=== PATIENT | male | born 1955 | race African-American/Black ===

== ENCOUNTER 2018-09-19 09:10 | Inpatient (IN) | payer BC ==
[2018-09-19] MEDS ORDERED: NORMAL SALINE 1000 ML 1,000 ML IV ONE ×2 (09:43→13:18)
--- NOTE | 2018-09-19 09:46 | ER Document Report ---
ED Medical Screen (RME) - General Chief Complaint: Fever Stated Complaint: FLU SYMPTOMS Time Seen by Provider: 09/19/18 09:40 Notes: 63 years old male with a history of diabetes hypertension hyperlipidemia, brought in today with nearly 2-3 weeks history of general body aches and pain malaise nausea vomiting as well as coughing but largely dry cough. Today her heart rate is 137 with BP around 104 oh systole. Examination he appears to be weak but no other definite positive finding at this point. - Related Data Allergies/Adverse Reactions: No Known Allergies Allergy (Unverified 09/19/18 09:13) Physical Exam - Vital signs Vitals: Temp Pulse Resp BP Pulse Ox 98.0 F 134 H 24 H 104/58 L 97 09/19/18 09:32 09/19/18 09:32 09/19/18 09:32 09/19/18 09:32 09/19/18 09:32 Course - Vital Signs Vital signs: Temp Pulse Resp BP Pulse Ox 98.0 F 134 H 24 H 104/58 L 97 09/19/18 09:32 09/19/18 09:32 09/19/18 09:32 09/19/18 09:32 09/19/18 09:32
--- NOTE | 2018-09-19 10:38 | RADIOLOGY REPORT (SQ) ---
EXAM DESCRIPTION: KUB/ABDOMEN (SINGLE VIEW) COMPLETED DATE/TIME: 09/19/2018 10:25 am REASON FOR STUDY: Nausea vomiting COMPARISON: None. NUMBER OF VIEWS: One view. TECHNIQUE: Supine radiographic image of the abdomen acquired. LIMITATIONS: None. FINDINGS: BOWEL GAS PATTERN: Normal bowel gas pattern. No dilated loops. CALCIFICATIONS: No suspicious calcifications. SOFT TISSUES: No gross mass or suggestion of organomegaly. HARDWARE: None. BONES: No bone lesions or fracture. OTHER: No other significant finding. IMPRESSION: NO RADIOGRAPHIC EVIDENCE FOR ACUTE ABDOMINAL DISEASE. Reading location - IP/workstation name: [email or web address]
--- NOTE | 2018-09-19 10:38 | RADIOLOGY REPORT (SQ) ---
EXAM DESCRIPTION: CHEST SINGLE VIEW COMPLETED DATE/TIME: 09/19/2018 10:25 am REASON FOR STUDY: Cough COMPARISON: None. EXAM PARAMETERS: NUMBER OF VIEWS: One view. TECHNIQUE: Single frontal radiographic view of the chest acquired. RADIATION DOSE: NA LIMITATIONS: None. FINDINGS: LUNGS AND PLEURA: No opacities, masses or pneumothorax. No pleural effusion. MEDIASTINUM AND HILAR STRUCTURES: No masses. Contour normal. HEART AND VASCULAR STRUCTURES: Heart normal in size. Normal vasculature. BONES: No acute findings. HARDWARE: None in the chest. OTHER: No other significant finding. IMPRESSION: NO ACUTE RADIOGRAPHIC FINDING IN THE CHEST. TECHNICAL DOCUMENTATION: JOB ID: [id number] [employer]- All Rights Reserved Reading location - IP/workstation name: [email or web address]
[2018-09-19 11:01] LABS: ABSOLUTE BASOPHILS # (AUTO) 0.1 10^3/uL (0.0-0.2); ABSOLUTE LYMPHOCYTES (AUTO) 1.7 10^3/uL (0.5-4.7); ABSOLUTE MONOCYTES (AUTO) 1.1 10^3/uL (0.1-1.4); ABSOLUTE NEUT (AUTO) 9.9 10^3/uL (1.7-8.2); BASOPHILS % (AUTO) 0.5 % (0-2); HEMATOCRIT 30.1 % (37.9-51.0); HEMOGLOBIN 9.5 g/dL (13.5-17.0); LYMPHOCYTES % (AUTO) 13.1 % (13-45); MEAN CORPUSCULAR HEMOGLOBIN 24.1 pg (27.0-33.4); MEAN CORPUSCULAR HGB CONC 31.5 g/dL (32.0-36.0); MEAN CORPUSCULAR VOLUME 76 fl (80-97); MONOCYTES % (AUTO) 8.4 % (3-13); PLATELET COUNT 178 10^3/uL (150-450); RED BLOOD COUNT 3.95 10^6/uL (4.35-5.55); RED CELL DISTRIBUTION WIDTH 16.4 % (11.5-14.0); TOTAL CELLS COUNTED % (AUTO) 100 %; WHITE BLOOD COUNT 12.6 10^3/uL (4.0-10.5)
[2018-09-19 11:04] LABS: VENOUS BLOOD BASE EXCESS 0.3 mmol/L; VENOUS BLOOD HCO3 23.9 mmol/L (20-32); VENOUS BLOOD PCO2 34.5 mmHg (35-63); VENOUS BLOOD PH 7.46 (7.30-7.42)
--- NOTE | 2018-09-19 11:07 | ER Document Report ---
ED General - General Chief Complaint: Fever Stated Complaint: FLU SYMPTOMS Time Seen by Provider: 09/19/18 09:40 Mode of Arrival: Ambulatory Information source: Patient, Relative - Notes: Patient presents emergency department with complaints of fever aches and pains not able to eat for the past 3 days. reports patient really has not felt well for the past 6 weeks. reports that he had a bloody stool. He was supposed to follow-up with GI for colonoscopy but has not had a chance to do this yet. She reports that he was seen at [facility] yesterday and had blood work done but also negative flu and negative strep test completed. Patient reports for the past 3 days he has had decreased appetite decreased p.o. fluids. He is a diabetic taking metformin. Reports fasting blood sugar was 219. Denies chest pain - HPI Onset: Other Onset/Duration: Persistent Quality of pain: Achy Severity: Severe Pain Level: 5 Associated symptoms: Diarrhea, Earache, Headache, Nausea Exacerbated by: Denies Relieved by: Denies Similar symptoms previously: Yes Recently seen / treated by doctor: Yes - Related Data Allergies/Adverse Reactions: No Known Allergies Allergy (Unverified 09/19/18 09:13) Past Medical History - General Information source: Patient - Social History Smoking Status: Current Every Day Smoker Cigarette use (# per day): Yes Chew tobacco use (# tins/day): No Frequency of alcohol use: None Drug Abuse: None Occupation: Retired Lives with: Family Family History: None Patient has suicidal ideation: No Patient has homicidal ideation: No - Past Medical History Cardiac Medical History: Reports: Hx Hypercholesterolemia, Hx Hypertension Endocrine Medical History: Reports: Hx Diabetes Mellitus Type 2 Renal/ Medical History: Denies: Hx Peritoneal Dialysis GI Medical History: Reports: Hx Gastroesophageal Reflux Disease Surgical Hx: Negative Review of Systems - Review of Systems Notes: Review HPI for review of systems., All other systems negative Physical Exam - Vital signs Vitals: Temp Pulse Resp BP Pulse Ox 98.0 F 134 H 24 H 104/58 L 97 09/19/18 09:32 09/19/18 09:32 09/19/18 09:32 09/19/18 09:32 09/19/18 09:32 - Notes Notes: PHYSICAL EXAMINATION: GENERAL: Looks like he does not feel well in no acute distress HEAD: Atraumatic, normocephalic. EYES: Pupils equal round and reactive to light, extraocular movements intact, sclera anicteric, conjunctiva are normal. ENT: nares patent, oropharynx clear without exudates. Moist mucous membranes. NECK: Normal range of motion, supple without lymphadenopathy LUNGS: CTAB and equal. No wheezes rales or rhonchi. HEART: Regular rate and rhythm without murmurs ABDOMEN: Soft, no tenderness. No guarding, no rebound EXTREMITIES: Normal range of motion, no pitting edema. No cyanosis. NEUROLOGICAL: Cranial nerves grossly intact. Normal sensory/motor exams. PSYCH: Normal mood, normal affect. SKIN: Warm, Dry, normal turgor, no rashes or lesions noted Course - Re-evaluation Re-evalutation: 09/19/18 11:44 +hemacult 09/19/18 11:54 Have requested labs from [facility] to evaluate renal function and H&H 09/19/18 13:22 waiting for labs from [facility]. Labs compared hemoglobin hematocrit was 9.8 and 32.5 yesterday very low drop today to 9.5 and 30., WBC slightly elevated chest x-ray negative. Urine shows leukocytes 09/19/18 15:[address] Medina with all labs. He is advised treat for the UTI. Broad- spectrum Rocephin ordered, patient hydrated with 2 L of fluids. Patient heart rate still tachy 110s. Blood pressure low. Patient still not eating or drinking after fluid and crackers offered. Pt weak, cannot even push himself up in bed. Contacted Dr. aldridge for admission. Patient to be admitted to IMCU. Family and patient informed of admission. Patient seems irritated. - Vital Signs Vital signs: Temp Pulse Resp BP Pulse Ox 98.4 F 134 H 14 100/65 97 09/19/18 14:37 09/19/18 09:32 09/19/18 15:30 09/19/18 15:30 09/19/18 15:30 - Laboratory Result Diagrams: 09/19/18 10:30 09/19/18 10:30 Laboratory results interpreted by me: 09/19/18 09/19/18 09/19/18 09:45 10:30 10:30 WBC 12.6 H RBC 3.95 L Hgb 9.5 L Hct 30.1 L MCV 76 L MCH 24.1 L MCHC 31.5 L RDW 16.4 H Absolute Neutrophils 9.9 H PT 15.5 H VBG pH VBG pCO2 BUN Creatinine Est GFR ( Amer) Est GFR (Non-Af Amer) Glucose POC Glucose 219 H Urine Protein Urine Blood Urine Urobilinogen Ur Leukocyte Esterase 09/19/18 09/19/18 09/19/18 10:30 10:30 12:00 WBC RBC Hgb Hct MCV MCH MCHC RDW Absolute Neutrophils PT VBG pH 7.46 H VBG pCO2 34.5 L BUN 22 H Creatinine 1.50 H Est GFR ( Amer) 57 L Est GFR (Non-Af Amer) 47 L Glucose 197 H POC Glucose Urine Protein 30 H Urine Blood SMALL H Urine Urobilinogen 4.0 H Ur Leukocyte Esterase LARGE H 09/19/18 14:22 WBC RBC Hgb Hct MCV MCH MCHC RDW Absolute Neutrophils PT VBG pH VBG pCO2 BUN Creatinine Est GFR ( Amer) Est GFR (Non-Af Amer) Glucose POC Glucose 160 H Urine Protein Urine Blood Urine Urobilinogen Ur Leukocyte Esterase - Diagnostic Test Radiology reviewed: Image reviewed, Reports reviewed - EKG Interpretation by Mi EKG shows normal: Sinus rhythm Rate: Tachycardia - Consults dr aldridge Consulted provider: will come to ER, will see as inpatient Discharge - Discharge Clinical Impression: Tachycardia Fever Qualifiers: Fever type: unspecified Qualified Code(s): R50.9 - Fever, unspecified UTI (urinary tract infection) Qualifiers: Urinary tract infection type: site unspecified Hematuria presence: with hematuria Qualified Code(s): N39.0 - Urinary tract infection, site not specified Condition: Stable Disposition: ADMITTED INPATIENT Admitting Provider: Hospitalist - Dr. aldridge Unit Admitted: [facility]
[2018-09-19 11:12] LABS: INTERNATIONAL RATION (INR) 1.17; PROTHROMBIN TIME 15.5 SEC (11.4-15.4)
[2018-09-19 11:24] LABS: ALANINE AMINOTRANSFERASE 28 U/L (21-72); ALBUMIN 3.6 g/dL (3.5-5.0); ALKALINE PHOSPHATASE 78 U/L (38-126); ANION GAP 11 (5-19); ASPARTATE AMINO TRANSFERASE 25 U/L (17-59); BILIRUBIN,DIRECT 0.4 mg/dL (0.0-0.4); BILIRUBIN,TOTAL 0.9 mg/dL (0.2-1.3); BLOOD UREA NITROGEN 22 mg/dL (7-20); CALCIUM 8.5 mg/dL (8.4-10.2); CARBON DIOXIDE 24 mmol/L (22-30); CHLORIDE 105 mmol/L (98-107); GLUCOSE 197 mg/dL (75-110); POTASSIUM 3.8 mmol/L (3.6-5.0); SODIUM 139.6 mmol/L (137-145); TOTAL PROTEIN 6.8 g/dL (6.3-8.2)
[2018-09-19] MEDS ORDERED: ACETAMINOPHEN 325 MG TABLET PO ONE (11:50)
--- NOTE | 2018-09-19 12:46 | EKG REPORT ---
SEVERITY:- ABNORMAL ECG - SINUS TACHYCARDIA CONSIDER POSTERIOR INFARCT BORDERLINE T ABNORMALITIES, INFERIOR LEADS : Confirmed by: Issa Levin MD 19-Sep-2018 12:45:51
[2018-09-19 13:01] LABS: A TYPE INFLUENZA AG NEGATIVE (NEGATIVE); B INFLUENZA AG NEGATIVE (NEGATIVE)
[2018-09-19 13:07] LABS: APPEARANCE,URINE SLIGHTLY-CLOUDY; BILIRUBIN,URINE NEGATIVE (NEGATIVE); COLOR,URINE AMBER; GLUCOSE, URINE NEGATIVE (NEGATIVE); KETONES,URINE NEGATIVE (NEGATIVE); LEUKOCYTE ESTERASE,URINE LARGE (NEGATIVE); NITRITE,URINE NEGATIVE (NEGATIVE); PROTEIN,URINE 30 mg/dL (NEGATIVE); URINE SPECIFIC GRAVITY 1.018
[2018-09-19] MEDS ORDERED: CEFTRIAXONE 1 GM/D5W RTU 1 GM/50 ML RTUPB IV ONE (14:26)
[2018-09-19] MEDS ORDERED: ONDANSETRON HCL INJ/PF 4 MG/2 ML SDV ONE (16:51)
[2018-09-19] MEDS ORDERED: RINGERS SOLUTION,LACTATED 1,000 ML IV ONE (17:06)
[2018-09-19] MEDS ORDERED: IPRATROPIUM/ALBUTEROL 0.5-2.5 MG/3 ML AMPUL NEB ONE ×2 (17:11→17:15)
[2018-09-19] MEDS ORDERED: PROMETHAZINE HCL 25 MG TABLET PO PRN (17:12)
[2018-09-19] MEDS ORDERED: PROMETHAZINE HCL INJ 25 MG/1 ML VIAL IV PRN (17:12)
[2018-09-19] MEDS ORDERED: GUAIFENESIN/D-METHORPHAN (200-20 MG) SYRUP 10 ML PO PRN (17:12)
[2018-09-19] MEDS ORDERED: DEXTROSE 40% GEL 15 GM TUBE PO PRN ×2 (17:15)
[2018-09-19] MEDS ORDERED: GLUCAGON,HUMAN RECOMB 1 MG INJ IM PRN (17:15)
[2018-09-19] MEDS ORDERED: DEXTROSE 50%-WATER 25 GM/50 ML DISP.SYRIN IV PRN ×2 (17:15)
[2018-09-19] MEDS ORDERED: METHYLPREDNISOLONE INJ 125 MG/2 ML SDV IV ONE (17:21)
[2018-09-19] MEDS ORDERED: METOPROLOL TARTRATE PF/INJ 5 MG/5 ML SDV IV PRN (17:23)
[2018-09-19] MEDS ORDERED: METOPROLOL TARTRATE PF/INJ 5 MG/5 ML SDV IV ONE ×2 (17:26→18:00)
[2018-09-19] MEDS ORDERED: DOCUSATE SODIUM 100 MG CAPSULE PO PRN (17:29)
[2018-09-19] MEDS ORDERED: METHYLPREDNISOLONE INJ 125 MG/2 ML SDV ONE (17:35)
[2018-09-19] MEDS ORDERED: ONDANSETRON HCL INJ/PF 4 MG/2 ML SDV IV ONE (17:55)
--- NOTE | 2018-09-19 17:58 | PDOC H&P ---
History of Present Illness Admission Date/PCP: 09/19/18 16:03 KATERINE NIEVES PA-C Patient complains of: Increased shortness of breath, cough and profound weakness History of Present Illness: MINERVA MANUEL is a 63 year old male who has been feeling progressively worse over the last 3-4 days. He has been feeling poorly on day and off over the last several weeks. Who developed what he felt might of been a viral respiratory infection. He would take some cold medicine. It would improve. Over the last 2-3 days he has noticed a fever, shaking chills, markedly decreased appetite and decreased energy levels. He typically does not complain and does not like to go to the doctor's office. In addition, he is due for a colonoscopy. He has been noticing blood in his stool. He was Hemoccult positive in the emergency department. Despite 2 L of fluid and a dose of Rocephin, the patient is not feeling any better. He remains tachycardic. His blood pressure was low and he did not take his medications today. His lactic acid was normal. He was referred for ad mission as he did not improve enough with the above interventions to return home. Past Medical History Cardiac Medical History: Reports: Hyperlipidema, Hypertension Pulmonary Medical History: Reports: None EENT Medical History: Reports: None Neurological Medical History: Reports: None Endocrine Medical History: Reports: Diabetes Mellitus Type 2 Renal/ Medical History: Reports: None Malignancy Medical History: Reports: None GI Medical History: Reports: Gastroesophageal Reflux Disease Musculoskeltal Medical History: Reports: None Skin Medical History: Reports: None Psychiatric Medical History: Reports: Tobacco Dependency Traumatic Medical History: Reports: None Hematology: Reports: Anemia Infectious Medical History: Reports: None Past Surgical History Past Surgical History: Reports: None Social History Information Source: Patient, Relative - Lives with: Family Smoking Status: Current Every Day Smoker Cigarettes Packs Per Day: 1 Frequency of Alcohol Use: Occasional Hx Recreational Drug Use: No Drugs: None Hx Prescription Drug Abuse: No Past Social History Note: The patient is . He has 1 daughter. - Advance Directive Resuscitation Status: Full Code Surrogate healthcare decision maker:: Although the patient does not have a formal healthcare proxy declaration, his Mya is the designated decision maker. Family History Family History: Malignancy Parental Family History Reviewed: Yes Children Family History Reviewed: Yes Sibling(s) Family History Reviewed.: Yes Medication/Allergy Allergies/Adverse Reactions: No Known Allergies Allergy (Unverified 09/19/18 09:13) Review of Systems Constitutional: PRESENT: chills, fatigue, fever(s), weakness Eyes: ABSENT: visual disturbances Ears: ABSENT: hearing changes Nose, Mouth, and Throat: ABSENT: mouth pain, sore throat Cardiovascular: PRESENT: dyspnea on exertion, other - Tachycardia. ABSENT: chest pain Respiratory: PRESENT: cough, dyspnea, sputum Gastrointestinal: PRESENT: heartburn, hematochezia Genitourinary: ABSENT: dysuria, hematuria Musculoskeletal: ABSENT: back pain, deformity, joint swelling Integumentary: ABSENT: erythema, lesions, rash Neurological: ABSENT: confusion, memory loss, syncope, vertigo Psychiatric: ABSENT: anxiety, depression Endocrine: ABSENT: cold intolerance, heat intolerance Hematologic/Lymphatic: ABSENT: easy bruising, lymphadenopathy Allergic/Immunologic: ABSENT: seasonal rhinorrhea Physical Exam Vital Signs: Temp Pulse Resp BP Pulse Ox 98.4 F 134 H 14 100/65 97 09/19/18 14:37 09/19/18 09:32 09/19/18 15:30 09/19/18 15:30 09/19/18 15:30 Intake & Output 09/18/18 09/19/18 09/20/18 06:59 06:59 06:59 Intake Total 2049 Balance 2049 Weight 94.4 kg General appearance: PRESENT: cooperative - The patient did exhibit somewhat limited interaction. His did answer a lot of questions., mild distress, well-developed Head exam: PRESENT: normocephalic Eye exam: PRESENT: conjunctiva pale Ear exam: PRESENT: normal external ear exam Mouth exam: PRESENT: dry mucosa, tongue midline Neck exam: ABSENT: carotid bruit, JVD, lymphadenopathy Respiratory exam: PRESENT: tachypnea, other - Congested cough with congested breath sounds. ABSENT: chest wall tenderness, rales, stridor, wheezes Cardiovascular exam: PRESENT: +S1, +S2, tachycardia GI/Abdominal exam: PRESENT: normal bowel sounds, soft. ABSENT: tenderness Rectal exam: PRESENT: deferred, other - Performed by the emergency department physician. Hemoccult positive. Extremities exam: ABSENT: calf tenderness, pedal edema Musculoskeletal exam: PRESENT: normal inspection Neurological exam: PRESENT: awake, oriented to person, oriented to place, oriented to situation. ABSENT: alert - Somewhat somnolent as noted above. Psychiatric exam: PRESENT: flat affect. ABSENT: agitated Focused psych exam: ABSENT: restlessness Results Laboratory Results: 09/19/18 10:30 09/19/18 10:30 09/19/18 09/19/18 09/19/18 10:30 10:30 10:30 WBC 12.6 H RBC 3.95 L Hgb 9.5 L Hct 30.1 L MCV 76 L MCH 24.1 L MCHC 31.5 L RDW 16.4 H Plt Count 178 Seg Neutrophils % 78.0 Lymphocytes % 13.1 Monocytes % 8.4 Eosinophils % 0.0 Basophils % 0.5 Absolute Neutrophils 9.9 H Absolute Lymphocytes 1.7 Absolute Monocytes 1.1 Absolute Eosinophils 0.0 Absolute Basophils 0.1 VBG pH VBG pCO2 VBG HCO3 VBG Base Excess Sodium 139.6 Potassium 3.8 Chloride 105 Carbon Dioxide 24 Anion Gap 11 BUN 22 H Creatinine 1.50 H Est GFR ( Amer) 57 L Est GFR (Non-Af Amer) 47 L Glucose 197 H Lactic Acid 1.5 Calcium 8.5 Total Bilirubin 0.9 AST 25 ALT 28 Alkaline Phosphatase 78 Total Protein 6.8 Albumin 3.6 Urine Color Urine Appearance Urine pH Ur Specific Rowe Urine Protein Urine Glucose (UA) Urine Ketones Urine Blood Urine Nitrite Ur Leukocyte Esterase Urine WBC (Auto) Urine RBC (Auto) 09/19/18 09/19/18 10:30 12:00 WBC RBC Hgb Hct MCV MCH MCHC RDW Plt Count Seg Neutrophils % Lymphocytes % Monocytes % Eosinophils % Basophils % Absolute Neutrophils Absolute Lymphocytes Absolute Monocytes Absolute Eosinophils Absolute Basophils VBG pH 7.46 H VBG pCO2 34.5 L VBG HCO3 23.9 VBG Base Excess 0.3 Sodium Potassium Chloride Carbon Dioxide Anion Gap BUN Creatinine Est GFR ( Amer) Est GFR (Non-Af Amer) Glucose Lactic Acid Calcium Total Bilirubin AST ALT Alkaline Phosphatase Total Protein Albumin Urine Color LUPE Urine Appearance SLIGHTLY-CLOUDY Urine pH 5.0 Ur Specific Rowe 1.018 Urine Protein 30 H Urine Glucose (UA) NEGATIVE Urine Ketones NEGATIVE Urine Blood SMALL H Urine Nitrite NEGATIVE Ur Leukocyte Esterase LARGE H Urine WBC (Auto) 48 Urine RBC (Auto) 2 Impressions: Chest X-Ray 09/19/18 09:44 IMPRESSION: NO ACUTE RADIOGRAPHIC FINDING IN THE CHEST. KUB X-Ray 09/19/18 09:45 IMPRESSION: NO RADIOGRAPHIC EVIDENCE FOR ACUTE ABDOMINAL DISEASE. Assessment & Plan - Diagnosis (1) Cystitis Is this a current diagnosis for this admission?: Yes Plan: The patient did have a positive urinalysis. Urine culture is pending. This is currently the only obvious focus of infection. I have placed the patient on ceftriaxone and levofloxacin as per the discussion below (2) Respiratory failure with hypoxia Qualifiers: Chronicity: acute Qualified Code(s): J96.01 - Acute respiratory failure with hypoxia Is this a current diagnosis for this admission?: Yes Plan: The patient is requiring oxygen supplementation. He is still quite tachypneic and exhibits tachycardia despite several liters of fluid. His cough is beginning to produce sputum. We will collect a specimen for the lab. He is a smoker but does not have a history of chronic obstructive pulmonary disease. I will start DuoNeb scheduled therapy with Xopenex nebulizers as needed. He will also receive intravenous steroids and the antibiotics as noted above for high likelihood of pneumonia. (3) Tachycardia Is this a current diagnosis for this admission?: Yes Plan: The patient has remained tachycardic despite several liters of fluid. Normally he is not on any negative chronotropic medications. He does take losartan 50 mg daily for his blood pressure. His blood pressure currently is on the low side and so we are holding his losartan. (4) Diabetes mellitus, type 2 Qualifiers: Diabetes mellitus vermin exterminator insulin use: without halfway use Diabetes m ellitus complication status: without complication Qualified Code(s): E11.9 - Type 2 diabetes mellitus without complications Is this a current diagnosis for this admission?: Yes Plan: The patient was on metformin 1 g twice daily. We are checking a hemoglobin A1c. It is unknown if his diabetes is controlled or not. I am holding his metformin as his appetite is been very poor. We will use a sliding scale of regular insulin until the patient improves enough that he is on her consistent diet and then we will resume his metformin. (5) Blood in stool Is this a current diagnosis for this admission?: Yes Plan: The patient is in the process of being worked up for the blood in his stool. He is still Hemoccult positive. He was supposed to be scheduled for a colonoscopy but he has not scheduled the procedure yet. He is anemic. With the aggressive fluid resuscitation he will likely experience hemodilution and his hemoglobin will decrease. If his hemoglobin drops below 8 we will transfuse packed red blood cells. If there is a clinical indication we may obtain a colonoscopy during his hospitalization. (6) Anemia due to chronic blood loss Is this a current diagnosis for this admission?: Yes Plan: The initial episode of blood in the stool occurred more than a month ago. January colonoscopy was requested. The patient has not yet scheduled the examination. He is currently on folic acid but he is not on iron or vitamin B supplements. (7) Hypertension Qualifiers: Hypertension type: essential hypertension Qualified Code(s): I10 - Essential (primary) hypertension Is this a current diagnosis for this admission?: Yes Plan: The patient is typically on losartan 50 mg daily. This is on hold due to his marginal blood pressures. We will resume when clinically indicated. (8) Hyperlipidemia Qualifiers: Hyperlipidemia type: unspecified Qualified Code(s): E78.5 - Hyperlipidemia, unspecified Is this a current diagnosis for this admission?: Yes Plan: The patient is on simvastatin 40 mg daily. We will continue his current dose during this hospitalization. (9) Gastroesophageal reflux disease Qualifiers: Esophagitis presence: esophagitis presence not specified Qualified Code(s): K21.9 - Gastro-esophageal reflux disease without esophagitis Is this a current diagnosis for this admission?: Yes Plan: The patient is on omeprazole 20 mg daily at home. We will substitute la nsoprazole during his hospitalization. - Time Time Spent: Greater than 70 Minutes Smoking Cessation Education: 3 to 10 minutes Medications reviewed and adjusted accordingly: Yes Anticipated discharge: Home - Inpatient Certification Based on my medical assessment, after consideration of the patient's comorbidities, presenting symptoms, or acuity I expect that the services needed warrant INPATIENT care.: Yes I certify that my determination is in accordance with my understanding of Medicare's requirements for reasonable and necessary INPATIENT services [42 CFR 412.3e].: Yes Medical Necessity: Need For IV Fluids, Need for Nebulizer Therapy and Monitoring of Response, Need for IV Antibiotics, Risk of Complication if Not Cared For in Hospital Post Hospital Care: D/C Swine Nutritionist Documentation
[2018-09-19] MEDS ORDERED: LEVOFLOXACIN 750 MG/D5W RTU 750 MG/150 ML RTUPB IV SCH (18:00)
[2018-09-19 18:19] LABS: ARTERIAL BLOOD BASE EXCESS -1.4 mmol/L; ARTERIAL BLOOD FIO2 2LNC; ARTERIAL BLOOD H2CO3 0.98 mmol/L (1.05-1.35); ARTERIAL BLOOD O2 SATURATION 94.6 % (94-98); ARTERIAL BLOOD PCO2 32.6 mmHg (35-45); ARTERIAL BLOOD PH 7.45 (7.35-7.45); ARTERIAL BLOOD PO2 68.6 mmHg (80-100)
[2018-09-19] MEDS: ACETAMINOPHEN 325 MG TABLET PO PRN (18:39)
[2018-09-19 20:19] LABS: ABSOLUTE LYMPHOCYTES (AUTO) 0.7 10^3/uL (0.5-4.7); ABSOLUTE MONOCYTES (AUTO) 0.7 10^3/uL (0.1-1.4); ABSOLUTE NEUT (AUTO) 9.5 10^3/uL (1.7-8.2); BASOPHILS % (AUTO) 0.3 % (0-2); HEMOGLOBIN 8.7 g/dL (13.5-17.0); LYMPHOCYTES % (AUTO) 6.3 % (13-45); MEAN CORPUSCULAR HEMOGLOBIN 24.4 pg (27.0-33.4); MEAN CORPUSCULAR HGB CONC 32.2 g/dL (32.0-36.0); MEAN CORPUSCULAR VOLUME 76 fl (80-97); MONOCYTES % (AUTO) 6.6 % (3-13); PLATELET COUNT 142 10^3/uL (150-450); RED BLOOD COUNT 3.56 10^6/uL (4.35-5.55); RED CELL DISTRIBUTION WIDTH 16.2 % (11.5-14.0); SEGMENTED NEUTROPHILS % (AUTO) 86.8 % (42-78); TOTAL CELLS COUNTED % (AUTO) 100 %; WHITE BLOOD COUNT 10.9 10^3/uL (4.0-10.5)
[2018-09-19] MEDS: IPRATROPIUM/ALBUTEROL 0.5-2.5 MG/3 ML AMPUL NEB SCH (20:25)
[2018-09-19] MEDS: BUDESONIDE NEB 0.5 MG/2 ML AMPUL NEB SCH (20:25)
[2018-09-19 20:36] LABS: ANION GAP 7 (5-19); BLOOD UREA NITROGEN 22 mg/dL (7-20); CALCIUM 7.8 mg/dL (8.4-10.2); CARBON DIOXIDE 23 mmol/L (22-30); CHLORIDE 109 mmol/L (98-107); GLUCOSE 184 mg/dL (75-110); POTASSIUM 4.1 mmol/L (3.6-5.0); SODIUM 139.1 mmol/L (137-145)
[2018-09-19] MEDS: GUAIFENESIN 600 MG TABLET.SA PO SCH (21:25)
[2018-09-19] MEDS: ENOXAPARIN SODIUM INJ 40 MG/0.4 ML DISP.SYRIN SUBCUT SCH (21:25)
[2018-09-19] MEDS: SIMVASTATIN 40 MG TABLET PO SCH (21:25)
[2018-09-20] MEDS ORDERED: NORMAL SALINE 1000 ML 1,000 ML IV PRN (00:58)
[2018-09-20] MEDS ORDERED: NORMAL SALINE 500 ML IV ONE (01:20)
[2018-09-20] MEDS: IPRATROPIUM/ALBUTEROL 0.5-2.5 MG/3 ML AMPUL NEB SCH ×4 (02:50→19:13)
[2018-09-20] MEDS ORDERED: ERTAPENEM SODIUM INJ 1 GM VIAL IV PRN (04:07)
[2018-09-20] MEDS ORDERED: ERTAPENEM SODIUM INJ 1 GM VIAL ONE (04:10)
[2018-09-20] MEDS ORDERED: ERTAPENEM SODIUM 1 GM in NORMAL SALINE 50 ML IV ONE (05:00)
[2018-09-20] MEDS: METHYLPREDNISOLONE INJ 40 MG/1 ML SDV IV SCH ×3 (05:09→22:53)
[2018-09-20] MEDS: LANSOPRAZOLE 30 MG TAB.RAP.DR PO SCH (05:09)
[2018-09-20 06:42] LABS: ABSOLUTE LYMPHOCYTES (AUTO) 1.2 10^3/uL (0.5-4.7); ABSOLUTE MONOCYTES (AUTO) 0.3 10^3/uL (0.1-1.4); ABSOLUTE NEUT (AUTO) 7.3 10^3/uL (1.7-8.2); BASOPHILS % (AUTO) 0.2 % (0-2); HEMATOCRIT 26.9 % (37.9-51.0); HEMOGLOBIN 8.6 g/dL (13.5-17.0); LYMPHOCYTES % (AUTO) 13.6 % (13-45); MEAN CORPUSCULAR HEMOGLOBIN 24.5 pg (27.0-33.4); MEAN CORPUSCULAR VOLUME 77 fl (80-97); MONOCYTES % (AUTO) 3.3 % (3-13); PLATELET COUNT 137 10^3/uL (150-450); RED CELL DISTRIBUTION WIDTH 16.4 % (11.5-14.0); SEGMENTED NEUTROPHILS % (AUTO) 82.9 % (42-78); TOTAL CELLS COUNTED % (AUTO) 100 %; WHITE BLOOD COUNT 8.8 10^3/uL (4.0-10.5)
[2018-09-20 07:02] LABS: ANION GAP 9 (5-19); BLOOD UREA NITROGEN 30 mg/dL (7-20); CALCIUM 7.6 mg/dL (8.4-10.2); CARBON DIOXIDE 21 mmol/L (22-30); CHLORIDE 111 mmol/L (98-107); GLUCOSE 208 mg/dL (75-110); POTASSIUM 4.4 mmol/L (3.6-5.0); SODIUM 141.3 mmol/L (137-145)
[2018-09-20] MEDS: INSULIN REG, HUMAN 100 UNIT/ML 3 ML VIAL (PYX) SUBCUT PRN (08:49)
[2018-09-20] MEDS: BUDESONIDE NEB 0.5 MG/2 ML AMPUL NEB SCH ×2 (08:51→19:13)
--- NOTE | 2018-09-20 09:33 | RADIOLOGY REPORT (SQ) ---
EXAM DESCRIPTION: CHEST SINGLE VIEW COMPLETED DATE/TIME: 09/20/2018 9:03 am REASON FOR STUDY: Pneumonia COMPARISON: 09/19/2018. EXAM PARAMETERS: NUMBER OF VIEWS: One view. TECHNIQUE: Single frontal radiographic view of the chest acquired. RADIATION DOSE: NA LIMITATIONS: None. FINDINGS: LUNGS AND PLEURA: Mild interstitial prominence. No focal infiltrates, masses or pneumotho rax. No pleural effusion. MEDIASTINUM AND HILAR STRUCTURES: No masses. Contour normal. HEART AND VASCULAR STRUCTURES: Mild cardiomegaly. Normal vasculature. BONES: No acute findings. Degenerative changes in the spine. HARDWARE: None in the chest. OTHER: No other significant finding. IMPRESSION: MILD CARDIOMEGALY. MILD INTERSTITIAL PROMINENCE, PROBABLY DUE TO SCARRING. NO FOCAL IN FILTRATE. TECHNICAL DOCUMENTATION: JOB ID: [id number] [employer]- All Rights Reserved Reading location - IP/workstation name: [email or web address]
[2018-09-20] MEDS ORDERED: CEFTRIAXONE 1 GM/D5W RTU 1 GM/50 ML RTUPB IV SCH (10:00)
[2018-09-20] MEDS: ENOXAPARIN SODIUM INJ 40 MG/0.4 ML DISP.SYRIN SUBCUT SCH (10:27)
[2018-09-20] MEDS: GUAIFENESIN 600 MG TABLET.SA PO SCH ×2 (10:31→22:54)
[2018-09-20] MEDS: POLYETHYLENE GLYCOL 3350 POWDER 17 GM/1 PACKET PO SCH (10:33)
[2018-09-20] MEDS ORDERED: DEXTROSE 5%-WATER 250 ML with NOREPINEPHRINE BITARTRATE 4 MG IV PRN ×2 (11:57)
[2018-09-20] MEDS ORDERED: VANCOMYCIN HCL 0 MG in DEXTROSE 5%-WATER 250 ML IV NR (12:00)
[2018-09-20] MEDS ORDERED: LIDOCAINE 1% INJ-PF (10 MG/ML) 30 ML SDV ONE (13:09)
--- NOTE | 2018-09-20 13:49 | PDOC PROGRESS REPORT ---
Subjective Progress Note for:: 09/20/18 Subjective:: The patient's blood pressure was low through the night. He received multiple boluses of IV fluid. His blood pressure did not improve significantly. For that reason we have transferred him to the ICU to institute vasopressor therapy. In addition both of his blood cultures are growing gram-positive cocci and so vancomycin was added to his regimen. Reason For Visit: PNEUMONIA Physical Exam Vital Signs: Temp Pulse Resp BP Pulse Ox 97.4 F 92 18 83/54 L 97 09/20/18 07:42 09/20/18 08:51 09/20/18 08:51 09/20/18 07:42 09/20/18 08:51 Pulse Oximeter Continuous Start: 09/19/18 17:08 Freq: RTQ4 Status: Active Protocol: Document 09/20/18 08:51 HCR (Rec: 09/20/18 10:41 HCR [email or web address]) Pulse Oximetry Assessment Oxygen Saturation (92-100) 97 Oxygen Flow Rate (L/min) 3 Oxygen Delivery Method Nasal Cannula Equipment Usage Equipment in Use Continuous SpO2 Machine # 13 Intake & Output 09/19/18 09/20/18 09/21/18 06:59 06:59 06:59 Intake Total 2200 Balance 2200 Weight 95.5 kg General appearance: PRESENT: cooperative, mild distress Head exam: PRESENT: normocephalic Eye exam: PRESENT: conjunctiva pale Neck exam: ABSENT: carotid bruit, lymphadenopathy Respiratory exam: PRESENT: clear to auscultation cleve, symmetrical, unlabored. ABSENT: accessory muscle use, rales, rhonchi, wheezes Cardiovascular exam: PRESENT: +S1, +S2, tachycardia GI/Abdominal exam: PRESENT: normal bowel sounds, soft. ABSENT: distended, tenderness Extremities exam: ABSENT: pedal edema Neurological exam: PRESENT: awake, oriented to person, oriented to place, oriented to time, oriented to situation Psychiatric exam: PRESENT: flat affect. ABSENT: agitated, anxious Focused psych exam: ABSENT: restlessness Results Laboratory Results: 09/20/18 05:40 09/20/18 05:40 09/19/18 09/19/18 09/19/18 17:30 19:47 19:47 WBC 10.9 H RBC 3.56 L Hgb 8.7 L Hct 27.0 L MCV 76 L MCH 24.4 L MCHC 32.2 RDW 16.2 H Plt Count 142 L Seg Neutrophils % 86.8 H Lymphocytes % 6.3 L Monocytes % 6.6 Eosinophils % 0.0 Basophils % 0.3 Absolute Neutrophils 9.5 H Absolute Lymphocytes 0.7 Absolute Monocytes 0.7 Absolute Eosinophils 0.0 Absolute Basophils 0.0 Carbonic Acid 0.98 L HCO3/H2CO3 Ratio 22:1 ABG pH 7.45 ABG pCO2 32.6 L ABG pO2 68.6 L ABG HCO3 22.0 ABG O2 Saturation 94.6 ABG Base Excess -1.4 FiO2 2LNC Sodium 139.1 Potassium 4.1 Chloride 109 H Carbon Dioxide 23 Anion Gap 7 BUN 22 H Creatinine 1.32 H Est GFR ( Amer) > 60 Est GFR (Non-Af Amer) 55 L Glucose 184 H Calcium 7.8 L Magnesium 2.0 09/20/18 09/20/18 05:40 05:40 WBC 8.8 RBC 3.50 L Hgb 8.6 L Hct 26.9 L MCV 77 L MCH 24.5 L MCHC 32.0 RDW 16.4 H Plt Count 137 L Seg Neutrophils % 82.9 H Lymphocytes % 13.6 Monocytes % 3.3 Eosinophils % 0.0 Basophils % 0.2 Absolute Neutrophils 7.3 Absolute Lymphocytes 1.2 Absolute Monocytes 0.3 Absolute Eosinophils 0.0 Absolute Basophils 0.0 Carbonic Acid HCO3/H2CO3 Ratio ABG pH ABG pCO2 ABG pO2 ABG HCO3 ABG O2 Saturation ABG Base Excess FiO2 Sodium 141.3 Potassium 4.4 Chloride 111 H Carbon Dioxide 21 L Anion Gap 9 BUN 30 H Creatinine 1.30 H Est GFR ( Amer) > 60 Est GFR (Non-Af Amer) 56 L Glucose 208 H Calcium 7.6 L Magnesium 09/19/18 18:10 Sputum Gram Stain - Final 09/19/18 18:10 Sputum Sputum Culture - Final Impressions: KUB X-Ray 09/19/18 09:45 IMPRESSION: NO RADIOGRAPHIC EVIDENCE FOR ACUTE ABDOMINAL DISEASE. Chest X-Ray 09/20/18 06:00 IMPRESSION: MILD CARDIOMEGALY. MILD INTERSTITIAL PROMINENCE, PROBABLY DUE TO SCARRING. NO FOCAL INFILTRATE. Assessment & Plan - Diagnosis (1) Cystitis Is this a current diagnosis for this admission?: Yes Plan: A urine was submitted. Urinalysis revealed positive leukocyte esterase and white blood cells. It is no growth so far. (2) Respiratory failure with hypoxia Qualifiers: Chronicity: acute Qualified Code(s): J96.01 - Acute respiratory failure with hypoxia Is this a current diagnosis for this admission?: Yes Plan: Still requiring supplemental oxygen. Oxygen saturations are satisfactory. Lungs are clear. We will continue supplemental oxygen as needed. (3) Tachycardia Is this a current diagnosis for this admission?: Yes Plan: Some improvement with IV fluids. Still with occasional tachycardia. We will continue to monitor. (4) Diabetes mellitus, type 2 Qualifiers: Diabetes mellitus exterminator helper termite insulin use: without [facility] use Diabetes mellitus complication status: without complication Qualified Code(s): E11.9 - Type 2 diabetes mellitus without complications Is this a current diagnosis for this admission?: Yes Plan: Fingerstick glucoses in the high 100s range with occasional readings over 200. I will need to make adjustments in his insulin especially as his diet improves. (5) Blood in stool Is this a current diagnosis for this admission?: Yes Plan: Hemoglobin has decreased a little bit but is likely delusional from the multiple fluid boluses. We will continue to monitor for blood in the stool. (6) Anemia due to chronic blood loss Is this a current diagnosis for this admission?: Yes Plan: Continue to monitor hemoglobin. Transfuse if necessary. (7) Hypertension Qualifiers: Hypertension type: essential hypertension Qualified Code(s): I10 - Essential (primary) hypertension Is this a current diagnosis for this admission?: Yes Plan: Blood pressures have dropped despite fluid boluses. We will start levo fed and try and keep his systolic pressure between 101 110. (8) Hyperlipidemia Qualifiers: Hyperlipidemia type: unspecified Qualified Code(s): E78.5 - Hyperlipidemia, unspecified Is this a current diagnosis for this admission?: Yes Plan: The patient is on simvastatin 40 mg daily. We will continue his current dose during this hospitalization. (9) Gastroesophageal reflux disease Qualifiers: Esophagitis presence: esophagitis presence not specified Qualified Code(s): K21.9 - Gastro-esophageal reflux disease without esophagitis Is this a current diagnosis for this admission?: Yes Plan: The patient is on omeprazole 20 mg daily at home. We will substitute lansoprazole during his hospitalization. (10) Gram-positive cocci bacteremia Is this a current diagnosis for this admission?: Yes Plan: Blood cultures are positive for gram-positive cocci in clusters. Vancomycin was added to the antibiotic regimen. Await for final identification and sensitivities to narrow the spectrum of antibiotics. - Time Time Spent with patient: 35 or more minutes Medications reviewed and adjusted accordingly: Yes
--- NOTE | 2018-09-20 13:56 | RADIOLOGY REPORT (SQ) ---
EXAM DESCRIPTION: CHEST SINGLE VIEW COMPLETED DATE/TIME: 09/20/2018 1:39 pm REASON FOR STUDY: Central Line Placement COMPARISON: 09/20/2018. EXAM PARAMETERS: NUMBER OF VIEWS: One view. TECHNIQUE: Single frontal radiographic view of the chest acquired. RADIATION DOSE: NA LIMITATIONS: None. FINDINGS: LUNGS AND PLEURA: Mild interstitial prominence. No focal infiltrates, masses or pneumotho rax. No pleural effusion. MEDIASTINUM AND HILAR STRUCTURES: No masses. Contour normal. HEART AND VASCULAR STRUCTURES: Mild cardiomegaly. Normal vasculature. BONES: No acute findings. Degenerative changes in the spine. HARDWARE: Central line on the right side. Tip of the catheter extends cephalad into the lower neck. OTHER: No other significant finding. IMPRESSION: CENTRAL LINE DESCRIBED, EXTENDING INTO THE LOWER NECK. NO CHANGE IN APPEARANCE OF TH E CHEST. TECHNICAL DOCUMENTATION: JOB ID: [id number] [employer]- All Rights Reserved Reading location - IP/workstation name: [email or web address]
[2018-09-20] MEDS: VANCOMYCIN HCL 1,250 MG in DEXTROSE 5%-WATER 250 ML IV SCH ×2 (14:02→22:59)
[2018-09-20] MEDS ORDERED: NOREPINEPHRINE BITARTRATE INJ/PF 4 MG/4 ML SDV IV ONE (14:58)
--- NOTE | 2018-09-20 15:45 | Operative Report ---
Bedside Procedure - History of Present Illness Indication for Procedure: pneumonia Surgeon: CARLOS EDUARDO GREENE - Central Line Right Internal jugular Consent obtained: Yes Central line pre-insertion: Sterile PPE donned, Chloraprep applied Central line lumen type: Triple Anesthetic type: 1% Lidocaine mL's of anesthesia: 3 Ultrasound guided: No CM at insertion site: 12 Line secured with sutures: Yes Central line post-insertion: Blood return from lumens, Biopatch applied, Sutured, Sterile dressing applied, Position confirmed w/ CXR Number of attempts: 1 Complications: No
--- NOTE | 2018-09-20 16:29 | RADIOLOGY REPORT (SQ) ---
EXAM DESCRIPTION: CHEST SINGLE VIEW COMPLETED DATE/TIME: 09/20/2018 4:13 pm REASON FOR STUDY: Central Line Placement COMPARISON: 09/20/2018 at 1331 hours. EXAM PARAMETERS: NUMBER OF VIEWS: One view. TECHNIQUE: Single frontal radiographic view of the chest acquired. RADIATION DOSE: NA LIMITATIONS: None. FINDINGS: LUNGS AND PLEURA: Interstitial prominence. No opacities, masses or pneumothorax. No pleur al effusion. MEDIASTINUM AND HILAR STRUCTURES: No masses. Contour normal. HEART AND VASCULAR STRUCTURES: Mild cardiomegaly. BONES: No acute findings. Degenerative changes in the spine. HARDWARE: The previous central line has been replaced. Current central line from a jugular approach on the right side with the tip at the level of the superior vena cava. OTHER: No other significant finding. IMPRESSION: CENTRAL LINE DESCRIBED IN SATISFACTORY POSITION. NO PNEUMOTHORAX. NO CHANGE IN APPE ARANCE OF THE CHEST. TECHNICAL DOCUMENTATION: JOB ID: [id number] [employer]- All Rights Reserved Reading location - IP/workstation name: [email or web address] [place]
--- NOTE | 2018-09-20 21:54 | PDOC PROGRESS REPORT ---
Subjective Progress Note for:: 09/20/18 Subjective:: The patient was having ongoing hypotension despite multiple fluid boluses through the night. For that reason he was transferred to the intensive care unit for vasopressor therapy as well as ongoing antibiotics and close observation. Reason For Visit: PNEUMONIA Physical Exam Vital Signs: Temp Pulse Resp BP Pulse Ox 97.7 F 98 22 H 102/72 96 09/20/18 19:32 09/20/18 19:13 09/20/18 19:13 09/20/18 18:00 09/20/18 19:13 Pulse Oximeter Continuous Start: 09/19/18 17:08 Freq: RTQ4 Status: Complete Protocol: Document 09/20/18 12:00 LDA (Rec: 09/20/18 14:03 LDA [email or web address]) Pulse Oximetry Assessment Equipment Usage Equipment Discontinued Continuous SpO2 Machine # 13 Intake & Output 09/19/18 09/20/18 09/21/18 06:59 06:59 06:59 Intake Total 2200 250 Output Total 350 Balance 2200 -100 Weight 95.5 kg General appearance: PRESENT: no acute distress Respiratory exam: PRESENT: clear to auscultation cleve, symmetrical, unlabored. ABSENT: rales, rhonchi, wheezes Cardiovascular exam: PRESENT: RRR, +S1, +S2 GI/Abdominal exam: PRESENT: normal bowel sounds, soft. ABSENT: distended, guarding, tenderness Extremities exam: ABSENT: pedal edema Neurological exam: PRESENT: alert, awake, oriented to person, oriented to place, oriented to time, oriented to situation Psychiatric exam: PRESENT: flat affect Results Laboratory Results: 09/20/18 05:40 09/20/18 05:40 09/20/18 09/20/18 05:40 05:40 WBC 8.8 RBC 3.50 L Hgb 8.6 L Hct 26.9 L MCV 77 L MCH 24.5 L MCHC 32.0 RDW 16.4 H Plt Count 137 L Seg Neutrophils % 82.9 H Lymphocytes % 13.6 Monocytes % 3.3 Eosinophils % 0.0 Basophils % 0.2 Absolute Neutrophils 7.3 Absolute Lymphocytes 1.2 Absolute Monocytes 0.3 Absolute Eosinophils 0.0 Absolute Basophils 0.0 Sodium 141.3 Potassium 4.4 Chloride 111 H Carbon Dioxide 21 L Anion Gap 9 BUN 30 H Creatinine 1.30 H Est GFR ( Amer) > 60 Est GFR (Non-Af Amer) 56 L Glucose 208 H Calcium 7.6 L 09/19/18 18:10 Sputum Gram Stain - Final 09/19/18 18:10 Sputum Sputum Culture - Final Impressions: KUB X-Ray 09/19/18 09:45 IMPRESSION: NO RADIOGRAPHIC EVIDENCE FOR ACUTE ABDOMINAL DISEASE. Chest X-Ray 09/20/18 15:36 IMPRESSION: CENTRAL LINE DESCRIBED IN SATISFACTORY POSITION. NO PNEUMOTHORAX. NO CHANGE IN APPEARANCE OF THE CHEST. Assessment & Plan - Diagnosis (1) Cystitis Is this a current diagnosis for this admission?: Yes Plan: Blood cultures are no growth so far. (2) Respiratory failure with hypoxia Qualifiers: Chronicity: acute Qualified Code(s): J96.01 - Acute respiratory failure with hypoxia Is this a current diagnosis for this admission?: Yes Plan: Unsure of the exact etiology. Continue oxygen supplementation. On the chest x- ray today there was a suggestion of some vascular congestion. This is likely due to the multiple fluid boluses from last evening. (3) Tachycardia Is this a current diagnosis for this admission?: Yes Plan: Still with intermittent tachycardia. We may need to add low-dose metoprolol. (4) Diabetes mellitus, type 2 Qualifiers: Diabetes mellitus emt intermediate insulin use: without emt intermediate use Diabetes mellitus complication status: without complication Qualified Code(s): E11.9 - Type 2 diabetes mellitus without complications Is this a current diagnosis for this admission?: Yes Plan: Continue sliding scale. Consider resuming metformin. (5) Blood in stool Is this a current diagnosis for this admission?: Yes Plan: No josiah blood noted. Continue to monitor. (6) Anemia due to chronic blood loss Is this a current diagnosis for this admission?: Yes Plan: Hemoglobin is lower today. Some of this is likely delusional. If he continues to decrease we may need to provide transfusion of packed red blood cells. (7) Hypertension Qualifiers: Hypertension type: essential hypertension Qualified Code(s): I10 - Essential (primary) hypertension Is this a current diagnosis for this admission?: Yes Plan: Was on levo fed. It is likely that as his infection is treated his blood pressure will improve. We will wean him off of the vasopressor therapy and likely resume his antihypertensive medications when clinically indicated. (8) Hyperlipidemia Qualifiers: Hyperlipidemia type: unspecified Qualified Code(s): E78.5 - Hyperlipidemia, unspecified Is this a current diagnosis for this admission?: Yes Plan: Continue statin therapy (9) Gastroesophageal reflux disease Qualifiers: Esophagitis presence: esophagitis presence not specified Qualified Code(s): K21.9 - Gastro-esophageal reflux disease without esophagitis Is this a current diagnosis for this admission?: Yes Plan: Continue proton pump inhibitor therapy (10) Gram-positive cocci bacteremia Is this a current diagnosis for this admission?: Yes Plan: 1 bottle from each set of blood cultures has gram-positive cocci in clusters. Vancomycin has been added. Await final identification and sensitivities. Once these are available he is antibiotic therapy can be streamlined. - Time Time Spent with patient: 15-24 minutes Medications reviewed and adjusted accordingly: Yes
--- NOTE | 2018-09-20 21:56 | Operative Report ---
Bedside Procedure - History of Present Illness Indication for Procedure: Vasopressor therapy Date: 09/20/18 Surgeon: SOHA ENCISO - Central Line Right Subclavian Time completed: 12:00 Consent obtained: Yes Central line pre-insertion: Sterile PPE donned, Chloraprep applied, Sterile drapes applied Central line lumen type: Triple Anesthetic type: 1% Lidocaine Ultrasound guided: No Line secured with sutures: Yes Central line post-insertion: Blood return from lumens, Position confirmed w/ CXR - Unfortunately the triple-lumen catheter traveled up the jugular vein. This was confirmed on x-ray. Because of this the catheter was removed. Dr. Gaffney placed a right internal jugular catheter subsequently. Number of attempts: 1
[2018-09-20] MEDS: SIMVASTATIN 40 MG TABLET PO SCH (22:54)
[2018-09-21] MEDS: INSULIN REG, HUMAN 100 UNIT/ML 3 ML VIAL (PYX) SUBCUT PRN ×2 (00:29→21:44)
[2018-09-21] MEDS: IPRATROPIUM/ALBUTEROL 0.5-2.5 MG/3 ML AMPUL NEB SCH ×2 (01:07→08:17)
[2018-09-21] MEDS ORDERED: FUROSEMIDE INJ/PF 20 MG/2 ML SDV ONE (04:28)
[2018-09-21] MEDS ORDERED: FUROSEMIDE INJ/PF 20 MG/2 ML SDV IV ONE (04:40)
[2018-09-21] MEDS: METHYLPREDNISOLONE INJ 40 MG/1 ML SDV IV SCH (05:16)
[2018-09-21] MEDS: LANSOPRAZOLE 30 MG TAB.RAP.DR PO SCH (05:16)
[2018-09-21] MEDS ORDERED: ERTAPENEM SODIUM INJ 1 GM VIAL ONE (05:24)
[2018-09-21] MEDS: ERTAPENEM SODIUM 1 GM in NORMAL SALINE 50 ML IV SCH (05:28)
[2018-09-21 05:39] LABS: ABSOLUTE MONOCYTES (AUTO) 0.7 10^3/uL (0.1-1.4); ABSOLUTE NEUT (AUTO) 11.1 10^3/uL (1.7-8.2); BASOPHILS % (AUTO) 0.1 % (0-2); HEMATOCRIT 29.5 % (37.9-51.0); HEMOGLOBIN 9.2 g/dL (13.5-17.0); MEAN CORPUSCULAR HGB CONC 31.4 g/dL (32.0-36.0); MEAN CORPUSCULAR VOLUME 77 fl (80-97); MONOCYTES % (AUTO) 5.7 % (3-13); PLATELET COUNT 151 10^3/uL (150-450); RED BLOOD COUNT 3.85 10^6/uL (4.35-5.55); RED CELL DISTRIBUTION WIDTH 16.3 % (11.5-14.0); SEGMENTED NEUTROPHILS % (AUTO) 86.2 % (42-78); TOTAL CELLS COUNTED % (AUTO) 100 %; WHITE BLOOD COUNT 12.9 10^3/uL (4.0-10.5)
[2018-09-21 05:50] LABS: ANION GAP 10 (5-19); BLOOD UREA NITROGEN 35 mg/dL (7-20); CALCIUM 8.1 mg/dL (8.4-10.2); CARBON DIOXIDE 22 mmol/L (22-30); CHLORIDE 112 mmol/L (98-107); POTASSIUM 4.2 mmol/L (3.6-5.0); SODIUM 144.1 mmol/L (137-145)
[2018-09-21 05:51] LABS: GLUCOSE 159 mg/dL (75-110)
[2018-09-21] MEDS: BUDESONIDE NEB 0.5 MG/2 ML AMPUL NEB SCH (08:16)
[2018-09-21] MEDS: LEVALBUTEROL HCL NEB 1.25 MG/3 ML AMPUL NEB PRN (08:16)
[2018-09-21] MEDS ORDERED: FUROSEMIDE INJ/PF 40 MG/4 ML SDV IV ONE (08:49)
--- NOTE | 2018-09-21 09:22 | PDOC PROGRESS REPORT ---
Subjective Progress Note for:: 09/21/18 Subjective:: The patient still does not feel any better. He reports a congested cough. He is still short of breath. He desaturates easily. He has been tachycardic but denies chest pain. Stool remains Hemoccult positive. Reason For Visit: PNEUMONIA Physical Exam Vital Signs: Temp Pulse Resp BP Pulse Ox 97.6 F 102 H 35 H 101/80 94 09/21/18 05:31 09/20/18 22:00 09/21/18 06:38 09/21/18 06:38 09/21/18 06:38 Pulse Oximeter Continuous Start: 09/19/18 17:08 Freq: RTQ4 Status: Complete Protocol: Document 09/20/18 12:00 LDA (Rec: 09/20/18 14:03 LDA [email or web address]) Pulse Oximetry Assessment Equipment Usage Equipment Discontinued Continuous SpO2 Machine # 13 Intake & Output 09/20/18 09/21/18 09/22/18 06:59 06:59 06:59 Intake Total 3250 685 Output Total 1070 Balance 3250 -385 Weight 95.5 kg 97.1 kg General appearance: PRESENT: cooperative, mild distress, well-developed Head exam: PRESENT: normocephalic Eye exam: PRESENT: conjunctiva pale Ear exam: PRESENT: normal external ear exam Mouth exam: PRESENT: moist, tongue midline Respiratory exam: PRESENT: rales, symmetrical. ABSENT: rhonchi, wheezes Cardiovascular exam: PRESENT: tachycardia GI/Abdominal exam: PRESENT: normal bowel sounds, soft. ABSENT: distended, tenderness Extremities exam: ABSENT: pedal edema Neurological exam: PRESENT: awake, oriented to person, oriented to place, oriented to time, oriented to situation Psychiatric exam: PRESENT: flat affect. ABSENT: agitated Results Laboratory Results: 09/21/18 05:25 09/21/18 05:25 09/21/18 09/21/18 09/21/18 05:25 05:25 05:25 WBC 12.9 H RBC 3.85 L Hgb 9.2 L Hct 29.5 L MCV 77 L MCH 24.0 L MCHC 31.4 L RDW 16.3 H Plt Count 151 Seg Neutrophils % 86.2 H Lymphocytes % 8.0 L Monocytes % 5.7 Eosinophils % 0.0 Basophils % 0.1 Absolute Neutrophils 11.1 H Absolute Lymphocytes 1.0 Absolute Monocytes 0.7 Absolute Eosinophils 0.0 Absolute Basophils 0.0 Sodium 144.1 Potassium 4.2 Chloride 112 H Carbon Dioxide 22 Anion Gap 10 BUN 35 H Creatinine 1.20 Est GFR ( Amer) > 60 Est GFR (Non-Af Amer) > 60 Glucose 159 H Calcium 8.1 L Albumin 3.0 L 09/19/18 18:10 Sputum Gram Stain - Final 09/19/18 18:10 Sputum Sputum Culture - Final Impressions: KUB X-Ray 09/19/18 09:45 IMPRESSION: NO RADIOGRAPHIC EVIDENCE FOR ACUTE ABDOMINAL DISEASE. Chest X-Ray 09/20/18 15:36 IMPRESSION: CENTRAL LINE DESCRIBED IN SATISFACTORY POSITION. NO PNEUMOTHORAX. NO CHANGE IN APPEARANCE OF THE CHEST. Assessment & Plan - Diagnosis (1) Gram-positive cocci bacteremia Is this a current diagnosis for this admission?: Yes Plan: Preliminary report shows gram-positive cocci in clusters. The patient has been started on vancomycin. His white count initially improved but is elevated again today. Am going to stop his systemic steroids as repeated x-rays show no evidence of pneumonia and he does not have a history of chronic obstructive pulmonary disease. (2) Respiratory failure with hypoxia Qualifiers: Chronicity: acute Qualified Code(s): J96.01 - Acute respiratory failure with hypoxia Is this a current diagnosis for this admission?: Yes Plan: No history of COPD. No history of congestive heart failure however he did receive copious fluids because of hypotension. He still requires supplemental oxygen and desaturates with minimal activity. (3) Tachycardia Is this a current diagnosis for this admission?: Yes Plan: Low-dose metoprolol has been added. We are going to assess his cardiac status as a possible etiology for his current condition. (4) Diabetes mellitus, type 2 Qualifiers: Diabetes mellitus penitentiary insulin use: without penitentiary use Diabetes mellitus complication status: without complication Qualified Code(s): E11.9 - Type 2 diabetes mellitus without complications Is this a current diagnosis for this admission?: Yes Plan: Still with glucose checks greater than 200. I have added 4 units of Lantus daily. Continue sliding scale. Adjust Lantus dose based on sliding scale requirements. (5) Blood in stool Is this a current diagnosis for this admission?: Yes Plan: Still with guaiac positive stool. There was a small greenish colored particulate matter present. We will monitor for the presence of this substance. Consider CT scan of the abdomen if clinically indicated. The patient's hemoglobin is 9.2 today. It was below 9 for 2 days likely due to hemodilution. (6) Anemia due to chronic blood loss Is this a current diagnosis for this admission?: Yes Plan: The patient's hemoglobin did drop but this coincided with aggressive fluid resuscitation. His IV fluids have stopped and his hemoglobin is beginning to drift up. He is above 9.0 today. (7) Hypertension Qualifiers: Hypertension type: essential hypertension Qualified Code(s): I10 - Essential (primary) hypertension Is this a current diagnosis for this admission?: Yes Plan: Remains on levo fed. I did resume low-dose losartan and added metoprolol due to his tachycardia and the possibility of the presence of congestive heart failure. He will be getting an echocardiogram today. (8) Hyperlipidemia Qualifiers: Hyperlipidemia type: unspecified Qualified Code(s): E78.5 - Hyperlipidemia, unspecified Is this a current diagnosis for this admission?: Yes Plan: Continue statin therapy (9) Gastroesophageal reflux disease Qualifiers: Esophagitis presence: esophagitis presence not specified Qualified Code(s): K21.9 - Gastro-esophageal reflux disease without esophagitis Is this a current diagnosis for this admission?: Yes Plan: Continue acid suppression with lansoprazole. (10) Cystitis Is this a current diagnosis for this admission?: Yes Plan: The patient's urine culture is no growth. Despite suggestion of cystitis on the initial urinalysis there is no evidence of cystitis. This is not a current clinical issue. - Time Time Spent with patient: 35 or more minutes Medications reviewed and adjusted accordingly: Yes
--- NOTE | 2018-09-21 09:29 | RADIOLOGY REPORT (SQ) ---
EXAM DESCRIPTION: CHEST SINGLE VIEW COMPLETED DATE/TIME: 09/21/2018 9:18 am REASON FOR STUDY: Worsening respiratory status COMPARISON: None. EXAM PARAMETERS: NUMBER OF VIEWS: One view. TECHNIQUE: Single frontal radiographic view of the chest acquired. RADIATION DOSE: NA LIMITATIONS: None. FINDINGS: LUNGS AND PLEURA: Increasing parenchymal opacities particular in the upper lobes bilateral . No effusions. MEDIASTINUM AND HILAR STRUCTURES: No masses. Contour normal. HEART AND VASCULAR STRUCTURES: Heart normal in size. Normal vasculature. BONES: No acute findings. HARDWARE: Venous access catheter unchanged. OTHER: No other significant finding. IMPRESSION: Worsening parenchymal opacities particular in upper lobes. Differential includes pneumo tiara, noncardiogenic pulmonary edema, allergic reaction TECHNICAL DOCUMENTATION: JOB ID: [id number] [employer]- All Rights Reserved Reading location - IP/workstation name: [email or web address]
[2018-09-21] MEDS: POLYETHYLENE GLYCOL 3350 POWDER 17 GM/1 PACKET PO SCH (09:47)
[2018-09-21 09:53] LABS: VENOUS BLOOD BASE EXCESS -3.7 mmol/L; VENOUS BLOOD HCO3 21.4 mmol/L (20-32); VENOUS BLOOD PCO2 39.1 mmHg (35-63); VENOUS BLOOD PH 7.36 (7.30-7.42)
[2018-09-21 10:24] LABS: TROPONIN I 0.118 ng/mL
[2018-09-21] MEDS: METOPROLOL TARTRATE 25 MG TABLET PO SCH ×2 (10:39→21:30)
[2018-09-21] MEDS: VANCOMYCIN HCL 1,250 MG in DEXTROSE 5%-WATER 250 ML IV SCH ×2 (10:39→21:30)
[2018-09-21] MEDS: GUAIFENESIN 600 MG TABLET.SA PO SCH ×2 (10:39→21:30)
[2018-09-21] MEDS: LOSARTAN POTASSIUM 25 MG TABLET PO SCH ×2 (10:39→21:30)
[2018-09-21] MEDS ORDERED: FUROSEMIDE INJ/PF 40 MG/4 ML SDV ONE (11:12)
--- NOTE | 2018-09-21 12:10 | EKG REPORT ---
SEVERITY:- BORDERLINE ECG - SINUS TACHYCARDIA BORDERLINE PROLONGED QT INTERVAL : Confirmed by: Issa Levin MD 21-Sep-2018 12:10:30
[2018-09-21] MEDS: ACETAMINOPHEN 325 MG TABLET PO PRN (14:29)
--- NOTE | 2018-09-21 20:00 | XCELERA REPORT ---
[address] [address] Transthoracic Echocardiogram Report Name: MINERVA MANUEL Age: 63 yrs Gender: Male : 1955 Patient Status: Inpatient Patient Location: ICU^603^A Study Date: 09/21/2018 10:46 AM Height: 68 in Weight: 214 lb BSA: 2.1 m2 Procedure: A two-dimensional transthoracic echocardiogram with color flow and Doppler was performed. The study was technically difficult with many images being suboptimal in quality. Reason For Study: Congestive heart failure. Assess left ventricular History: CHF. Ordering Physician: SOHA ENCISO Performed By: Mickey Meyer Interpretation Summary CHF The left ventricle is normal in size. There is normal left ventricular wall thickness. Left ventricular systolic function is normal. LV EF is > than 65% Doppler measurements suggest normal left ventricular diastolic function The left ventricular wall motion is normal. There is no thrombus. The right ventricle is not well visualized secondary to technical limitations Suspect mildly enlarged RV size. Right atrium not well visualized secondary to technical limitations Suspect mildly enlarged RA size. The left atrial size is normal. There is no evidence of mitral valve prolapse. There is no vegetation seen on the mitral valve. There is no mitral valve stenosis. There is a trace to mild amount of mitral regurgitation There is no aortic valve stenosis There is no LVOT obstruction. No aortic regurgitation is present. There is no tricuspid stenosis. There is a trace to mild amount of tricuspid regurgitation There is mild pulmonary hypertension by echo RVSP s 41 to 46 mm of Hg , with RA mean of 10. to 15. The pulmonic valve is not well visualized. There is no pulmonic valvular stenosis. There is no pulmonic valvular regurgitation. The inferior vena cava appeared normal and decreased < 50% with respiration (RAP 10-15 mmHg) The aortic root is normal size. There is no pericardial effusion. MMode/2D Measurements & Calculations RVDd: 2.7 cm LVIDd: 5.7 cm FS: 18.0 % Ao root diam: 3.2 cm IVSd: 0.68 cm LVIDs: 4.6 cm EDV(Teich): Ao root area: LVPWd: 0.94 cm 156.8 ml 7.8 cm2 ESV(Teich): 99.1 mlLA dimension: 3.4 cm EF(Teich): 36.8 % LVOT diam: 1.8 cm LVLd ap4: 8.2 cm SV(MOD-sp4): LVOT area: EDV(MOD-sp4): 36.0 ml 63.0 ml 2.5 cm2 LVLs ap4: 7.2 cm ESV(MOD-sp4): 27.0 ml EF(MOD-sp4): 57.1 % Doppler Measurements & Calculations MV E max caterina: MV P1/2t max caterina: Ao V2 max: LV V1 max P.5 cm/sec 167.5 cm/sec 107.6 cm/sec 4.1 mmHg MV A max caterina: MV P1/2t: 49.4 msec Ao max PG: LV V1 mean P.7 cm/sec MVA(P1/2t): 4.4 cm2 4.6 mmHg 2.3 mmHg MV E/A: 2.3 MV dec slope: Ao V2 mean: LV V1 max: 992.0 cm/sec2 61.4 cm/sec 101.8 cm/sec MV dec time: 0.17 sec Ao mean PG: LV V1 mean: 1.9 mmHg 69.7 cm/sec Ao V2 VTI: LV V1 VTI: 15.5 cm 14.5 cm CARI(I,D): 2.7 cm2 CARI(V,D): 2.4 cm2 MR max caterina: SV(LVOT): 39.2 ml PA V2 max: TR max caterina: 552.1 cm/sec 82.7 cm/sec 279.6 cm/sec MR max PG: PA max PG: TR max P.9 mmHg 2.7 mmHg 31.3 mmHg MV P1/2t-pr_phl: 49.4 msec Left Ventricle The left ventricle is normal in size. There is normal left ventricular wall thickness. Left ventricular systolic function is normal. LV EF is > than 65%. Doppler measurements suggest normal left ventricular diastolic function. The left ventricular wall motion is normal. There is no thrombus. Right Ventricle The right ventricle is not well visualized secondary to technical limitations. Suspect mildly enlarged RV size. Atria Right atrium not well visualized secondary to technical limitations. Suspect mildly enlarged RA size. The left atrial size is normal. Mitral Valve There is no evidence of mitral valve prolapse. There is no vegetation seen on the mitral valve. There is no mitral valve stenosis. There is a trace to mild amount of mitral regurgitation. Aortic Valve There is no aortic valve stenosis. There is no LVOT obstruction. No aortic regurgitation is present. Tricuspid Valve There is no tricuspid stenosis. There is a trace to mild amount of tricuspid regurgitation. There is mild pulmonary hypertension by echo. RVSP s 41 to 46 mm of Hg , with RA mean of 10. to 15. Pulmonic Valve The pulmonic valve is not well visualized. There is no pulmonic valvular stenosis. There is no pulmonic valvular regurgitation. Great Vessels The aortic root is normal size. The inferior vena cava appeared normal and decreased < 50% with respiration (RAP 10-15 mmHg). Effusions There is no pericardial effusion. : SOHA ENCISO > Callie Navas
[2018-09-21] MEDS: SIMVASTATIN 40 MG TABLET PO SCH (21:29)
[2018-09-21] MEDS ORDERED: INSULIN GLARGINE,HUM.REC.ANLOG 300 UNIT/3 ML INSULN.PEN SUBCUT SCH (22:00)
[2018-09-22] MEDS: LANSOPRAZOLE 30 MG TAB.RAP.DR PO SCH (05:43)
[2018-09-22] MEDS: ERTAPENEM SODIUM 1 GM in NORMAL SALINE 50 ML IV SCH (05:43)
[2018-09-22 05:55] LABS: ABSOLUTE BASOPHILS # (AUTO) 0.1 10^3/uL (0.0-0.2); ABSOLUTE LYMPHOCYTES (AUTO) 1.8 10^3/uL (0.5-4.7); ABSOLUTE MONOCYTES (AUTO) 0.8 10^3/uL (0.1-1.4); ABSOLUTE NEUT (AUTO) 10.8 10^3/uL (1.7-8.2); BASOPHILS % (AUTO) 0.4 % (0-2); EOSINOPHILS % (AUTO) 0.1 % (0-6); HEMATOCRIT 26.1 % (37.9-51.0); HEMOGLOBIN 8.4 g/dL (13.5-17.0); LYMPHOCYTES % (AUTO) 13.2 % (13-45); MEAN CORPUSCULAR HEMOGLOBIN 24.4 pg (27.0-33.4); MEAN CORPUSCULAR HGB CONC 32.3 g/dL (32.0-36.0); MEAN CORPUSCULAR VOLUME 76 fl (80-97); MONOCYTES % (AUTO) 6.1 % (3-13); PLATELET COUNT 175 10^3/uL (150-450); RED BLOOD COUNT 3.45 10^6/uL (4.35-5.55); RED CELL DISTRIBUTION WIDTH 16.3 % (11.5-14.0); SEGMENTED NEUTROPHILS % (AUTO) 80.2 % (42-78); TOTAL CELLS COUNTED % (AUTO) 100 %; WHITE BLOOD COUNT 13.5 10^3/uL (4.0-10.5)
[2018-09-22 06:10] LABS: ANION GAP 5 (5-19); BLOOD UREA NITROGEN 47 mg/dL (7-20); CARBON DIOXIDE 27 mmol/L (22-30); CHLORIDE 112 mmol/L (98-107); GLUCOSE 128 mg/dL (75-110); POTASSIUM 4.3 mmol/L (3.6-5.0)
[2018-09-22] MEDS ORDERED: METHYLPREDNISOLONE INJ 125 MG/2 ML SDV IV ONE (08:40)
--- NOTE | 2018-09-22 08:47 | PDOC PROGRESS REPORT ---
Subjective Progress Note for:: 09/22/18 Subjective:: Patient had a good day yesterday. Possibly last night. reports patient may be having hallucinations. Possibly sleep deprivation. Still with congested cough and he reports not feeling much better. Significant dyspnea with minimal exertion. Reason For Visit: PNEUMONIA Physical Exam Vital Signs: Temp Pulse Resp BP Pulse Ox 97.5 F 106 H 24 H 100/77 100 09/22/18 08:31 09/21/18 22:00 09/22/18 05:37 09/22/18 05:37 09/22/18 05:37 Pulse Oximeter Continuous Start: 09/19/18 17:08 Freq: RTQ4 Status: Complete Protocol: Document 09/20/18 12:00 LDA (Rec: 09/20/18 14:03 LDA [email or web address]) Pulse Oximetry Assessment Equipment Usage Equipment Discontinued Continuous SpO2 Machine # 13 Intake & Output 09/21/18 09/22/18 09/23/18 06:59 06:59 06:59 Intake Total 685 1555 50 Output Total 1070 1605 Balance -385 -50 50 Weight 97.1 kg 98.8 kg General appearance: PRESENT: cooperative, mild distress, well-developed, other - Ill appearing 63-year-old male Head exam: PRESENT: normocephalic Eye exam: PRESENT: conjunctiva pale Ear exam: PRESENT: normal external ear exam Mouth exam: PRESENT: moist, tongue midline Respiratory exam: PRESENT: symmetrical, tachypnea, wheezes - Expiratory wheezes bilaterally, other - Congested cough. ABSENT: accessory muscle use, rales, stridor Cardiovascular exam: PRESENT: RRR, +S1, +S2, tachycardia - Borderline GI/Abdominal exam: PRESENT: distended - Slightly, normal bowel sounds, soft. ABSENT: guarding, tenderness Rectal exam: PRESENT: deferred Extremities exam: ABSENT: pedal edema Musculoskeletal exam: PRESENT: normal inspection Neurological exam: PRESENT: awake, oriented to person, oriented to place, oriented to situation, CN II-XII grossly intact. ABSENT: alert - Still somewhat somnolent Psychiatric exam: PRESENT: flat affect. ABSENT: agitated, anxious Focused psych exam: ABSENT: restlessness Skin exam: PRESENT: dry, normal color, warm Results Laboratory Results: 09/22/18 05:48 09/22/18 05:48 0109/21/18 09/22/18 09:15 09:15 05:48 WBC RBC Hgb Hct MCV MCH MCHC RDW Plt Count Seg Neutrophils % Lymphocytes % Monocytes % Eosinophils % Basophils % Absolute Neutrophils Absolute Lymphocytes Absolute Monocytes Absolute Eosinophils Absolute Basophils VBG pH 7.36 VBG pCO2 39.1 VBG HCO3 21.4 VBG Base Excess -3.7 Sodium 144.0 Potassium 4.3 Chloride 112 H Carbon Dioxide 27 Anion Gap 5 BUN 47 H Creatinine 1.27 H Est GFR ( Amer) > 60 Est GFR (Non-Af Amer) 57 L Glucose 128 H Calcium 8.0 L Magnesium 2.6 H 3.1 H 09/22/18 05:48 WBC 13.5 H RBC 3.45 L Hgb 8.4 L Hct 26.1 L MCV 76 L MCH 24.4 L MCHC 32.3 RDW 16.3 H Plt Count 175 Seg Neutrophils % 80.2 H Lymphocytes % 13.2 Monocytes % 6.1 Eosinophils % 0.1 Basophils % 0.4 Absolute Neutrophils 10.8 H Absolute Lymphocytes 1.8 Absolute Monocytes 0.8 Absolute Eosinophils 0.0 Absolute Basophils 0.1 VBG pH VBG pCO2 VBG HCO3 VBG Base Excess Sodium Potassium Chloride Carbon Dioxide Anion Gap BUN Creatinine Est GFR ( Amer) Est GFR (Non-Af Amer) Glucose Calcium Magnesium 09/21/18 09/21/18 09/22/18 09:15 18:49 00:12 Troponin I 0.118 0.095 0.078 NT-Pro-B Natriuret Pep 5710 H Impressions: KUB X-Ray 09/19/18 09:45 IMPRESSION: NO RADIOGRAPHIC EVIDENCE FOR ACUTE ABDOMINAL DISEASE. Chest X-Ray 09/21/18 09:00 IMPRESSION: Worsening parenchymal opacities particular in upper lobes. Differential includes pneumonia, noncardiogenic pulmonary edema, allergic reaction Assessment & Plan - Diagnosis (1) Gram-positive cocci bacteremia Is this a current diagnosis for this admission?: Yes Plan: Awaiting final sensitivity results with identification from microbiology. Most likely staph aureus. Already on vancomycin. Etiology of infection (present on admission) still not known (2) Respiratory failure with hypoxia Qualifiers: Chronicity: acute Qualified Code(s): J96.01 - Acute respiratory failure with hypoxia Is this a current diagnosis for this admission?: Yes Plan: Still requiring oxygen supplementation. Will institute scheduled nebulizer treatments instead of as needed. He carries no diagnosis of COPD but has a 40+ year smoking history. Desaturation with minimal exertion. Pulmonary consult ordered. (3) Tachycardia Is this a current diagnosis for this admission?: Yes Plan: Improved with low-dose metoprolol. Consider using carvedilol to try and minimize the possible adverse respiratory effects. (4) Diabetes mellitus, type 2 Qualifiers: Diabetes mellitus termite inspector insulin use: without fci use Diabetes mellitus complication status: without complication Qualified Code(s): E11.9 - Type 2 diabetes mellitus without complications Is this a current diagnosis for this admission?: Yes Plan: Glucose readings still occasionally above 200. With the addition of steroids will increase the Lantus to 8 units. Adjust Lantus based on sliding scale requirements. (5) Blood in stool Is this a current diagnosis for this admission?: Yes Plan: Still Hemoccult positive. Hemoglobin is decreased again. Anemia studies ord ered. May benefit from transfusion. (6) Anemia due to chronic blood loss Is this a current diagnosis for this admission?: Yes Plan: As above. Monitor hemoglobin. (7) Hypertension Qualifiers: Hypertension type: essential hypertension Qualified Code(s): I10 - Essential (primary) hypertension Is this a current diagnosis for this admission?: Yes Plan: Improved on losartan and metoprolol. Adjust medications if clinically indicated. (8) Hyperlipidemia Qualifiers: Hyperlipidemia type: unspecified Qualified Code(s): E78.5 - Hyperlipidemia, unspecified Is this a current diagnosis for this admission?: Yes Plan: Continue statin therapy (9) Gastroesophageal reflux disease Qualifiers: Esophagitis presence: esophagitis presence not specified Qualified Code(s): K21.9 - Gastro-esophageal reflux disease without esophagitis Is this a current diagnosis for this admission?: Yes Plan: Continue acid suppression with lansoprazole. (10) Cystitis Is this a current diagnosis for this admission?: Yes - Time Time Spent with patient: 35 or more minutes Smoking Cessation Education: 3 to 10 minutes Medications reviewed and adjusted accordingly: Yes Anticipated discharge: Home
[2018-09-22] MEDS: POLYETHYLENE GLYCOL 3350 POWDER 17 GM/1 PACKET PO SCH (09:28)
[2018-09-22 09:31] LABS: ABSOLUTE RETICS # 0.034 10^6/uL (0.028-0.122); RETICULOCYTE COUNT (AUTO) 0.97 % (0.66-2.85)
[2018-09-22 09:44] LABS: IRON(TIBC) 73.3 ug/dL (49-181)
[2018-09-22] MEDS ORDERED: FUROSEMIDE INJ/PF 40 MG/4 ML SDV IV SCH ×2 (10:00)
--- NOTE | 2018-09-22 10:22 | RADIOLOGY REPORT (SQ) ---
EXAM DESCRIPTION: CHEST SINGLE VIEW COMPLETED DATE/TIME: 09/22/2018 9:58 am REASON FOR STUDY: Pneumonia/failure COMPARISON: 09/21/2018 EXAM PARAMETERS: NUMBER OF VIEWS: One view. TECHNIQUE: Single frontal radiographic view of the chest acquired. RADIATION DOSE: NA LIMITATIONS: None. FINDINGS: LUNGS AND PLEURA: Marked improvement in the parenchymal opacities in the lungs. Mild resi dual in the right upper lobe. MEDIASTINUM AND HILAR STRUCTURES: No masses. Contour normal. HEART AND VASCULAR STRUCTURES: Heart normal in size. Normal vasculature. BONES: No acute findings. HARDWARE: Venous access catheter unchanged. OTHER: No other significant finding. IMPRESSION: Significant improved aeration of the lungs. TECHNICAL DOCUMENTATION: JOB ID: [id number] [employer]- All Rights Reserved Reading location - IP/workstation name: [email or web address]
[2018-09-22] MEDS ORDERED: METHYLPREDNISOLONE INJ 125 MG/2 ML SDV ONE (10:45)
[2018-09-22] MEDS: METOPROLOL TARTRATE 25 MG TABLET PO SCH ×2 (10:51→21:35)
[2018-09-22] MEDS: LOSARTAN POTASSIUM 25 MG TABLET PO SCH ×2 (10:51→21:35)
[2018-09-22] MEDS: GUAIFENESIN 600 MG TABLET.SA PO SCH ×2 (10:51→21:35)
[2018-09-22] MEDS: VANCOMYCIN HCL 1,250 MG in DEXTROSE 5%-WATER 250 ML IV SCH ×2 (10:52→21:34)
[2018-09-22] MEDS: FUROSEMIDE INJ/PF 40 MG/4 ML SDV IV SCH ×2 (10:52→18:00)
[2018-09-22] MEDS ORDERED: ALTEPLASE INJ 2 MG VIAL (CATH CLEARANCE) IV ONE (12:24)
[2018-09-22] MEDS: IPRATROPIUM BROMIDE 0.02% NEB 0.5 MG/2.5 ML AMPUL NEB SCH ×2 (13:36→20:57)
[2018-09-22] MEDS: LEVALBUTEROL HCL NEB 1.25 MG/3 ML AMPUL NEB SCH ×2 (13:37→20:58)
[2018-09-22] MEDS: METHYLPREDNISOLONE INJ 40 MG/1 ML SDV IV SCH ×2 (14:32→21:35)
[2018-09-22 17:29] LABS: ANION GAP 6 (5-19); BLOOD UREA NITROGEN 43 mg/dL (7-20); CARBON DIOXIDE 25 mmol/L (22-30); CHLORIDE 108 mmol/L (98-107); GLUCOSE 266 mg/dL (75-110); POTASSIUM 4.4 mmol/L (3.6-5.0); SODIUM 139.2 mmol/L (137-145)
[2018-09-22] MEDS: INSULIN REG, HUMAN 100 UNIT/ML 3 ML VIAL (PYX) SUBCUT PRN ×2 (18:31→21:54)
[2018-09-22] MEDS: BUDESONIDE NEB 0.5 MG/2 ML AMPUL NEB SCH (20:58)
[2018-09-22] MEDS: SIMVASTATIN 40 MG TABLET PO SCH (21:35)
[2018-09-22 21:53] LABS: VANCOMYCIN,TROUGH 18.3 ug/mL (5.0-20.0)
[2018-09-22] MEDS: ACETAMINOPHEN 325 MG TABLET PO PRN (21:53)
[2018-09-22] MEDS ORDERED: INSULIN GLARGINE,HUM.REC.ANLOG 300 UNIT/3 ML INSULN.PEN SUBCUT SCH (22:00)
[2018-09-22 23:07] LABS: ABSOLUTE LYMPHOCYTES (AUTO) 1.1 10^3/uL (0.5-4.7); ABSOLUTE MONOCYTES (AUTO) 0.7 10^3/uL (0.1-1.4); ABSOLUTE NEUT (AUTO) 10.8 10^3/uL (1.7-8.2); BASOPHILS % (AUTO) 0.3 % (0-2); HEMATOCRIT 32.1 % (37.9-51.0); LYMPHOCYTES % (AUTO) 8.9 % (13-45); MEAN CORPUSCULAR HEMOGLOBIN 25.7 pg (27.0-33.4); MEAN CORPUSCULAR HGB CONC 32.7 g/dL (32.0-36.0); MEAN CORPUSCULAR VOLUME 79 fl (80-97); MONOCYTES % (AUTO) 5.5 % (3-13); PLATELET COUNT 169 10^3/uL (150-450); RED BLOOD COUNT 4.08 10^6/uL (4.35-5.55); RED CELL DISTRIBUTION WIDTH 17.7 % (11.5-14.0); SEGMENTED NEUTROPHILS % (AUTO) 85.3 % (42-78); TOTAL CELLS COUNTED % (AUTO) 100 %; WHITE BLOOD COUNT 12.7 10^3/uL (4.0-10.5)
[2018-09-22 23:13] LABS: HEMOGLOBIN 10.5 g/dL (13.5-17.0)
[2018-09-23] MEDS: LEVALBUTEROL HCL NEB 1.25 MG/3 ML AMPUL NEB SCH ×2 (01:44→07:56)
[2018-09-23] MEDS: IPRATROPIUM BROMIDE 0.02% NEB 0.5 MG/2.5 ML AMPUL NEB SCH ×4 (01:46→20:13)
[2018-09-23] MEDS ORDERED: ACETYLCYSTEINE 20% SOLN 6000 MG/30 ML VIAL PO ONE (06:36)
[2018-09-23] MEDS: ERTAPENEM SODIUM 1 GM in NORMAL SALINE 50 ML IV SCH (06:43)
[2018-09-23] MEDS: LANSOPRAZOLE 30 MG TAB.RAP.DR PO SCH (06:43)
[2018-09-23] MEDS: METHYLPREDNISOLONE INJ 40 MG/1 ML SDV IV SCH (06:43)
[2018-09-23 07:23] LABS: ALBUMIN 2.8 g/dL (3.5-5.0); PHOSPHORUS 4.1 mg/dL (2.5-4.5)
[2018-09-23] MEDS: BUDESONIDE NEB 0.5 MG/2 ML AMPUL NEB SCH ×2 (07:55→20:13)
--- NOTE | 2018-09-23 08:24 | RADIOLOGY REPORT (SQ) ---
EXAM DESCRIPTION: CHEST SINGLE VIEW COMPLETED DATE/TIME: 09/23/2018 6:46 am REASON FOR STUDY: Pneumonia/failure COMPARISON: 09/22/2018 EXAM PARAMETERS: NUMBER OF VIEWS: One view. TECHNIQUE: Single frontal radiographic view of the chest acquired. RADIATION DOSE: NA LIMITATIONS: None. FINDINGS: LUNGS AND PLEURA: Almost complete interval resolution of the mild residual opacity in the right upper lobe. Minimal residual remains. The left lung is stable in appearance. No pneumothora x or pleural effusion. MEDIASTINUM AND HILAR STRUCTURES: No masses. Contour normal. HEART AND VASCULAR STRUCTURES: Heart normal in size. Normal vasculature. BONES: No acute findings. HARDWARE: Right venous access catheter, ucnhanged finding. OTHER: No other significant finding. IMPRESSION: 1. Almost complete interval resolution of the right upper lobe opacity. Minimal residu al remains. TECHNICAL DOCUMENTATION: JOB ID: [id number] [employer]- All Rights Reserved Reading location - IP/workstation name: [email or web address]
[2018-09-23] MEDS ORDERED: ACETYLCYSTEINE 20% SOLN 800 MG/4 ML VIAL.NEB PO ONE (08:30)
--- NOTE | 2018-09-23 09:31 | PDOC PROGRESS REPORT ---
Subjective Progress Note for:: 09/23/18 Subjective:: The patient is resting in bed currently receiving nebulizer therapy. He appears comfortable. He is breathing seems to be easier. Reason For Visit: PNEUMONIA Physical Exam Vital Signs: Temp Pulse Resp BP Pulse Ox 98.8 F 108 H 20 81/71 L 99 09/23/18 08:00 09/23/18 08:00 09/23/18 08:00 09/23/18 08:00 09/23/18 08:00 Pulse Oximeter Continuous Start: 09/19/18 17:08 Freq: RTQ4 Status: Complete Protocol: Document 09/20/18 12:00 LDA (Rec: 09/20/18 14:03 LDA [email or web address]) Pulse Oximetry Assessment Equipment Usage Equipment Discontinued Continuous SpO2 Machine # 13 Intake & Output 09/22/18 09/23/18 09/24/18 06:59 06:59 06:59 Intake Total 1555 2290 Output Total 1605 3260 Balance -50 -970 Weight 98.8 kg 96.8 kg General appearance: PRESENT: no acute distress, cooperative, well-developed Head exam: PRESENT: normocephalic Mouth exam: PRESENT: other - Did not assess. On nebulizer treatment. Neck exam: PRESENT: other - Central line right internal jugular vein Respiratory exam: PRESENT: clear to auscultation cleve, symmetrical, unlabored. ABSENT: accessory muscle use, chest wall tenderness, prolonged expiratory phas, rales, rhonchi, wheezes Cardiovascular exam: PRESENT: RRR, +S1, +S2, tachycardia - Borderline GI/Abdominal exam: PRESENT: soft. ABSENT: distended, guarding, tenderness Rectal exam: PRESENT: deferred Extremities exam: ABSENT: pedal edema Neurological exam: PRESENT: alert, awake, oriented to person, oriented to place, oriented to time, oriented to situation, CN II-XII grossly intact Psychiatric exam: PRESENT: flat affect. ABSENT: agitated, anxious Focused psych exam: ABSENT: restlessness Results Laboratory Results: 09/22/18 22:42 09/22/18 14:53 09/22/18 09/22/18 09/22/18 05:48 05:48 12:53 WBC RBC Hgb Hct MCV MCH MCHC RDW Plt Count Seg Neutrophils % Lymphocytes % Monocytes % Eosinophils % Basophils % Absolute Neutrophils Absolute Lymphocytes Absolute Monocytes Absolute Eosinophils Absolute Basophils Retic Count (auto) 0.97 Absolute Retic 0.034 Sodium Potassium Chloride Carbon Dioxide Anion Gap BUN Creatinine Est GFR ( Amer) Est GFR (Non-Af Amer) Glucose Calcium Phosphorus Iron 73.3 TIBC 305 % Saturation 24 Ferritin 230.00 Albumin Vitamin B12 443.0 Folate 11.90 Blood Type O POSITIVE Antibody Screen NEGATIVE 09/22/18 09/22/18 09/23/18 14:53 22:42 06:45 WBC 12.7 H RBC 4.08 L Hgb 10.5 L D Hct 32.1 L MCV 79 L MCH 25.7 L MCHC 32.7 RDW 17.7 H Plt Count 169 Seg Neutrophils % 85.3 H Lymphocytes % 8.9 L Monocytes % 5.5 Eosinophils % 0.0 Basophils % 0.3 Absolute Neutrophils 10.8 H Absolute Lymphocytes 1.1 Absolute Monocytes 0.7 Absolute Eosinophils 0.0 Absolute Basophils 0.0 Retic Count (auto) Absolute Retic Sodium 139.2 Potassium 4.4 Chloride 108 H Carbon Dioxide 25 Anion Gap 6 BUN 43 H Creatinine 1.18 Est GFR ( Amer) > 60 Est GFR (Non-Af Amer) > 60 Glucose 266 H Calcium 8.0 L Phosphorus 4.1 Iron TIBC % Saturation Ferritin Albumin 2.8 L Vitamin B12 Folate Blood Type Antibody Screen 09/19/18 12:15 Blood Blood Culture - Final Aerococcus Urinae 09/19/18 10:30 Blood Blood Culture - Final Aerococcus Urinae 09/19/18 12:00 Clean Catch Midstream Urine Culture - Final Aerococcus Urinae 09/21/18 09/21/18 09/22/18 09:15 18:49 00:12 Troponin I 0.118 0.095 0.078 NT-Pro-B Natriuret Pep 5710 H 09/22/18 05:48 Troponin I NT-Pro-B Natriuret Pep 7100 H Impressions: KUB X-Ray 09/19/18 09:45 IMPRESSION: NO RADIOGRAPHIC EVIDENCE FOR ACUTE ABDOMINAL DISEASE. Chest X-Ray 09/23/18 08:15 IMPRESSION: 1. Almost complete interval resolution of the right upper lobe opacity. Minimal residual remains. Assessment & Plan - Diagnosis (1) Gram-positive cocci bacteremia Is this a current diagnosis for this admission?: Yes Plan: Urine and blood cultures are now consistent and positive for Aerococcus species. I was unable to find any significant literature but I did see several documented cases. 1 or 2 cases of endocarditis were noted. Other possible complications would be discitis and prostatitis. Sensitivities were not performed. I will continue vancomycin at this time. I did place an infectious disease consult and expect to discuss with Dr. Brasher when she has a chance to review the case. I will hold off on changing antibiotic therapy until then. (2) Respiratory failure with hypoxia Qualifiers: Chronicity: acute Qualified Code(s): J96.01 - Acute respiratory failure with hypoxia Is this a current diagnosis for this admission?: Yes Plan: Still requiring supplemental oxygen. Currently receiving nebulizer therapy for the possibility of COPD. (3) Tachycardia Is this a current diagnosis for this admission?: Yes Plan: Tachycardia is now intermittent. Continue metoprolol. The patient was receiving nebulizer therapy and we were discussing his case and the need for more testing. This certainly could have instigated tachycardia. (4) Diabetes mellitus, type 2 Qualifiers: Diabetes mellitus extermination inspector insulin use: without nursing home use Diabetes mellitus complication status: without complication Qualified Code(s): E11.9 - Type 2 diabetes mellitus without complications Is this a current diagnosis for this admission?: Yes Plan: Serum glucose is still mostly over 200. I will increase the Lantus. I have changed to Humalog sliding scale. This changes most likely due to steroid therapy. We will continue to monitor. Adjust insulin based on sliding scale requirements. (5) Blood in stool Is this a current diagnosis for this admission?: Yes Plan: Still Hemoccult positive. Patient did receive 2 units of packed red blood cells. Hemoglobin is now greater than 10. We will continue to monitor. Based on CT angiogram results will determine if patient needs a colonoscopy urgently to assess and address the source of blood if anticoagulation is required. (6) Anemia due to chronic blood loss Is this a current diagnosis for this admission?: Yes Plan: Hemoglobin is now greater than 2:10 units of packed red blood cells. Continue t o monitor. (7) Hypertension Qualifiers: Hypertension type: essential hypertension Qualified Code(s): I10 - Essential (primary) hypertension Is this a current diagnosis for this admission?: Yes Plan: The patient is currently off of levo fed. We will decrease the losartan and put parameters on his medications. We will try and avoid resuming Levophed if possible. (8) Hyperlipidemia Qualifiers: Hyperlipidemia type: unspecified Qualified Code(s): E78.5 - Hyperlipidemia, unspecified Is this a current diagnosis for this admission?: Yes Plan: Continue simvastatin therapy (9) Gastroesophageal reflux disease Qualifiers: Esophagitis presence: esophagitis presence not specified Qualified Code(s): K21.9 - Gastro-esophageal reflux disease without esophagitis Is this a current diagnosis for this admission?: Yes Plan: Continue lansoprazole (10) Cystitis Is this a current diagnosis for this admission?: Yes Plan: Enterococcus identified as noted above. 2 sets of blood cultures positive as well. Infectious diseases consulted. - Time Time Spent with patient: 35 or more minutes Medications reviewed and adjusted accordingly: Yes Anticipated discharge: Home
--- NOTE | 2018-09-23 09:36 | RADIOLOGY REPORT (SQ) ---
EXAM DESCRIPTION: CTA CHEST COMPLETED DATE/TIME: 09/23/2018 8:50 am REASON FOR STUDY: Rule out PE, Elevated D-dimer shortness of breath, chest pain COMPARISON: Chest films 07/20/2019 through 07/24/2019 TECHNIQUE: CT scan of the chest performed using helical scanning technique with dynamic intravenous contrast injection. Images reviewed with lung, soft tissue and bone windows. Reconstructed coronal and sagittal MPR images reviewed. Additional 3 dimensional post-processing performed to develop Maximal Intensity Projection images (RI P). All images stored on PACS. All CT scanners at this facility use dose modulation, iterative reconstruction, and/or weight based d osing when appropriate to reduce radiation dose to as low as reasonably achievable (ALARA). [facility]: Dose Right [facility]: CareDose [facility]: Dose Right [facility]: Teradose 4D [facility]: M-KOPA CONTRAST TYPE AND DOSE: contrast/concentration: Isovue 350.00 mg/ml; Total Contrast Delivered: 77.0 ml; Total Saline Delivered: 91.0 ml Contrast bolus optimized for the pulmonary arteries. Not diagnostic for the aorta. RENAL FUNCTION: Creatinine 1.2 RADIATION DOSE: CT Rad equipment meets quality standard of care and radiation dose reduction techniq ues were employed. CTDIvol: 9.4 - 15.2 mGy. DLP: 600 mGy-cm. . LIMITATIONS: None. FINDINGS: LUNGS AND PLEURA: There is mild persistent alveolar and interstitial edema on today's stud y, less prominent than on plain films from 09/20/2018. Trace pleural fluid persists. No pneumothorax. AORTA AND GREAT VESSELS: No aneurysm. Contrast bolus not optimized for the aorta. HEART: No pericardial effusion. No significant coronary artery calcifications. PULMONARY ARTERIES: No emboli visualized in the main pulmonary arteries or the segmental branches. HILAR AND MEDIASTINAL STRUCTURES: No identified masses or abnormal nodes. HARDWARE: Right jugular central line tip superior vena cava UPPER ABDOMEN: No significant findings. Limited exam. THYROID AND OTHER SOFT TISSUES: No masses. No adenopathy. BONES: No acute or significant finding. 3D MIPS: Confirm above findings. OTHER: No other significant finding. IMPRESSION: Mild persistent alveolar and interstitial pulmonary edema with trace pleural fluid. No CT angio evidence of acute pulmonary emboli. COMMENT: Quality ID # [id number]: Final reports with documentation of one or more dose reduction techniques (e.g., Automated exposure control, adjustment of the mA and/or kV according to patient size, use of iterative reconstruction technique) TECHNICAL DOCUMENTATION: JOB ID: [id number] [employer]- All Rights Reserved Reading location - IP/workstation name: [email or web address]
[2018-09-23] MEDS: POLYETHYLENE GLYCOL 3350 POWDER 17 GM/1 PACKET PO SCH (09:40)
[2018-09-23] MEDS: VANCOMYCIN HCL 1,250 MG in DEXTROSE 5%-WATER 250 ML IV SCH ×2 (09:47→22:16)
[2018-09-23] MEDS: GUAIFENESIN 600 MG TABLET.SA PO SCH ×2 (09:48→22:05)
[2018-09-23] MEDS: FUROSEMIDE INJ/PF 40 MG/4 ML SDV IV SCH ×2 (09:48→18:40)
[2018-09-23] MEDS: INSULIN LISPRO 100 UNIT/ML 3 ML VIAL SUBCUT PRN ×3 (10:17→22:06)
[2018-09-23] MEDS: METOPROLOL TARTRATE 25 MG TABLET PO SCH ×2 (10:17→22:05)
[2018-09-23 12:57] LABS: ABSOLUTE LYMPHOCYTES (AUTO) 1.4 10^3/uL (0.5-4.7); ABSOLUTE MONOCYTES (AUTO) 0.6 10^3/uL (0.1-1.4); ABSOLUTE NEUT (AUTO) 11.3 10^3/uL (1.7-8.2); BASOPHILS % (AUTO) 0.3 % (0-2); HEMATOCRIT 31.2 % (37.9-51.0); HEMOGLOBIN 10.2 g/dL (13.5-17.0); LYMPHOCYTES % (AUTO) 10.7 % (13-45); MEAN CORPUSCULAR HEMOGLOBIN 25.4 pg (27.0-33.4); MEAN CORPUSCULAR HGB CONC 32.5 g/dL (32.0-36.0); MEAN CORPUSCULAR VOLUME 78 fl (80-97); MONOCYTES % (AUTO) 4.6 % (3-13); PLATELET COUNT 174 10^3/uL (150-450); RED CELL DISTRIBUTION WIDTH 16.9 % (11.5-14.0); SEGMENTED NEUTROPHILS % (AUTO) 84.4 % (42-78); TOTAL CELLS COUNTED % (AUTO) 100 %; WHITE BLOOD COUNT 13.4 10^3/uL (4.0-10.5)
[2018-09-23 13:10] LABS: ANION GAP 7 (5-19); BLOOD UREA NITROGEN 40 mg/dL (7-20); CARBON DIOXIDE 26 mmol/L (22-30); CHLORIDE 107 mmol/L (98-107); GLUCOSE 253 mg/dL (75-110); POTASSIUM 4.2 mmol/L (3.6-5.0); SODIUM 140.1 mmol/L (137-145)
[2018-09-23] MEDS: LEVALBUTEROL HCL NEB 1.25 MG/3 ML AMPUL NEB PRN (14:04)
[2018-09-23] MEDS: ACETYLCYSTEINE 20% SOLN 6000 MG/30 ML VIAL PO SCH (20:00)
[2018-09-23] MEDS ORDERED: INSULIN GLARGINE,HUM.REC.ANLOG 300 UNIT/3 ML INSULN.PEN SUBCUT SCH (22:00)
[2018-09-23] MEDS: SIMVASTATIN 40 MG TABLET PO SCH (22:03)
[2018-09-23] MEDS: LOSARTAN POTASSIUM 25 MG TABLET PO SCH (22:04)
[2018-09-23] MEDS: INSULIN GLARGINE,HUM.REC.ANLOG 300 UNIT/3 ML INSULN.PEN SUBCUT SCH (22:06)
[2018-09-24] MEDS: LEVALBUTEROL HCL NEB 1.25 MG/3 ML AMPUL NEB PRN ×3 (02:49→19:24)
[2018-09-24] MEDS: IPRATROPIUM BROMIDE 0.02% NEB 0.5 MG/2.5 ML AMPUL NEB SCH ×4 (02:49→19:24)
[2018-09-24] MEDS: ERTAPENEM SODIUM 1 GM in NORMAL SALINE 50 ML IV SCH (06:21)
[2018-09-24] MEDS: LANSOPRAZOLE 30 MG TAB.RAP.DR PO SCH (06:27)
--- NOTE | 2018-09-24 06:45 | RADIOLOGY REPORT (SQ) ---
EXAM DESCRIPTION: XR CHEST 1 VIEW COMPLETED DATE/TME: 09/24/2018 06:00 CLINICAL HISTORY: 63 years Male, pna/chf COMPARISON: One day prior. NUMBER OF VIEWS/TECHNIQUE: 1/AP FINDINGS: Pulmonary vascular congestion.Adequate appearing right jugular central line. Normal cardiac silhouette size. No pneumothorax. Stable bony thorax. IMPRESSION: No significant change.
[2018-09-24 07:30] LABS: ARTERIAL BLOOD BASE EXCESS 3.5 mmol/L; ARTERIAL BLOOD H2CO3 1.18 mmol/L (1.05-1.35); ARTERIAL BLOOD HCO3 27.4 mmol/L (20-24); ARTERIAL BLOOD O2 SATURATION 93.7 % (94-98); ARTERIAL BLOOD PCO2 39.3 mmHg (35-45); ARTERIAL BLOOD PH 7.46 (7.35-7.45); ARTERIAL BLOOD PO2 64.6 mmHg (80-100); ARTERIAL BLOOD TOTAL CO2 28.7 mmol/L (23-27)
[2018-09-24 07:40] LABS: ARTERIAL BLOOD FIO2 2L
[2018-09-24 07:50] LABS: ANION GAP 6 (5-19); BLOOD UREA NITROGEN 30 mg/dL (7-20); CALCIUM 8.1 mg/dL (8.4-10.2); CARBON DIOXIDE 30 mmol/L (22-30); CHLORIDE 106 mmol/L (98-107); GLUCOSE 120 mg/dL (75-110); POTASSIUM 3.8 mmol/L (3.6-5.0)
[2018-09-24] MEDS: BUDESONIDE NEB 0.5 MG/2 ML AMPUL NEB SCH ×2 (08:09→19:24)
--- NOTE | 2018-09-24 08:42 | RADIOLOGY REPORT (SQ) ---
EXAM DESCRIPTION: U/S RETROPERITON LTD COMPLETED DATE/TIME: 09/24/2018 6:47 am REASON FOR STUDY: Assess for abscess obstruction COMPARISON: None. TECHNIQUE: Dynamic and static grayscale images acquired of the kidneys and bladder and recorded on P ACS. Additional selected color Doppler and spectral images recorded. LIMITATIONS: None. FINDINGS: RIGHT KIDNEY: The right kidney demonstrates normal echogenicity measuring 10.2 cm in maribell th x 5.2 cm in AP diameterx 5.2 cm in transverse diameter. No hydronephrosis. Doppler flow noted. LEFT KIDNEY: The left kidney demonstrates normal echogenicity measuring 12.1 cm in length x 6 cm in AP diameter x 4.6 cm in transverse diameter. No hydronephrosis. Normal Doppler flow. Changes of a dromedary hump of the left kidney noted. BLADDER: The urinary bladder is decompressed. The urinary bladder demonstrates a thickened wall whic h could be due to incomplete distension. Left ureteral jet visualized. IMPRESSION: Normal bilateral renal ultrasound. TECHNICAL DOCUMENTATION: JOB ID: [id number] 2010 [employer]- All Rights Reserved Reading location - IP/workstation name: [email or web address]
[2018-09-24] MEDS: ACETYLCYSTEINE 20% SOLN 6000 MG/30 ML VIAL PO SCH ×2 (10:45→14:33)
[2018-09-24] MEDS: METOPROLOL TARTRATE 25 MG TABLET PO SCH ×2 (10:57→22:37)
[2018-09-24] MEDS: FUROSEMIDE INJ/PF 40 MG/4 ML SDV IV SCH ×2 (10:57→18:27)
[2018-09-24] MEDS: POLYETHYLENE GLYCOL 3350 POWDER 17 GM/1 PACKET PO SCH (10:57)
[2018-09-24] MEDS: GUAIFENESIN 600 MG TABLET.SA PO SCH ×2 (10:57→22:38)
[2018-09-24] MEDS: VANCOMYCIN HCL 1,250 MG in DEXTROSE 5%-WATER 250 ML IV SCH (10:58)
--- NOTE | 2018-09-24 13:55 | Progress Note ---
Provider Note Provider Note: ID Consult Note Asked to review patient's chart by Dr Schulte and discussed case briefly with him on 09/23/18. Pt not seen or examined. Reviewed VS, imaging reports, labs, provider reports. Mr. Varghese is a 63 year old man with PMH including DM, HTN, and HLD who presented to the ED on 09/19/18 with increased SOB, cough and profound weakness. He reported feeling poorly over the past several weeks, progressively worsening, with intermittent symptoms resembling a URI (generalized body aches, malaise and largely dry cough); over the past 2-3 days he developed fever, shaking chills, anorexia, and fatigue. No urinary symptoms reported. He had tachypnea, tachycardia, fever up to 103 F initially, with hypotension refractory to IVF and required vasopressor support briefly. Congested breath sounds noted on exam initially but otherwise exam was unremarkable. Initial labs included leukocytosis WBC 12.6, microcytic anemia, elevated creatinine 1.5 and NT-Pro-BNP 5700. U/A had large amount of leukocyte esterase, 48 wbc/hpf, and UCx grew 40k- 50k cfu Aerococcus urinae. Blood cultures 2 hours apart at different sites both grew Aerococcus urinae from all bottles. Imaging included: CXR read as showing no acute radiographic finding in the chest. TTE on 09/21 did not reveal a vegetation on MV or AoV, no AR, and only mild MR, but the study was technically difficult with many images suboptimal in quality. Chest CTA on 09/23 showed mild persistent alveolar and interstitial edema but no PE. Most recently, pt had some some mild leukocytosis, but he has been afebrile. Cr has improved to 1.2. Renal US did not show evidence of obstruction. For diuresis, he has been getting furosemide. Impression/Recommendations This is an unusual case of sepsis due to true Aerococcus urinae bacteremia, possibly secondary to a complicated urinary tract infection ( prostatitis? obstruction?), but endocarditis should be ruled out. Aerococcus species are frequent blood culture contaminants (e.g. growth from a single blood culture bottle drawn emergently or otherwise under suboptimal conditions). However, in this patient's case, there is a sustained high grade bacteremia with this organism. This is a true or real invasive infection. - Recommend discontinuing IV vancomycin and IV ertapenem. - Most isolates reported in the literature are highly sensitive to penicillin, and IV penicillin would be a safer choice than IV vancomycin while concurrently diuresing pt. Recommend starting 18 million units of IV penicillin G as a continuous infusion over 24h (or given in divided doses every 4-6h). Contact Pharmacy regarding the continuous infusion order. - Aerococcus species are typically fairly low virulence organisms, and - if this is all due to a urinary source - some complicating factor may be contributing to the severity of the patient's presentation. If not already done, recommend performing a prostate exam to evaluate whether pt has a tender boggy prostate suggesting prostatitis - Recommend repeat blood cultures to demonstrate that this has the bacteremia has cleared - Recommend pursuing MARCELLE. Infective endocarditis is a consideration. Pt's reported subacute duration of nonspecific symptoms in the preceding >2-3 weeks, and up to 1/3rd of cases of IE accompanying bacteremia reported in case series in the literature with this organism, although the quality of this literature is limited. TTE was suboptimal. Armin Brasher MD [facility] pager [phone]
--- NOTE | 2018-09-24 14:47 | PDOC CONSULTATION ---
Consultation Consult Date: 09/22/18 Attending physician:: SOHA ENCISO Consult reason:: dyspnea History of Present Illness Admission Date/PCP: 09/19/18 16:03 KATERINE NIEVES PA-C History of Present Illness: MINERVA MANUEL is a 63 year old male; admitted to the hospital after 2-3 weeks of waxing and waning symptoms of cough arthralgias fevers and chills cough was initially productive of yellow phlegm he states now he is coughing up clear white phlegm he denies any hemoptysis his PPD was negative the dates unknown no history of chronic lung disease as a child or adolescent. Admits to exposure to large amounts of passive smoke as a child as well as an adult. 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 He has 1 dog lives outside travel he denies angina-like chest pain sleeps on 2 pillows no PND rare nocturnal cough no edema he admits to snoring restless sleep nocturia 2-3 times per night unrestful sleep and excessive daytime somnolence. Past Medical History Cardiac Medical History: Reports: Hyperlipidema, Hypertension Pulmonary Medical History: Reports: None EENT Medical History: Reports: None Neurological Medical History: Reports: None Endocrine Medical History: Reports: Diabetes Mellitus Type 2 Renal/ Medical History: Reports: None Malignancy Medical History: Reports: None GI Medical History: Reports: Gastroesophageal Reflux Disease Musculoskeltal Medical History: Reports: None Skin Medical History: Reports: None Psychiatric Medical History: Reports: Tobacco Dependency Traumatic Medical History: Reports: None Hematology: Reports: Anemia Infectious Medical History: Reports: None Past Surgical History Past Surgical History: Reports: None Social History Information Source: [facility] Records 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 Lives with: Family Smoking Status: Current Every Day Smoker Cigarettes Packs Per Day: 1 Number of Years Smokin Passive smoke exposure as: Both Frequency of Alcohol Use: Occasional Hx Recreational Drug Use: No Drugs: None Hx Prescription Drug Abuse: No Do you have pets?: Yes Have you had any respiratory illnesses as a child?: No Have you been exposed to any sick contacts recently?: No Have you had any recent respiratory illnesses?: Yes Have you travelled outside of [place] in the past 12 months?: No - Advance Directive Resuscitation Status: Full Code Family History Family History: CAD, Hypertension, Malignancy Parental Family History Reviewed: Yes Children Family History Reviewed: Yes Sibling(s) Family History Reviewed.: Yes Medication/Allergy Home Medications: Cetirizine HCl [Zyrtec 10 mg Tablet] 10 mg PO DAILY 09/19/18 Folic Acid [Folvite 1 mg Tablet] 1 mg PO DAILY 09/19/18 Losartan Potassium [Cozaar 50 mg Tablet] 50 mg PO DAILY 09/19/18 Metformin HCl [Glucophage 500 mg Tablet] 1,000 mg PO BIDBS 09/19/18 Omeprazole 20 mg PO DAILY 09/19/18 Simvastatin [Zocor 40 mg Tablet] 40 mg PO QHS 09/19/18 Allergies/Adverse Reactions: No Known Allergies Allergy (Unverified 09/19/18 09:13) Review of Systems Constitutional: PRESENT: anorexia, chills, fatigue, fever(s). ABSENT: headache(s), night sweats, weight gain, weight loss Eyes: ABSENT: visual disturbances Ears: ABSENT: hearing changes Nose, Mouth, and Throat: ABSENT: mouth pain Cardiovascular: PRESENT: dyspnea on exertion, palpitations. ABSENT: orthropnea Respiratory: PRESENT: cough, dyspnea, sputum - [address]. ABSENT: hemoptysis Gastrointestinal: ABSENT: abdominal pain, bloating, coffee ground emesis, hematemesis, hematochezia, melena Genitourinary: PRESENT: nocturia. ABSENT: dysuria, hematuria Neurological: ABSENT: abnormal gait, abnormal movements, abnormal speech, confusion, focal weakness, frequent falls, lack of coordination, memory loss, numbness Psychiatric: ABSENT: hallucinations, homidical ideation, suicidal ideation - 69285 Hematologic/Lymphatic: ABSENT: easy bruising Allergic/Immunologic: ABSENT: seasonal rhinorrhea - 79510 Physical Exam Vital Signs: Temp Pulse Resp BP Pulse Ox 97.9 F 106 H 24 H 100/77 100 09/22/18 10:00 09/21/18 22:00 09/22/18 05:37 09/22/18 05:37 09/22/18 05:37 Pulse Oximeter Continuous Start: 09/19/18 17 :08 Freq: RTQ4 Status: Complete Protocol: Document 09/20/18 12:00 LDA (Rec: 09/20/18 14:03 [facility] [id number]) Pulse Oximetry Assessment Equipment Usage Equipment Discontinued Continuous SpO2 Machine # 13 Intake & Output 09/21/18 09/22/18 09/23/18 06:59 06:59 06:59 Intake Total 685 1555 50 Output Total 1070 1605 200 Balance -385 -50 -150 Weight 97.1 kg 98.8 kg General appearance: PRESENT: no acute distress, cooperative, disheveled, obese Head exam: PRESENT: atraumatic, normocephalic Eye exam: PRESENT: conjunctiva pale, EOMI. ABSENT: nystagmus, scleral icterus Mouth exam: PRESENT: dry mucosa, neck supple, tongue midline Teeth exam: PRESENT: poor dentation - 65161 Neck exam: ABSENT: carotid bruit, JVD, lymphadenopathy, thyromegaly, tracheal deviation, tracheostomy Respiratory exam: PRESENT: decreased breath sounds, prolonged expiratory phas, rales, rhonchi, unlabored. ABSENT: retraction, stridor, tachypnea Cardiovascular exam: PRESENT: RRR, +S1, +S2 Pulses: PRESENT: normal radial pulses GI/Abdominal exam: PRESENT: soft. ABSENT: tenderness - 13544 Extremities exam: PRESENT: full ROM. ABSENT: calf tenderness, clubbing, joint swelling, pedal edema Musculoskeletal exam: ABSENT: deformity, dislocation Neurological exam: PRESENT: alert, awake Psychiatric exam: PRESENT: appropriate affect Skin exam: PRESENT: dry, warm Results Laboratory Results: 09/22/18 05:48 09/22/18 05:48 09/22/18 09/22/18 09/22/18 05:48 05:48 05:48 WBC 13.5 H RBC 3.45 L Hgb 8.4 L Hct 26.1 L MCV 76 L MCH 24.4 L MCHC 32.3 RDW 16.3 H Plt Count 175 Seg Neutrophils % 80.2 H Lymphocytes % 13.2 Monocytes % 6.1 Eosinophils % 0.1 Basophils % 0.4 Absolute Neutrophils 10.8 H Absolute Lymphocytes 1.8 Absolute Monocytes 0.8 Absolute Eosinophils 0.0 Absolute Basophils 0.1 Retic Count (auto) 0.97 Absolute Retic 0.034 Sodium 144.0 Potassium 4.3 Chloride 112 H Carbon Dioxide 27 Anion Gap 5 BUN 47 H Creatinine 1.27 H Est GFR ( Amer) > 60 Est GFR (Non-Af Amer) 57 L Glucose 128 H Calcium 8.0 L Magnesium 3.1 H Iron TIBC % Saturation Ferritin Vitamin B12 Folate 09/22/18 05:48 WBC RBC Hgb Hct MCV MCH MCHC RDW Plt Count Seg Neutrophils % Lymphocytes % Monocytes % Eosinophils % Basophils % Absolute Neutrophils Absolute Lymphocytes Absolute Monocytes Absolute Eosinophils Absolute Basophils Retic Count (auto) Absolute Retic Sodium Potassium Chloride Carbon Dioxide Anion Gap BUN Creatinine Est GFR ( Amer) Est GFR (Non-Af Amer) Glucose Calcium Magnesium Iron 73.3 TIBC 305 % Saturation 24 Ferritin 230.00 Vitamin B12 443.0 Folate 11.90 09/19/18 12:00 Clean Catch Midstream Urine Culture - Final Aerococcus Urinae 09/21/18 09/21/18 09/22/18 09:15 18:49 00:12 Troponin I 0.118 0.095 0.078 NT-Pro-B Natriuret Pep 5710 H 09/22/18 05:48 Troponin I NT-Pro-B Natriuret Pep 7100 H Impressions: KUB X-Ray 09/19/18 09:45 IMPRESSION: NO RADIOGRAPHIC EVIDENCE FOR ACUTE ABDOMINAL DISEASE. Chest X-Ray 09/22/18 08:15 IMPRESSION: Significant improved aeration of the lungs. Assessment & Plan - Diagnosis (1) Anemia due to chronic blood loss Is this a current diagnosis for this admission?: Yes Plan: Reticulocyte count absent suspect serum iron would be low (2) Diabetes mellitus, type 2 Qualifiers: Diabetes mellitus supervisor intermediates insulin use: without correction use Diabetes mellitus complication status: without complication Qualified Code(s): E11.9 - Type 2 diabetes mellitus without complications Is this a current diagnosis for this admission?: Yes Plan: Sliding scale insulin (3) Gram-positive cocci bacteremia Is this a current diagnosis for this admission?: Yes Plan: 09/19/18 12:15 Blood Culture - Final Blood Aerococcus Urinae 09/19/18 12:00 Urine Culture - Final Clean Catch Midstream Aerococcus Urinae 09/19/18 10:30 Blood Culture - Final Blood Aerococcus Urinae (4) Hypertension Qualifiers: Hypertension type: essential hypertension Qualified Code(s): I10 - Essential (primary) hypertension Is this a current diagnosis for this admission?: Yes Plan: Stable at this time (5) Respiratory failure with hypoxia Qualifiers: Chronicity: acute Qualified Code(s): J96.01 - Acute respiratory failure with hypoxia Is this a current diagnosis for this admission?: Yes Plan: Responding well to supplemental oxygen - Time Total Critical Time (Minutes): 55
[2018-09-24] MEDS ORDERED: PHARMACY COMMUNICATION ORDER MC NR (16:45)
--- NOTE | 2018-09-24 16:52 | PDOC PROGRESS REPORT ---
Subjective Progress Note for:: 09/24/18 Subjective:: Patient is being treated for respiratory failure and was moved to the intensive care unit due to his symptoms. It appears that he was septic. Blood cultures yielded gram-positive cocci, Aerococcus specie as well as urine culture. Patient had infectious disease consultation by Dr. Woods who reviewed his records. She suggested treating with penicillin G preferably continuous. Workup to identify the source of the infection including possible MARCELLE is also strongly suggested by Dr. Brasher. Patient has been hemodynamically stable. He required no pressors while in the intensive care unit. He also required no invasive or noninvasive respiratory assistance although he did require oxygen. It is felt at this time that he can be transferred to the medical floor we will continue with his management he did receive 2 units of packed red blood cells due to anemia and azotemia is resolving with his BUN down from a high of 47-30 today and his hemoglobin stable at 1 Reason For Visit: PNEUMONIA Physical Exam Vital Signs: Temp Pulse Resp BP Pulse Ox 98.6 F 100 22 H 101/74 93 09/24/18 16:00 09/24/18 16:00 09/24/18 16:00 09/24/18 16:00 09/24/18 16:00 Pulse Oximeter Continuous Start: 09/19/18 17:08 Freq: RTQ4 Status: Complete Protocol: Document 09/20/18 12:00 XAVI (Rec: 09/20/18 14:03 [facility] [id number]) Pulse Oximetry Assessment Equipment Usage Equipment Discontinued Continuous SpO2 Machine # 13 Intake & Output 09/23/18 09/24/18 09/25/18 06:59 06:59 06:59 Intake Total 2290 1550 50 Output Total 3260 3005 1710 Balance -970 -1455 -1660 Weight 96.8 kg 97.1 kg General appearance: PRESENT: no acute distress, well-developed, well-nourished Head exam: PRESENT: atraumatic, normocephalic Eye exam: PRESENT: conjunctiva pink, EOMI, PERRLA. ABSENT: scleral icterus Ear exam: PRESENT: normal external ear exam Mouth exam: PRESENT: moist, tongue midline Neck exam: ABSENT: carotid bruit, JVD, lymphadenopathy, thyromegaly Respiratory exam: PRESENT: clear to auscultation cleve. ABSENT: rales, rhonchi, wheezes Cardiovascular exam: PRESENT: RRR. ABSENT: diastolic murmur, rubs, systolic murmur Pulses: PRESENT: normal dorsalis pedis pul Vascular exam: PRESENT: normal capillary refill GI/Abdominal exam: PRESENT: normal bowel sounds, soft. ABSENT: distended, guarding, mass, organolmegaly, rebound, tenderness Rectal exam: PRESENT: deferred Extremities exam: PRESENT: full ROM. ABSENT: calf tenderness, clubbing, pedal edema Neurological exam: PRESENT: alert, awake, oriented to person, oriented to place, oriented to time, oriented to situation, CN II-XII grossly intact. ABSENT: motor sensory deficit Psychiatric exam: PRESENT: appropriate affect, normal mood. ABSENT: homicidal ideation, suicidal ideation Skin exam: PRESENT: dry, intact, warm. ABSENT: cyanosis, rash Results Laboratory Results: 09/23/18 06:45 09/24/18 07:00 09/24/18 09/24/18 07:00 07:00 Carbonic Acid 1.18 HCO3/H2CO3 Ratio 23:1 ABG pH 7.46 H ABG pCO2 39.3 ABG pO2 64.6 L ABG HCO3 27.4 H ABG O2 Saturation 93.7 L ABG Base Excess 3.5 FiO2 2L Sodium 142.0 Potassium 3.8 Chloride 106 Carbon Dioxide 30 Anion Gap 6 BUN 30 H Creatinine 1.19 Est GFR ( Amer) > 60 Est GFR (Non-Af Amer) > 60 Glucose 120 H Calcium 8.1 L Magnesium 2.6 H Prostate Specific Ag 5.280 H 09/21/18 09/21/18 09/22/18 09:15 18:49 00:12 Troponin I 0.118 0.095 0.078 NT-Pro-B Natriuret Pep 5710 H 09/22/18 05:48 Troponin I NT-Pro-B Natriuret Pep 7100 H Impressions: KUB X-Ray 09/19/18 09:45 IMPRESSION: NO RADIOGRAPHIC EVIDENCE FOR ACUTE ABDOMINAL DISEASE. Chest/Abdomen CTA 09/23/18 00:00 IMPRESSION: Mild persistent alveolar and interstitial pulmonary edema with trace pleural fluid. No CT angio evidence of acute pulmonary emboli. Renal Ultrasound 09/24/18 00:00 IMPRESSION: Normal bilateral renal ultrasound. Chest X-Ray 09/24/18 06:00 IMPRESSION: No significant change. Assessment & Plan - Time Time Spent with patient: 25-34 minutes Medications reviewed and adjusted accordingly: Yes Anticipated discharge: Home Within: within 72 hours - Inpatient Certification Based on my medical assessment, after consideration of the patient's comorbidities, presenting symptoms, or acuity I expect that the services needed warrant INPATIENT care.: Yes Medical Necessity: Need for IV Antibiotics, Risk of Complication if Not Cared For in Hospital - Plan Summary Plan Summary: 0. Aerococcus Bacteremia-start penicillin G as suggested by infectious disease. Once patient stable he likely will need a MARCELLE and this will have to be arranged outside hospital. Other source of infection including the urinary tract will also need to be pursued. Repeat blood cultures will also need to be done. The positive blood culture was from September 19 and will go ahead and order repeat blood cultures for tomorrow. Acute respiratory failure with hypoxia we will continue to wean off oxygen as t olerated 3. Type 2 diabetes mellitus this is likely worsened his blood sugar with the stress and acute infection. We will continue to adjust as needed 4. Hematochezia currently no need for further transfusion but will continue to monitor H&H 5. Anemia due to chronic blood loss 6. Hypertension patient has been off Levophed. We will continue to monitor 7. Dyslipidemia currently on simvastatin 8. Cystitis with urine culture yielding Aerococcus
[2018-09-24] MEDS: PENICILLIN G POTASSIUM 5,000,000 UNIT in DEXTROSE 5%-WATER 100 ML IV SCH (20:00)
[2018-09-24] MEDS: LOSARTAN POTASSIUM 25 MG TABLET PO SCH (22:37)
[2018-09-24] MEDS: SIMVASTATIN 40 MG TABLET PO SCH (22:43)
[2018-09-24] MEDS: INSULIN GLARGINE,HUM.REC.ANLOG 300 UNIT/3 ML INSULN.PEN SUBCUT SCH (22:46)
[2018-09-25] MEDS: PENICILLIN G POTASSIUM 5,000,000 UNIT in DEXTROSE 5%-WATER 100 ML IV SCH ×4 (01:00→17:19)
[2018-09-25] MEDS: IPRATROPIUM BROMIDE 0.02% NEB 0.5 MG/2.5 ML AMPUL NEB SCH ×4 (02:37→20:32)
[2018-09-25] MEDS: ACETYLCYSTEINE 20% SOLN 6000 MG/30 ML VIAL PO SCH (02:58)
[2018-09-25 06:17] LABS: ABSOLUTE BASOPHILS # (AUTO) 0.1 10^3/uL (0.0-0.2); ABSOLUTE EOSINOPHILS # (AUTO) 0.1 10^3/uL (0.0-0.6); ABSOLUTE LYMPHOCYTES (AUTO) 2.6 10^3/uL (0.5-4.7); ABSOLUTE MONOCYTES (AUTO) 0.5 10^3/uL (0.1-1.4); ABSOLUTE NEUT (AUTO) 10.5 10^3/uL (1.7-8.2); BASOPHILS % (AUTO) 0.4 % (0-2); EOSINOPHILS % (AUTO) 0.5 % (0-6); HEMATOCRIT 32.7 % (37.9-51.0); HEMOGLOBIN 10.7 g/dL (13.5-17.0); MEAN CORPUSCULAR HEMOGLOBIN 25.8 pg (27.0-33.4); MEAN CORPUSCULAR HGB CONC 32.7 g/dL (32.0-36.0); MEAN CORPUSCULAR VOLUME 79 fl (80-97); PLATELET COUNT 178 10^3/uL (150-450); RED BLOOD COUNT 4.15 10^6/uL (4.35-5.55); RED CELL DISTRIBUTION WIDTH 17.1 % (11.5-14.0); SEGMENTED NEUTROPHILS % (AUTO) 76.1 % (42-78); TOTAL CELLS COUNTED % (AUTO) 100 %; WHITE BLOOD COUNT 13.7 10^3/uL (4.0-10.5)
[2018-09-25 06:37] LABS: BLOOD UREA NITROGEN 29 mg/dL (7-20); CALCIUM 8.2 mg/dL (8.4-10.2); CHLORIDE 103 mmol/L (98-107); GLUCOSE 114 mg/dL (75-110); POTASSIUM 3.9 mmol/L (3.6-5.0); SODIUM 141.7 mmol/L (137-145)
[2018-09-25 06:43] LABS: CARBON DIOXIDE 36 mmol/L (22-30)
[2018-09-25 06:44] LABS: ANION GAP 3 (5-19)
[2018-09-25] MEDS: BUDESONIDE NEB 0.5 MG/2 ML AMPUL NEB SCH ×2 (08:36→20:32)
[2018-09-25] MEDS: LEVALBUTEROL HCL NEB 1.25 MG/3 ML AMPUL NEB PRN (08:36)
[2018-09-25] MEDS: POLYETHYLENE GLYCOL 3350 POWDER 17 GM/1 PACKET PO SCH (10:10)
[2018-09-25] MEDS: GUAIFENESIN 600 MG TABLET.SA PO SCH ×2 (10:10→21:29)
[2018-09-25] MEDS: METOPROLOL TARTRATE 25 MG TABLET PO SCH ×2 (10:10→21:29)
[2018-09-25] MEDS: FUROSEMIDE INJ/PF 40 MG/4 ML SDV IV SCH ×2 (10:10→17:05)
--- NOTE | 2018-09-25 11:45 | PDOC PROGRESS REPORT ---
Subjective Progress Note for:: 09/25/18 Subjective:: Patient is being treated for respiratory failure and was moved to the intensive care unit due to his symptoms. It appears that he was septic. Blood cultures yielded gram-positive cocci, Aerococcus specie as well as urine culture. Patient had infectious disease consultation by Dr. Woods who reviewed his records. She suggested treating with penicillin G preferably continuous. Workup to identify the source of the infection including possible MARCELLE is also strongly suggested by Dr. Brasher. Patient has been hemodynamically stable. He required no pressors while in the intensive care unit. He also required no invasive or noninvasive respiratory assistance although he did require oxygen. It is felt at this time that he can be transferred to the medical floor we will continue with his management he did receive 2 units of packed red blood cells due to anemia and azotemia is resolving with his BUN down from a high of 47-30 today and his hemoglobin stable at 10 09/25/18 Patient remains fairly stable. He said he feels better and denies any new symptoms. He is awaiting transfer out of the intensive care unit Reason For Visit: PNEUMONIA Physical Exam Vital Signs: Temp Pulse Resp BP Pulse Ox 98.1 F 101 H 14 98/59 L 100 09/25/18 10:00 09/25/18 10:00 09/25/18 10:00 09/25/18 10:00 09/25/18 10:00 Pulse Oximeter Continuous Start: 09/19/18 17:08 Freq: RTQ4 Status: Complete Protocol: Document 09/20/18 12:00 XAVI (Rec: 09/20/18 14:03 XAVI [id number]) Pulse Oximetry Assessment Equipment Usage Equipment Discontinued Continuous SpO2 Machine # 13 Intake & Output 09/24/18 09/25/18 09/26/18 06:59 06:59 06:59 Intake Total 1550 250 Output Total 3005 2460 Balance -1455 -2210 Weight 97.1 kg 97.1 kg General appearance: PRESENT: no acute distress, well-developed, well-nourished Head exam: PRESENT: atraumatic, normocephalic Eye exam: PRESENT: conjunctiva pink, EOMI, PERRLA. ABSENT: scleral icterus Ear exam: PRESENT: normal external ear exam Mouth exam: PRESENT: moist, tongue midline Neck exam: ABSENT: carotid bruit, JVD, lymphadenopathy, thyromegaly Respiratory exam: PRESENT: clear to auscultation cleve. ABSENT: rales, rhonchi, wheezes Cardiovascular exam: PRESENT: RRR. ABSENT: diastolic murmur, rubs, systolic murmur Pulses: PRESENT: normal dorsalis pedis pul Vascular exam: PRESENT: normal capillary refill GI/Abdominal exam: PRESENT: normal bowel sounds, soft. ABSENT: distended, guarding, mass, organolmegaly, rebound, tenderness Rectal exam: PRESENT: deferred Extremities exam: PRESENT: full ROM. ABSENT: calf tenderness, clubbing, pedal edema Neurological exam: PRESENT: alert, awake, oriented to person, oriented to place, oriented to time, oriented to situation, CN II-XII grossly intact. ABSENT: motor sensory deficit Psychiatric exam: PRESENT: appropriate affect, normal mood. ABSENT: homicidal ideation, suicidal ideation Skin exam: PRESENT: dry, intact, warm. ABSENT: cyanosis, rash Results Laboratory Results: 09/25/18 06:00 09/25/18 06:00 09/25/18 09/25/18 06:00 06:00 WBC 13.7 H RBC 4.15 L Hgb 10.7 L Hct 32.7 L MCV 79 L MCH 25.8 L MCHC 32.7 RDW 17.1 H Plt Count 178 Seg Neutrophils % 76.1 Lymphocytes % 19.0 Monocytes % 4.0 Eosinophils % 0.5 Basophils % 0.4 Absolute Neutrophils 10.5 H Absolute Lymphocytes 2.6 Absolute Monocytes 0.5 Absolute Eosinophils 0.1 Absolute Basophils 0.1 Sodium 141.7 Potassium 3.9 Chloride 103 Carbon Dioxide 36 H Anion Gap 3 L BUN 29 H Creatinine 1.27 H Est GFR ( Amer) > 60 Est GFR (Non-Af Amer) 57 L Glucose 114 H Calcium 8.2 L 09/21/18 09/21/18 09/22/18 09:15 18:49 00:12 Troponin I 0.118 0.095 0.078 NT-Pro-B Natriuret Pep 5710 H 09/22/18 05:48 Troponin I NT-Pro-B Natriuret Pep 7100 H Impressions: KUB X-Ray 09/19/18 09:45 IMPRESSION: NO RADIOGRAPHIC EVIDENCE FOR ACUTE ABDOMINAL DISEASE. Chest/Abdomen CTA 09/23/18 00:00 IMPRESSION: Mild persistent alveolar and interstitial pulmonary edema with trace pleural fluid. No CT angio evidence of acute pulmonary emboli. Renal Ultrasound 09/24/18 00:00 IMPRESSION: Normal bilateral renal ultrasound. Chest X-Ray 09/24/18 06:00 IMPRESSION: No significant change. Assessment & Plan - Time Time Spent with patient: 15-24 minutes Medications reviewed and adjusted accordingly: Yes Anticipated discharge: Home Within: within 72 hours - Inpatient Certification Based on my medical assessment, after consideration of the patient's comorbidities, presenting symptoms, or acuity I expect that the services needed warrant INPATIENT care.: Yes Medical Necessity: Need for IV Antibiotics - Plan Summary Plan Summary: 1. Aerococcus Bacteremia-Cont penicillin G as suggested by infectious disease. Repeat blood culture done today and will follow up with result. Will need to arrange for a MARCELLE to rule out occult source of infection. 2.Acute respiratory failure with hypoxia we will continue to wean off oxygen as tolerated 3. Type 2 diabetes mellitus this is likely worsened his blood sugar with the stress and acute infection. We will continue to adjust insulin as needed 4. Hematochezia currently no need for further transfusion but will continue to monitor H&H 5. Anemia due to chronic blood loss 6. Hypertension - stable 7. Dyslipidemia currently on simvastatin 8. Cystitis with urine culture yielding Aerococcus. We will continue with current antibiotics
[2018-09-25] MEDS: LANSOPRAZOLE 30 MG TAB.RAP.DR PO SCH (13:03)
[2018-09-25] MEDS: LOSARTAN POTASSIUM 25 MG TABLET PO SCH (21:24)
[2018-09-25] MEDS: SIMVASTATIN 40 MG TABLET PO SCH (21:30)
[2018-09-25] MEDS: INSULIN GLARGINE,HUM.REC.ANLOG 300 UNIT/3 ML INSULN.PEN SUBCUT SCH (21:51)
[2018-09-26] MEDS: PENICILLIN G POTASSIUM 5,000,000 UNIT in DEXTROSE 5%-WATER 100 ML IV SCH ×5 (00:13→23:24)
[2018-09-26] MEDS: IPRATROPIUM BROMIDE 0.02% NEB 0.5 MG/2.5 ML AMPUL NEB SCH ×4 (02:21→20:22)
[2018-09-26] MEDS: LANSOPRAZOLE 30 MG TAB.RAP.DR PO SCH (05:20)
[2018-09-26] MEDS: BUDESONIDE NEB 0.5 MG/2 ML AMPUL NEB SCH ×2 (07:38→20:22)
[2018-09-26] MEDS: GUAIFENESIN 600 MG TABLET.SA PO SCH ×2 (08:50→21:41)
[2018-09-26] MEDS: FUROSEMIDE INJ/PF 40 MG/4 ML SDV IV SCH (08:50)
[2018-09-26] MEDS: POLYETHYLENE GLYCOL 3350 POWDER 17 GM/1 PACKET PO SCH (08:50)
[2018-09-26] MEDS: METOPROLOL TARTRATE 25 MG TABLET PO SCH ×2 (08:50→21:41)
--- NOTE | 2018-09-26 12:00 | PDOC PROGRESS REPORT ---
Subjective Progress Note for:: 09/26/18 Subjective:: Patient is being treated for respiratory failure and was moved to the intensive care unit due to his symptoms. It appears that he was septic. Blood cultures yielded gram-positive cocci, Aerococcus specie as well as urine culture. Patient had infectious disease consultation by Dr. Woods who reviewed his records. She suggested treating with penicillin G preferably continuous. Workup to identify the source of the infection including possible MARCELLE is also strongly suggested by Dr. Brasher. Patient has been hemodynamically stable. He required no pressors while in the intensive care unit. He also required no invasive or noninvasive respiratory assistance although he did require oxygen. It is felt at this time that he can be transferred to the medical floor we will continue with his management he did receive 2 units of packed red blood cells due to anemia and azotemia is resolving with his BUN down from a high of 47-30 today and his hemoglobin stable at 10 09/25/18 Patient remains fairly stable. He said he feels better and denies any new symptoms. He is awaiting transfer out of the intensive care unit 09/26 No new complaints. Rectal exam done by me reveals no significant findings. I have placed a call to [facility] regarding MARCELLE and Im awaiting call back. Patient will also need PICC line for prolonged IV Pen (?duration currently unknown}. He has a Central Line in place. Reason For Visit: PNEUMONIA Physical Exam Vital Signs: Temp Pulse Resp BP Pulse Ox 97.7 F 99 16 110/59 L 100 09/26/18 08:35 09/26/18 08:35 09/26/18 08:35 09/26/18 08:35 09/26/18 08:35 Pulse Oximeter Continuous Start: 09/19/18 17:08 Freq: RTQ4 Status: Complete Protocol: Document 09/20/18 12:00 LDA (Rec: 09/20/18 14:03 LDA [id number]) Pulse Oximetry Assessment Equipment Usage Equipment Discontinued Continuous SpO2 Machine # 13 Intake & Output 09/25/18 09/26/18 09/27/18 06:59 06:59 06:59 Intake Total 250 687 100 Output Total 2460 1600 Balance -2570 -393 100 Weight 97.1 kg 95.3 kg General appearance: PRESENT: no acute distress, well-developed, well-nourished Head exam: PRESENT: atraumatic, normocephalic Eye exam: PRESENT: conjunctiva pink, EOMI, PERRLA. ABSENT: scleral icterus Ear exam: PRESENT: normal external ear exam Mouth exam: PRESENT: moist, tongue midline Neck exam: PRESENT: other - Central Line in L IJ. ABSENT: carotid bruit, JVD, lymphadenopathy, thyromegaly Respiratory exam: PRESENT: clear to auscultation cleve. ABSENT: rales, rhonchi, wheezes Cardiovascular exam: PRESENT: RRR. ABSENT: diastolic murmur, rubs, systolic murmur Pulses: PRESENT: normal dorsalis pedis pul Vascular exam: PRESENT: normal capillary refill GI/Abdominal exam: PRESENT: normal bowel sounds, soft. ABSENT: distended, guarding, mass, organolmegaly, rebound, tenderness Rectal exam: PRESENT: normal inspection, normal prostate. ABSENT: mass, prostate enlargement, prostate tenderness Extremities exam: PRESENT: full ROM. ABSENT: calf tenderness, clubbing, pedal e tracee Neurological exam: PRESENT: alert, awake, oriented to person, oriented to place, oriented to time, oriented to situation, CN II-XII grossly intact. ABSENT: motor sensory deficit Psychiatric exam: PRESENT: appropriate affect, normal mood. ABSENT: homicidal ideation, suicidal ideation Skin exam: PRESENT: dry, intact, warm. ABSENT: cyanosis, rash Results Laboratory Results: 09/25/18 06:00 09/25/18 06:00 09/21/18 09/21/18 09/22/18 09:15 18:49 00:12 Troponin I 0.118 0.095 0.078 NT-Pro-B Natriuret Pep 5710 H 09/22/18 05:48 Troponin I NT-Pro-B Natriuret Pep 7100 H Impressions: KUB X-Ray 09/19/18 09:45 IMPRESSION: NO RADIOGRAPHIC EVIDENCE FOR ACUTE ABDOMINAL DISEASE. Chest/Abdomen CTA 09/23/18 00:00 IMPRESSION: Mild persistent alveolar and interstitial pulmonary edema with trace pleural fluid. No CT angio evidence of acute pulmonary emboli. Renal Ultrasound 09/24/18 00:00 IMPRESSION: Normal bilateral renal ultrasound. Chest X-Ray 09/24/18 06:00 IMPRESSION: No significant change. Assessment & Plan - Time Time Spent with patient: 25-34 minutes Medications reviewed and adjusted accordingly: Yes Anticipated discharge: Home Within: within 72 hours - Inpatient Certification Based on my medical assessment, after consideration of the patient's co morbidities, presenting symptoms, or acuity I expect that the services needed warrant INPATIENT care.: Yes Medical Necessity: Need for IV Antibiotics
[2018-09-26] MEDS: INSULIN GLARGINE,HUM.REC.ANLOG 300 UNIT/3 ML INSULN.PEN SUBCUT SCH (21:40)
[2018-09-26] MEDS: SIMVASTATIN 40 MG TABLET PO SCH (21:41)
[2018-09-26] MEDS: LOSARTAN POTASSIUM 25 MG TABLET PO SCH (21:41)
[2018-09-27] MEDS: IPRATROPIUM BROMIDE 0.02% NEB 0.5 MG/2.5 ML AMPUL NEB SCH ×4 (01:23→20:30)
[2018-09-27] MEDS: LANSOPRAZOLE 30 MG TAB.RAP.DR PO SCH (05:31)
[2018-09-27] MEDS: PENICILLIN G POTASSIUM 5,000,000 UNIT in DEXTROSE 5%-WATER 100 ML IV SCH ×3 (05:31→19:10)
[2018-09-27 05:49] LABS: ABSOLUTE EOSINOPHILS # (AUTO) 0.2 10^3/uL (0.0-0.6); ABSOLUTE LYMPHOCYTES (AUTO) 2.1 10^3/uL (0.5-4.7); ABSOLUTE MONOCYTES (AUTO) 0.6 10^3/uL (0.1-1.4); ABSOLUTE NEUT (AUTO) 9.4 10^3/uL (1.7-8.2); BASOPHILS % (AUTO) 0.2 % (0-2); EOSINOPHILS % (AUTO) 1.6 % (0-6); HEMATOCRIT 31.2 % (37.9-51.0); HEMOGLOBIN 10.2 g/dL (13.5-17.0); LYMPHOCYTES % (AUTO) 17.3 % (13-45); MEAN CORPUSCULAR HEMOGLOBIN 25.9 pg (27.0-33.4); MEAN CORPUSCULAR HGB CONC 32.7 g/dL (32.0-36.0); MEAN CORPUSCULAR VOLUME 79 fl (80-97); MONOCYTES % (AUTO) 5.1 % (3-13); PLATELET COUNT 174 10^3/uL (150-450); RED BLOOD COUNT 3.93 10^6/uL (4.35-5.55); RED CELL DISTRIBUTION WIDTH 17.4 % (11.5-14.0); SEGMENTED NEUTROPHILS % (AUTO) 75.8 % (42-78); TOTAL CELLS COUNTED % (AUTO) 100 %; WHITE BLOOD COUNT 12.4 10^3/uL (4.0-10.5)
[2018-09-27 06:12] LABS: BLOOD UREA NITROGEN 23 mg/dL (7-20); CALCIUM 8.1 mg/dL (8.4-10.2); GLUCOSE 94 mg/dL (75-110); POTASSIUM 4.2 mmol/L (3.6-5.0)
[2018-09-27 06:18] LABS: ANION GAP 7 (5-19); CARBON DIOXIDE 34 mmol/L (22-30); CHLORIDE 99 mmol/L (98-107); SODIUM 139.6 mmol/L (137-145)
[2018-09-27] MEDS: LEVALBUTEROL HCL NEB 1.25 MG/3 ML AMPUL NEB PRN (09:22)
[2018-09-27] MEDS: BUDESONIDE NEB 0.5 MG/2 ML AMPUL NEB SCH ×2 (09:23→20:30)
--- NOTE | 2018-09-27 11:18 | RADIOLOGY REPORT (SQ) ---
EXAM DESCRIPTION: PICC INSERTION; FLUORO/CV PLACEMENT; U/S GUIDE FOR VASCULAR ACCESS COMPLETED DATE/TIME: 09/27/2018 10:56 am REASON FOR STUDY: Replace Central Line. Will need prolonged antibiot; IV ABX ACCESS COMPARISON: Chest film 09/24/2018 FLUOROSCOPY TIME: 44 seconds 1 fluoroscopic and 1 ultrasound images saved to PACS. TECHNIQUE: Fluoroscopic and ultrasound guided PICC placement. LIMITATIONS: None. PROCEDURE: After written consent and assessment were obtained, the patient was brought into the fluo roscopy room and placed supine on the table. Ultrasound evaluation of potential access sites were per formed. After successfully identifying a patent right basilic vein, the right arm was prepped and fabby ped in a sterile fashion along with the ultrasound probe. The entry site was anesthetized with 1% lid ocaine. A 21 gauge 7 cm needle was advanced through the skin and into the basilic vein under live ult rasound guidance. An ultrasound image was saved to PACS confirming access site. A .018 guide wire w as then inserted through the needle and into the venous system. The needle was then removed and an 11 blade scalpel was used to make a 1cm skin incision. A 5 fr peel-away sheath was advanced over the w leonid and into the venous system. A measurement was then made using the existing wire and live fluorosc opic guidance. The wire was then removed and trimmed. The PICC was advanced through the peel-away she ath and into the venous system. The peel-away sheath was removed and the catheter was adhered to the patients arm with a stat lock. The catheter was then aspirated and flushed and a sterile bandage was placed over the access site. A fluoroscopic spot image was saved to PACS confirming the catheter tip within the superior vena cava. IMPRESSION: SUCCESSFUL PLACEMENT OF A 5 FR DUAL LUMEN 37 CM PICC IN THE RIGHT BASILIC VEIN. COMMENT: Patient medication list reviewed: Yes- Quality ID# 130:Eligible professional attests to doc umenting in the medical record they obtained, updated, or reviewed the patient's current medications. . Quality ID 145: Final reports for procedures using fluoroscopy that document radiation exposure kayli kelly, or exposure time and number of fluorographic images (if radiation exposure indices are not avail able) Quality ID #76: The patient was prepped and draped using maximum sterile barrier technique including cap, mask, sterile gown, sterile gloves, a large sterile sheet, hand hygiene, and 2% Chlorhexidine fo r cutaneous antisepsis. When ultrasound is used, sterile ultrasound techniques are followed requiring sterile gel and sterile probes. TECHNICAL DOCUMENTATION: JOB ID: [id number] [employer]- All Rights Reserved rev-01/25 Reading location - IP/workstation name: [email or web address] [id number]
[2018-09-27] MEDS: FUROSEMIDE INJ/PF 40 MG/4 ML SDV IV SCH (15:53)
[2018-09-27] MEDS: METOPROLOL TARTRATE 25 MG TABLET PO SCH ×2 (15:53→21:15)
[2018-09-27] MEDS: POLYETHYLENE GLYCOL 3350 POWDER 17 GM/1 PACKET PO SCH (15:53)
[2018-09-27] MEDS: GUAIFENESIN 600 MG TABLET.SA PO SCH ×2 (15:54→21:15)
--- NOTE | 2018-09-27 17:52 | PDOC PROGRESS REPORT ---
Subjective Progress Note for:: 09/27/18 Subjective:: Patient is being treated for respiratory failure and was moved to the intensive care unit due to his symptoms. It appears that he was septic. Blood cultures yielded gram-positive cocci, Aerococcus specie as well as urine culture. Patient had infectious disease consultation by Dr. Woods who reviewed his records. She suggested treating with penicillin G preferably continuous. Workup to identify the source of the infection including possible MARCELLE is also strongly suggested by Dr. Brasher. Patient has been hemodynamically stable. He required no pressors while in the intensive care unit. He also required no invasive or noninvasive respiratory assistance although he did require oxygen. It is felt at this time that he can be transferred to the medical floor we will continue with his management he did receive 2 units of packed red blood cells due to anemia and azotemia is resolving with his BUN down from a high of 47-30 today and his hemoglobin stable at 10 09/25/18 Patient remains fairly stable. He said he feels better and denies any new symptoms. He is awaiting transfer out of the intensive care unit 09/26 No new complaints. Rectal exam done by me reveals no significant findings. I have placed a call to [facility] regarding MARCELLE and Im awaiting call back. Patient will also need PICC line for prolonged IV Pen (?duration currently unknown}. He has a Central Line in place. Reason For Visit: PNEUMONIA Physical Exam Vital Signs: Temp Pulse Resp BP Pulse Ox 98.1 F 69 16 107/75 99 09/27/18 11:55 09/27/18 14:00 09/27/18 11:55 09/27/18 11:55 09/27/18 11:55 Pulse Oximeter Continuous Start: 09/19/18 17:08 Freq: RTQ4 Status: Complete Protocol: Document 09/20/18 12:00 LDA (Rec: 09/20/18 14:03 LDA [id number]) Pulse Oximetry Assessment Equipment Usage Equipment Discontinued Continuous SpO2 Machine # 13 Intake & Output 09/26/18 09/27/18 09/28/18 06:59 06:59 06:59 Intake Total 687 1151 0 Output Total 1600 575 Balance -913 576 0 Weight 95.3 kg 94.1 kg General appearance: PRESENT: no acute distress, well-developed, well-nourished Head exam: PRESENT: atraumatic, normocephalic Eye exam: PRESENT: conjunctiva pink, EOMI, PERRLA. ABSENT: scleral icterus Ear exam: PRESENT: normal external ear exam Mouth exam: PRESENT: moist, tongue midline Neck exam: ABSENT: carotid bruit, JVD, lymphadenopathy, thyromegaly Respiratory exam: PRESENT: clear to auscultation cleve. ABSENT: rales, rhonchi, wheezes Cardiovascular exam: PRESENT: RRR. ABSENT: diastolic murmur, rubs, systolic murmur Pulses: PRESENT: normal dorsalis pedis pul Vascular exam: PRESENT: normal capillary refill GI/Abdominal exam: PRESENT: normal bowel sounds, soft. ABSENT: distended, guarding, mass, organolmegaly, rebound, tenderness Rectal exam: PRESENT: deferred Extremities exam: PRESENT: full ROM. ABSENT: calf tenderness, clubbing, pedal edema Neurological exam: PRESENT: alert, awake, oriented to person, oriented to place, oriented to time, oriented to situation, CN II-XII grossly intact. ABSENT: motor sensory deficit Psychiatric exam: PRESENT: appropriate affect, normal mood. ABSENT: homicidal ideation, suicidal ideation Skin exam: PRESENT: dry, intact, warm. ABSENT: cyanosis, rash Results Laboratory Results: 09/27/18 05:30 09/27/18 05:30 09/27/18 09/27/18 05:30 05:30 WBC 12.4 H RBC 3.93 L Hgb 10.2 L Hct 31.2 L MCV 79 L MCH 25.9 L MCHC 32.7 RDW 17.4 H Plt Count 174 Seg Neutrophils % 75.8 Lymphocytes % 17.3 Monocytes % 5.1 Eosinophils % 1.6 Basophils % 0.2 Absolute Neutrophils 9.4 H Absolute Lymphocytes 2.1 Absolute Monocytes 0.6 Absolute Eosinophils 0.2 Absolute Basophils 0.0 Sodium 139.6 Potassium 4.2 Chloride 99 Carbon Dioxide 34 H Anion Gap 7 BUN 23 H Creatinine 1.32 H Est GFR ( Amer) > 60 Est GFR (Non-Af Amer) 55 L Glucose 94 Calcium 8.1 L 09/21/18 09/21/18 09/22/18 09:15 18:49 00:12 Troponin I 0.118 0.095 0.078 NT-Pro-B Natriuret Pep 5710 H 09/22/18 09/27/18 05:48 05:30 Troponin I NT-Pro-B Natriuret Pep 7100 H 1120 H Impressions: KUB X-Ray 09/19/18 09:45 IMPRESSION: NO RADIOGRAPHIC EVIDENCE FOR ACUTE ABDOMINAL DISEASE. Chest/Abdomen CTA 09/23/18 00:00 IMPRESSION: Mild persistent alveolar and interstitial pulmonary edema with trace pleural fluid. No CT angio evidence of acute pulmonary emboli. Renal Ultrasound 09/24/18 00:00 IMPRESSION: Normal bilateral renal ultrasound. Chest X-Ray 09/24/18 06:00 IMPRESSION: No significant change. Guidance Fluoroscopy 09/27/18 00:00 IMPRESSION: SUCCESSFUL PLACEMENT OF A 5 FR DUAL LUMEN 37 CM PICC IN THE RIGHT BASILIC VEIN. Interventional Vascular Procedure 09/27/18 00:00 IMPRESSION: SUCCESSFUL PLACEMENT OF A 5 FR DUAL LUMEN 37 CM PICC IN THE RIGHT BASILIC VEIN. PICC Line Insertion 09/27/18 00:00 IMPRESSION: SUCCESSFUL PLACEMENT OF A 5 FR DUAL LUMEN 37 CM PICC IN THE RIGHT BASILIC VEIN. Assessment & Plan - Time Time Spent with patient: 25-34 minutes Medications reviewed and adjusted accordingly: Yes Anticipated discharge: Home Within: Other - Inpatient Certification Based on my medical assessment, after consideration of the patient's comorbidities, presenting symptoms, or acuity I expect that the services needed warrant INPATIENT care.: Yes Medical Necessity: Need for IV Antibiotics - Plan Summary Plan Summary: 1. Aerococcus Bacteremia-Cont penicillin G as suggested by infectious disease. Repeat blood culture is ngative. 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 PICC Line has been inserted, he will need antibiotics for 6 weeks starting from 09/26, day of negative blood culture. Will need further w/u to evaluate source 2.Acute respiratory failure with hypoxia - continue to wean off oxygen as tolerated 3. Type 2 diabetes mellitus this is likely worsened his blood sugar with the stress and acute infection. We will continue to adjust insulin as needed 4. Hematochezia currently no need for further transfusion but will continue to monitor H&H. Rectal exam was gradually negative 5. Anemia due to chronic blood loss 6. Hypertension - stable 7. Dyslipidemia currently on simvastatin 8. Cystitis with urine culture yielding Aerococcus.
[2018-09-27] MEDS: SIMVASTATIN 40 MG TABLET PO SCH (21:16)
[2018-09-27] MEDS: LOSARTAN POTASSIUM 25 MG TABLET PO SCH (21:16)
[2018-09-27] MEDS: INSULIN GLARGINE,HUM.REC.ANLOG 300 UNIT/3 ML INSULN.PEN SUBCUT SCH (21:18)
[2018-09-27] MEDS: INSULIN LISPRO 100 UNIT/ML 3 ML VIAL SUBCUT PRN (21:25)
[2018-09-28] MEDS: PENICILLIN G POTASSIUM 5,000,000 UNIT in DEXTROSE 5%-WATER 100 ML IV SCH ×5 (00:22→23:37)
[2018-09-28] MEDS: IPRATROPIUM BROMIDE 0.02% NEB 0.5 MG/2.5 ML AMPUL NEB SCH ×4 (01:28→20:19)
[2018-09-28] MEDS: LANSOPRAZOLE 30 MG TAB.RAP.DR PO SCH (05:31)
[2018-09-28] MEDS: FUROSEMIDE INJ/PF 40 MG/4 ML SDV IV SCH (09:11)
[2018-09-28] MEDS: POLYETHYLENE GLYCOL 3350 POWDER 17 GM/1 PACKET PO SCH (09:25)
[2018-09-28] MEDS: GUAIFENESIN 600 MG TABLET.SA PO SCH ×2 (09:26→22:51)
[2018-09-28] MEDS: METOPROLOL TARTRATE 25 MG TABLET PO SCH ×2 (09:26→22:50)
[2018-09-28] MEDS: BUDESONIDE NEB 0.5 MG/2 ML AMPUL NEB SCH ×2 (10:25→20:19)
[2018-09-28] MEDS: INSULIN LISPRO 100 UNIT/ML 3 ML VIAL SUBCUT PRN (12:04)
--- NOTE | 2018-09-28 13:24 | PDOC PROGRESS REPORT ---
Subjective Progress Note for:: 09/28/18 Subjective:: Patient is being treated for respiratory failure and was moved to the intensive care unit due to his symptoms. It appears that he was septic. Blood cultures yielded gram-positive cocci, Aerococcus specie as well as urine culture. Patient had infectious disease consultation by Dr. Woods who reviewed his records. She suggested treating with penicillin G preferably continuous. Workup to identify the source of the infection including possible MARCELLE is also strongly suggested by Dr. Brasher. Patient has been hemodynamically stable. He required no pressors while in the intensive care unit. He also required no invasive or noninvasive respiratory assistance although he did require oxygen. It is felt at this time that he can be transferred to the medical floor we will continue with his management he did receive 2 units of packed red blood cells due to anemia and azotemia is resolving with his BUN down from a high of 47-30 today and his hemoglobin stable at 10 09/25/18 Patient remains fairly stable. He said he feels better and denies any new symptoms. He is awaiting transfer out of the intensive care unit 09/26 No new complaints. Rectal exam done by me reveals no significant findings. I have placed a call to [facility] regarding MARCELLE and Im awaiting call back. Patient will also need PICC line for prolonged IV Pen (?duration currently unknown}. He has a Central Line in place. 09/28 MARCELLE reveals endocarditis as per my discussion with Dr. Solorio Reason For Visit: PNEUMONIA Physical Exam Vital Signs: Temp Pulse Resp BP Pulse Ox 98.1 F 93 18 90/62 L 100 09/28/18 11:38 09/28/18 11:38 09/28/18 11:38 09/28/18 11:38 09/28/18 11:38 Pulse Oximeter Continuous Start: 09/19/18 17:08 Freq: RTQ4 Status: Complete Protocol: Document 09/20/18 12:00 LDA (Rec: 09/20/18 14:03 LDA [id number]) Pulse Oximetry Assessment Equipment Usage Equipment Discontinued Continuous SpO2 Machine # 13 Intake & Output 09/27/18 09/28/18 09/29/18 06:59 06:59 06:59 Intake Total 1151 774 200 Output Total 575 Balance 576 774 200 Weight 94.1 kg 94.1 kg General appearance: PRESENT: no acute distress, well-developed, well-nourished Head exam: PRESENT: atraumatic, normocephalic Eye exam: PRESENT: conjunctiva pink, EOMI, PERRLA. ABSENT: scleral icterus Ear exam: PRESENT: normal external ear exam Mouth exam: PRESENT: moist, tongue midline Neck exam: ABSENT: carotid bruit, JVD, lymphadenopathy, thyromegaly Respiratory exam: PRESENT: clear to auscultation cleve. ABSENT: rales, rhonchi, wheezes Cardiovascular exam: PRESENT: RRR, other - PICC line R Basilic. ABSENT: diastolic murmur, rubs, systolic murmur Pulses: PRESENT: normal dorsalis pedis pul Vascular exam: PRESENT: normal capillary refill GI/Abdominal exam: PRESENT: normal bowel sounds, soft. ABSENT: distended, guarding, mass, organolmegaly, rebound, tenderness Rectal exam: PRESENT: deferred Extremities exam: PRESENT: full ROM. ABSENT: calf tenderness, clubbing, pedal edema Neurological exam: PRESENT: alert, awake, oriented to person, oriented to place, oriented to time, oriented to situation, CN II-XII grossly intact. ABSENT: motor sensory deficit Psychiatric exam: PRESENT: appropriate affect, normal mood. ABSENT: homicidal ideation, suicidal ideation Skin exam: PRESENT: dry, intact, warm. ABSENT: cyanosis, rash Results Laboratory Results: 09/27/18 05:30 09/27/18 05:30 09/21/18 09/21/18 09/22/18 09:15 18:49 00:12 Troponin I 0.118 0.095 0.078 NT-Pro-B Natriuret Pep 5710 H 09/22/18 09/27/18 05:48 05:30 Troponin I NT-Pro-B Natriuret Pep 7100 H 1120 H Impressions: KUB X-Ray 09/19/18 09:45 IMPRESSION: NO RADIOGRAPHIC EVIDENCE FOR ACUTE ABDOMINAL DISEASE. Chest/Abdomen CTA 09/23/18 00:00 IMPRESSION: Mild persistent alveolar and interstitial pulmonary edema with trace pleural fluid. No CT angio evidence of acute pulmonary emboli. Renal Ultrasound 09/24/18 00:00 IMPRESSION: Normal bilateral renal ultrasound. Chest X-Ray 09/24/18 06:00 IMPRESSION: No significant change. Guidance Fluoroscopy 09/27/18 00:00 IMPRESSION: SUCCESSFUL PLACEMENT OF A 5 FR DUAL LUMEN 37 CM PICC IN THE RIGHT BASILIC VEIN. Interventional Vascular Procedure 09/27/18 00:00 IMPRESSION: SUCCESSFUL PLACEMENT OF A 5 FR DUAL LUMEN 37 CM PICC IN THE RIGHT BASILIC VEIN. PICC Line Insertion 09/27/18 00:00 IMPRESSION: SUCCESSFUL PLACEMENT OF A 5 FR DUAL LUMEN 37 CM PICC IN THE RIGHT BASILIC VEIN. Assessment & Plan - Plan Summary Plan Summary: 1. Aerococcus Bacteremia-Cont penicillin G as suggested by infectious disease. Repeat blood culture is negative. 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 PICC Line has been inserted, he will need antibiotics for 6 weeks starting from 09/26 thru 11/07. Obtain CT abd/pelvis to evaluate for source, he may need colonoscopy and further urology eval as outpatient Will need further w/u to evaluate source 2.Acute respiratory failure with hypoxia - continue to wean off oxygen as tolerated 3. Type 2 diabetes mellitus likely worsened his blood sugar with the stress and acute infection. We will continue to adjust insulin as needed 4. Hematochezia currently no need for further transfusion but will continue to monitor H&H. Rectal exam was negative 5. Anemia due to chronic blood loss 6. Hypertension - stable 7. Dyslipidemia currently on simvastatin 8. Cystitis with urine culture yielding Aerococcus.
[2018-09-28] MEDS: BENZOCAINE/MENTHOL SORE THROAT LOZENGE BUCCAL PRN (13:31)
--- NOTE | 2018-09-28 18:41 | Progress Note ---
Provider Note Provider Note: Transesophageal echocardiogram reveals a 1.1 x 0.6 cm echodensity on the ventricular aspect of the posterior leaflet of the mitral valve. There is a second filamentous mass on the atrial aspect of the anterior leaflet of the mitral valve that either represents cortical structural or vegetation. Severe mitral regurgitation is also present. Appointment has been scheduled with Dr. Solorio at the heart center in [place] on October 15 to reassess patient on further referral to cardiothoracic surgery if indicated
--- NOTE | 2018-09-28 19:17 | RADIOLOGY REPORT (SQ) ---
EXAM DESCRIPTION: CT ABDOMEN WITH IV ORAL CONT COMPLETED DATE/TIME: 09/28/2018 4:52 pm REASON FOR STUDY: Bactermia, r/o occult etiology COMPARISON: None. TECHNIQUE: CT scan of the abdomen performed with intravenous and with oral contrast using helical sc anning technique with dynamic intravenous contrast injection. Images reviewed with lung, soft tissue, and bone windows. Reconstructed coronal and sagittal MPR images reviewed. Delayed images for evaluat ion of the urinary system also acquired and evaluated. All images stored on PACS. All CT scanners at this facility use dose modulation, iterative reconstruc tion, and/or weight based dosing when appropriate to reduce radiation dose to as low as reasonably ac hievable (ALARA). [facility]: Dose Right [facility]: CareDose [facility]: Dose Right [facility]: Teradose 4D [facility]: [employer] CONTRAST TYPE AND DOSE: contrast/concentration: Isovue 350.00 mg/ml; Total Contrast Delivered: 100.0 ml; Total Saline Delivered: 72.0 ml RENAL FUNCTION: Not reported on scanned paperwork RADIATION DOSE: CT Rad equipment meets quality standard of care and radiation dose reduction techniq ues were employed. CTDIvol: 15.5 - 18.1 mGy. DLP: 1764 mGy-cm. . LIMITATIONS: None. FINDINGS: LOWER CHEST: Cardiomegaly. No nodules or pleural effusions. LIVER: Normal size. No masses. Incidental note is made of a 1.5 cm hepatic cyst within the right hep atic lobe. No dilated ducts. SPLEEN: Normal size. No focal lesions. PANCREAS: No masses. No significant calcifications. No adjacent inflammation or peripancreatic fluid collections. Pancreatic duct not dilated. GALLBLADDER: No identified stones by CT criteria. No inflammatory changes to suggest cholecystitis. ADRENAL GLANDS: No significant masses or asymmetry. RIGHT KIDNEY AND URETER: No solid masses. No significant calcifications. No hydronephrosis or hyd roureter. LEFT KIDNEY AND URETER: No solid masses. No significant calcifications. No hydronephrosis or hydr oureter. AORTA AND VESSELS: Calcified and noncalcified atherosclerotic plaque. Mild focal ectasia is seen of the distal aorta. No aneurysm or dissection. RETROPERITONEUM: No retroperitoneal adenopathy, hemorrhage or masses. BOWEL AND PERITONEAL CAVITY: No masses or inflammatory changes. No free fluid or peritoneal masses. APPENDIX: Not visualized. ABDOMINAL WALL: Bilateral fat containing inguinal hernias. BONES: No significant or acute findings. OTHER: No other significant finding. IMPRESSION: No evidence of acute intra-abdominal infectious/inflammatory process. TECHNICAL DOCUMENTATION: JOB ID: [id number] Quality ID # [id number]: Final reports with documentation of one or more dose reduction techniques (e.g., Au tomated exposure control, adjustment of the mA and/or kV according to patient size, use of iterative reconstruction technique) 2010 [employer]- All Rights Reserved Reading location - IP/workstation name: [email or web address]
[2018-09-28] MEDS: LOSARTAN POTASSIUM 25 MG TABLET PO SCH (22:50)
[2018-09-28] MEDS: SIMVASTATIN 40 MG TABLET PO SCH (22:51)
[2018-09-28] MEDS: INSULIN GLARGINE,HUM.REC.ANLOG 300 UNIT/3 ML INSULN.PEN SUBCUT SCH (22:52)
[2018-09-29] MEDS: IPRATROPIUM BROMIDE 0.02% NEB 0.5 MG/2.5 ML AMPUL NEB SCH ×4 (02:20→20:22)
[2018-09-29] MEDS: PENICILLIN G POTASSIUM 5,000,000 UNIT in DEXTROSE 5%-WATER 100 ML IV SCH ×3 (06:48→17:21)
[2018-09-29] MEDS: LANSOPRAZOLE 30 MG TAB.RAP.DR PO SCH (06:49)
[2018-09-29 07:30] LABS: ALANINE AMINOTRANSFERASE 37 U/L (21-72); ALBUMIN 2.9 g/dL (3.5-5.0); ALKALINE PHOSPHATASE 67 U/L (38-126); ASPARTATE AMINO TRANSFERASE 29 U/L (17-59); BILIRUBIN,DIRECT 0.2 mg/dL (0.0-0.4); BILIRUBIN,TOTAL 0.9 mg/dL (0.2-1.3); BLOOD UREA NITROGEN 17 mg/dL (7-20); CALCIUM 8.2 mg/dL (8.4-10.2); CHLORIDE 103 mmol/L (98-107); GLUCOSE 94 mg/dL (75-110); POTASSIUM 4.6 mmol/L (3.6-5.0); TOTAL PROTEIN 5.8 g/dL (6.3-8.2)
[2018-09-29 07:34] LABS: CARBON DIOXIDE 31 mmol/L (22-30); SODIUM 137.5 mmol/L (137-145)
[2018-09-29 07:35] LABS: ABSOLUTE EOSINOPHILS # (AUTO) 0.1 10^3/uL (0.0-0.6); ABSOLUTE LYMPHOCYTES (AUTO) 2.3 10^3/uL (0.5-4.7); ABSOLUTE MONOCYTES (AUTO) 0.9 10^3/uL (0.1-1.4); ABSOLUTE NEUT (AUTO) 9.3 10^3/uL (1.7-8.2); BASOPHILS % (AUTO) 0.2 % (0-2); HEMATOCRIT 30.9 % (37.9-51.0); LYMPHOCYTES % (AUTO) 18.1 % (13-45); MEAN CORPUSCULAR HEMOGLOBIN 25.7 pg (27.0-33.4); MEAN CORPUSCULAR HGB CONC 32.2 g/dL (32.0-36.0); MEAN CORPUSCULAR VOLUME 80 fl (80-97); PLATELET COUNT 188 10^3/uL (150-450); RED BLOOD COUNT 3.88 10^6/uL (4.35-5.55); RED CELL DISTRIBUTION WIDTH 17.4 % (11.5-14.0); SEGMENTED NEUTROPHILS % (AUTO) 73.7 % (42-78); TOTAL CELLS COUNTED % (AUTO) 100 %; WHITE BLOOD COUNT 12.6 10^3/uL (4.0-10.5)
[2018-09-29 07:36] LABS: ANION GAP 4 (5-19)
[2018-09-29 08:16] LABS: ERYTHROCYTE SEDIMENTATION RATE 74 mm/hr (0-20)
[2018-09-29] MEDS: BUDESONIDE NEB 0.5 MG/2 ML AMPUL NEB SCH ×2 (09:04→20:22)
[2018-09-29] MEDS: FUROSEMIDE INJ/PF 40 MG/4 ML SDV IV SCH (09:38)
[2018-09-29] MEDS: METOPROLOL TARTRATE 25 MG TABLET PO SCH ×2 (09:48→22:00)
[2018-09-29] MEDS: POLYETHYLENE GLYCOL 3350 POWDER 17 GM/1 PACKET PO SCH (09:48)
[2018-09-29] MEDS: GUAIFENESIN 600 MG TABLET.SA PO SCH ×2 (09:48→22:04)
--- NOTE | 2018-09-29 10:32 | PDOC PROGRESS REPORT ---
Subjective Progress Note for:: 09/29/18 Subjective:: Patient is being treated for respiratory failure and was moved to the intensive care unit due to his symptoms. It appears that he was septic. Blood cultures yielded gram-positive cocci, Aerococcus specie as well as urine culture. Patient had infectious disease consultation by Dr. Woods who reviewed his records. She suggested treating with penicillin G preferably continuous. Workup to identify the source of the infection including possible MARCELLE is also strongly suggested by Dr. Brasher. Patient has been hemodynamically stable. He required no pressors while in the intensive care unit. He also required no invasive or noninvasive respiratory assistance although he did require oxygen. It is felt at this time that he can be transferred to the medical floor we will continue with his management he did receive 2 units of packed red blood cells due to anemia and azotemia is resolving with his BUN down from a high of 47-30 today and his hemoglobin stable at 10 09/25/18 Patient remains fairly stable. He said he feels better and denies any new symptoms. He is awaiting transfer out of the intensive care unit 09/26 No new complaints. Rectal exam done by me reveals no significant findings. I have placed a call to [facility] regarding MARCELLE and Im awaiting call back. Patient will also need PICC line for prolonged IV Pen (?duration currently unknown}. He has a Central Line in place. 09/28 MARCELLE reveals endocarditis as per my discussion with Dr. Solorio 09/29TEE reveals echodensity on the ventricular aspect of the posterior leaflet of the with a second mass on the atrial aspect of the anterior leaflet of the mitral valve. Severe mitral rotation is also present. Plan is to follow-up with Dr. Solorio on October 15 for reassessment and further referrals. Please refer to MARCELLE results in the patient's physical chart Reason For Visit: PNEUMONIA Physical Exam Vital Signs: Temp Pulse Resp BP Pulse Ox 98.3 F 99 20 95/56 L 96 09/29/18 07:57 09/29/18 07:57 09/29/18 07:57 09/29/18 07:57 09/29/18 07:57 Pulse Oximeter Continuous Start: 09/19/18 17:08 Freq: RTQ4 Status: Complete Protocol: Document 09/20/18 12:00 LDA (Rec: 09/20/18 14:03 LDA [email or web address]) Pulse Oximetry Assessment Equipment Usage Equipment Discontinued Continuous SpO2 Machine # 13 Intake & Output 09/28/18 09/29/18 09/30/18 06:59 06:59 06:59 Intake Total 774 400 100 Balance 774 400 100 Weight 94.1 kg 93.7 kg General appearance: PRESENT: no acute distress, well-developed, well-nourished Head exam: PRESENT: atraumatic, normocephalic Eye exam: PRESENT: conjunctiva pink, EOMI, PERRLA. ABSENT: scleral icterus Ear exam: PRESENT: normal external ear exam Mouth exam: PRESENT: moist, tongue midline Neck exam: ABSENT: carotid bruit, JVD, lymphadenopathy, thyromegaly Respiratory exam: PRESENT: clear to auscultation cleve, unlabored. ABSENT: rales, rhonchi, wheezes Cardiovascular exam: PRESENT: RRR, +S1, +S2, systolic murmur. ABSENT: diastolic murmur, rubs Pulses: PRESENT: normal dorsalis pedis pul Vascular exam: PRESENT: normal capillary refill GI/Abdominal exam: PRESENT: normal bowel sounds, soft. ABSENT: distended, guarding, mass, organolmegaly, rebound, tenderness Rectal exam: PRESENT: normal rectal tone. ABSENT: prostate tenderness, tenderness Extremities exam: PRESENT: full ROM. ABSENT: calf tenderness, clubbing, pedal edema Neurological exam: PRESENT: alert, awake, oriented to person, oriented to place, oriented to time, oriented to situation, CN II-XII grossly intact. ABSENT: motor sensory deficit Psychiatric exam: PRESENT: appropriate affect, normal mood. ABSENT: homicidal ideation, suicidal ideation Skin exam: PRESENT: dry, intact, warm. ABSENT: cyanosis, rash Results Laboratory Results: 09/29/18 06:50 09/29/18 06:50 09/29/18 09/29/18 06:50 06:50 WBC 12.6 H RBC 3.88 L Hgb 10.0 L Hct 30.9 L MCV 80 MCH 25.7 L MCHC 32.2 RDW 17.4 H Plt Count 188 Seg Neutrophils % 73.7 Lymphocytes % 18.1 Monocytes % 7.0 Eosinophils % 1.0 Basophils % 0.2 Absolute Neutrophils 9.3 H Absolute Lymphocytes 2.3 Absolute Monocytes 0.9 Absolute Eosinophils 0.1 Absolute Basophils 0.0 Sodium 137.5 Potassium 4.6 Chloride 103 Carbon Dioxide 31 H Anion Gap 4 L BUN 17 Creatinine 1.28 H Est GFR ( Amer) > 60 Est GFR (Non-Af Amer) 57 L Glucose 94 Calcium 8.2 L Magnesium 2.5 H Total Bilirubin 0.9 AST 29 ALT 37 Alkaline Phosphatase 67 C-Reactive Protein 59.0 H Total Protein 5.8 L Albumin 2.9 L 09/21/18 09/21/18 09/22/18 09:15 18:49 00:12 Troponin I 0.118 0.095 0.078 NT-Pro-B Natriuret Pep 5710 H 09/22/18 09/27/18 05:48 05:30 Troponin I NT-Pro-B Natriuret Pep 7100 H 1120 H Impressions: KUB X-Ray 09/19/18 09:45 IMPRESSION: NO RADIOGRAPHIC EVIDENCE FOR ACUTE ABDOMINAL DISEASE. Chest/Abdomen CTA 09/23/18 00:00 IMPRESSION: Mild persistent alveolar and interstitial pulmonary edema with trace pleural fluid. No CT angio evidence of acute pulmonary emboli. Renal Ultrasound 09/24/18 00:00 IMPRESSION: Normal bilateral renal ultrasound. Chest X-Ray 09/24/18 06:00 IMPRESSION: No significant change. Guidance Fluoroscopy 09/27/18 00:00 IMPRESSION: SUCCESSFUL PLACEMENT OF A 5 FR DUAL LUMEN 37 CM PICC IN THE RIGHT BASILIC VEIN. Interventional Vascular Procedure 09/27/18 00:00 IMPRESSION: SUCCESSFUL PLACEMENT OF A 5 FR DUAL LUMEN 37 CM PICC IN THE RIGHT BASILIC VEIN. PICC Line Insertion 09/27/18 00:00 IMPRESSION: SUCCESSFUL PLACEMENT OF A 5 FR DUAL LUMEN 37 CM PICC IN THE RIGHT BASILIC VEIN. Abdomen CT 09/28/18 00:00 IMPRESSION: No evidence of acute intra-abdominal infectious/inflammatory process. Assessment & Plan - Time Time Spent with patient: 15-24 minutes Medications reviewed and adjusted accordingly: Yes Anticipated discharge: Home with Homehealth - Inpatient Certification Based on my medical assessment, after consideration of the patient's comorbidities, presenting symptoms, or acuity I expect that the services needed warrant INPATIENT care.: Yes Medical Necessity: Need for IV Antibiotics, Risk of Complication if Not Cared For in Hospital - Plan Summary Plan Summary: 1. Aerococcus Bacteremia-Cont penicillin G as suggested by infectious disease. Repeat blood culture is negative. 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 PICC Line has been inserted, he will need antibiotics for 6 weeks starting from 09/26 thru 11/07. CT abdomen and pelvis and renal ultrasound negative and rectal exam is benign, he may need colonoscopy and further urology eval as outpatient to look for further potential sources of bacteremia Discussed patient's need for IV antibiotics with case management and this will need to be followed up tomorrow as patient can be discharged home once home IV antibiotics arranged 2.Acute respiratory failure with hypoxia - continue to wean off oxygen as tolerated 3. Type 2 diabetes mellitus likely worsened his blood sugar with the stress and acute infection. We will continue to adjust insulin as needed 4. Hematochezia currently no need for further transfusion but will continue to monitor H&H. Rectal exam was negative 5. Anemia due to chronic blood loss status post blood transfusion 6. Hypertension - stable 7. Dyslipidemia currently on simvastatin 8. Cystitis with urine culture yielding Aerococcus.
[2018-09-29] MEDS: BENZOCAINE/MENTHOL SORE THROAT LOZENGE BUCCAL PRN (15:41)
[2018-09-29] MEDS: INSULIN GLARGINE,HUM.REC.ANLOG 300 UNIT/3 ML INSULN.PEN SUBCUT SCH (21:58)
[2018-09-29] MEDS: LOSARTAN POTASSIUM 25 MG TABLET PO SCH (22:00)
[2018-09-29] MEDS: SIMVASTATIN 40 MG TABLET PO SCH (22:04)
[2018-09-30] MEDS: PENICILLIN G POTASSIUM 5,000,000 UNIT in DEXTROSE 5%-WATER 100 ML IV SCH ×5 (00:48→23:13)
[2018-09-30] MEDS: IPRATROPIUM BROMIDE 0.02% NEB 0.5 MG/2.5 ML AMPUL NEB SCH ×4 (02:32→19:52)
[2018-09-30] MEDS: LANSOPRAZOLE 30 MG TAB.RAP.DR PO SCH (06:02)
[2018-09-30] MEDS: BUDESONIDE NEB 0.5 MG/2 ML AMPUL NEB SCH ×2 (08:02→19:52)
[2018-09-30] MEDS: ACETAMINOPHEN 325 MG TABLET PO PRN (08:29)
--- NOTE | 2018-09-30 09:48 | PDOC PROGRESS REPORT ---
Subjective Progress Note for:: 09/30/18 Subjective:: Patient is being treated for respiratory failure and was moved to the intensive care unit due to his symptoms. It appears that he was septic. Blood cultures yielded gram-positive cocci, Aerococcus specie as well as urine culture. Patient had infectious disease consultation by Dr. Woods who reviewed his records. She suggested treating with penicillin G preferably continuous. Workup to identify the source of the infection including possible MARCELLE is also strongly suggested by Dr. Brasher. Patient has been hemodynamically stable. He required no pressors while in the intensive care unit. He also required no invasive or noninvasive respiratory assistance although he did require oxygen. It is felt at this time that he can be transferred to the medical floor we will continue with his management he did receive 2 units of packed red blood cells due to anemia and azotemia is resolving with his BUN down from a high of 47-30 today and his hemoglobin stable at 10 09/25/18 Patient remains fairly stable. He said he feels better and denies any new symptoms. He is awaiting transfer out of the intensive care unit 09/26 No new complaints. Rectal exam done by me reveals no significant findings. I have placed a call to [facility] regarding MARCELLE and Im awaiting call back. Patient will also need PICC line for prolonged IV Pen (?duration currently unknown}. He has a Central Line in place. 09/28 MARCELLE reveals endocarditis as per my discussion with Dr. Solorio 09/29TEE reveals echodensity on the ventricular aspect of the posterior leaflet of the with a second mass on the atrial aspect of the anterior leaflet of the mitral valve. Severe mitral rotation is also present. 09/30/2018 no acute events in the last 24 hours. Family is requesting physical therapy consult. Patient is afebrile. He is to continue the IV antibiotic therapy for duration of 6 weeks. Reason For Visit: PNEUMONIA Physical Exam Vital Signs: Temp Pulse Resp BP Pulse Ox 98.2 F 103 H 20 114/72 96 09/30/18 07:50 09/30/18 07:50 09/30/18 07:50 09/30/18 07:50 09/30/18 07:50 Pulse Oximeter Continuous Start: 09/19/18 17:08 Freq: RTQ4 Status: Complete Protocol: Document 09/20/18 12:00 LDA (Rec: 09/20/18 14:03 LDA [email or web address]) Pulse Oximetry Assessment Equipment Usage Equipment Discontinued Continuous SpO2 Machine # 13 Intake & Output 09/29/18 09/30/18 10/01/18 06:59 06:59 06:59 Intake Total 400 400 Balance 400 400 Weight 93.7 kg 95.2 kg General appearance: PRESENT: no acute distress Head exam: PRESENT: atraumatic Eye exam: PRESENT: PERRLA Mouth exam: PRESENT: moist Teeth exam: PRESENT: poor dentation Neck exam: ABSENT: carotid bruit, JVD, lymphadenopathy, thyromegaly Respiratory exam: PRESENT: decreased breath sounds Cardiovascular exam: PRESENT: systolic murmur, tachycardia GI/Abdominal exam: PRESENT: normal bowel sounds, soft. ABSENT: distended, guarding, mass, organolmegaly, rebound, tenderness Extremities exam: PRESENT: full ROM. ABSENT: calf tenderness, clubbing, pedal edema Neurological exam: PRESENT: alert, awake, oriented to person, oriented to place, oriented to time, oriented to situation, CN II-XII grossly intact. ABSENT: motor sensory deficit Psychiatric exam: PRESENT: appropriate affect, normal mood. ABSENT: homicidal ideation, suicidal ideation Results Laboratory Results: 09/29/18 06:50 09/29/18 06:50 09/25/18 06:45 Blood Blood Culture - Final NO GROWTH IN 5 DAYS 09/25/18 06:00 Blood Blood Culture - Final NO GROWTH IN 5 DAYS 09/21/18 09/21/18 09/22/18 09:15 18:49 00:12 Troponin I 0.118 0.095 0.078 NT-Pro-B Natriuret Pep 5710 H 09/22/18 09/27/18 09/30/18 05:48 05:30 06:50 Troponin I NT-Pro-B Natriuret Pep 7100 H 1120 H 1770 H Impressions: KUB X-Ray 09/19/18 09:45 IMPRESSION: NO RADIOGRAPHIC EVIDENCE FOR ACUTE ABDOMINAL DISEASE. Chest/Abdomen CTA 09/23/18 00:00 IMPRESSION: Mild persistent alveolar and interstitial pulmonary edema with trace pleural fluid. No CT angio evidence of acute pulmonary emboli. Renal Ultrasound 09/24/18 00:00 IMPRESSION: Normal bilateral renal ultrasound. Chest X-Ray 09/24/18 06:00 IMPRESSION: No significant change. Guidance Fluoroscopy 09/27/18 00:00 IMPRESSION: SUCCESSFUL PLACEMENT OF A 5 FR DUAL LUMEN 37 CM PICC IN THE RIGHT BASILIC VEIN. Interventional Vascular Procedure 09/27/18 00:00 IMPRESSION: SUCCESSFUL PLACEMENT OF A 5 FR DUAL LUMEN 37 CM PICC IN THE RIGHT BASILIC VEIN. PICC Line Insertion 09/27/18 00:00 IMPRESSION: SUCCESSFUL PLACEMENT OF A 5 FR DUAL LUMEN 37 CM PICC IN THE RIGHT BASILIC VEIN. Abdomen CT 09/28/18 00:00 IMPRESSION: No evidence of acute intra-abdominal infectious/inflammatory process. Assessment & Plan - Diagnosis (1) Endocarditis Is this a current diagnosis for this admission?: Yes Plan: 09/30/2018-patient was admitted with fevers and ID consult was done the cultures came back positive for Aerococcus patient is on penicillin G. Patient is also had a MARCELLE at [facility]. The findings of MARCELLE is endocarditis involving the posterior leaflet and second mass on the anterior aspect of the anterior leaflet of her mitral valve. Plan is to continue the IV antibiotic therapy for a total duration of 6 weeks. Family is aware that they need to follow-up with Dr. Solorio as an outpatient once the patient is discharged. Plan is to arrange for outpatient antibiotic therapy patient has a PICC line. Temperature today is 98.2. CT abdomen and pelvis renal ultrasound are negative rectal examination is benign the plan is patient may need a colonoscopy and follow-up with urology as an outpatient to look for the sources of bacteremia. (2) Respiratory failure with hypoxia Qualifiers: Chronicity: acute Qualified Code(s): J96.01 - Acute respiratory failure with hypoxia Is this a current diagnosis for this admission?: Yes Plan: 09/30/2018 acute respiratory failure with hypoxia probably secondary to sepsis. Patient is on is on 3.5 L oxygen pulse ox is 96%. Plan is to continue the present management to assist the home oxygen requirements. (3) Diabetes mellitus, type 2 Qualifiers: Diabetes mellitus manager intermediate insulin use: without longterm use Diabetes mellitus complication status: without complication Qualified Code(s): E11.9 - Type 2 diabetes mellitus without complications Is this a current diagnosis for this admission?: Yes Plan: 09/30/2018 patient has history of type 2 diabetes mellitus the latest blood sugar is 128 plan is to continue the present management and check hemoglobin A1c. Hemoglobin A1c was done on 09/20/2018 it is 7.4. Patient is presently on Lantus 18 units at bedtime and is also on insulin sliding scale before meals and at bedtime. (4) Anemia due to chronic blood loss Is this a current diagnosis for this admission?: Yes Plan: 09/30/2018 he anemia is due to chronic blood loss status post blood transfusion during the hospital stay. His latest hemoglobin is 10.0 plan is to recheck his CBC tomorrow. (5) Hypertension Qualifiers: Hypertension type: essential hypertension Qualified Code(s): I10 - Essential (primary) hypertension Is this a current diagnosis for this admission?: Yes Plan: 09/30/2018-blood pressure today is 114/72. With heart rate 103. Patient is on losartan 50 mg p.o. daily and metoprolol 25 mg p.o. twice a day. Plan is to increase the metoprolol to 50 mg twice a day. (6) Cystitis Is this a current diagnosis for this admission?: Yes Plan: 09/30/2018 cystitis with her urine culture is positive for Aerococcus patient is presently on penicillin G. Patient is afebrile. - Time Time Spent with patient: 15-24 minutes Smoking Cessation Education: 3 to 10 minutes Medications reviewed and adjusted accordingly: Yes Anticipated discharge: Home
[2018-09-30] MEDS: FOLIC ACID 1 MG TABLET PO SCH (10:21)
[2018-09-30] MEDS: CETIRIZINE 10 MG TABLET PO SCH (10:21)
[2018-09-30] MEDS: LOSARTAN POTASSIUM 50 MG TABLET PO SCH (10:22)
[2018-09-30] MEDS: FUROSEMIDE INJ/PF 40 MG/4 ML SDV IV SCH (10:22)
[2018-09-30] MEDS: GUAIFENESIN 600 MG TABLET.SA PO SCH ×2 (10:23→22:48)
[2018-09-30] MEDS: POLYETHYLENE GLYCOL 3350 POWDER 17 GM/1 PACKET PO SCH (10:24)
[2018-09-30] MEDS: METOPROLOL TARTRATE 50 MG TABLET PO SCH ×2 (10:25→22:48)
[2018-09-30 13:18] LABS: ABSOLUTE EOSINOPHILS # (AUTO) 0.1 10^3/uL (0.0-0.6); ABSOLUTE LYMPHOCYTES (AUTO) 2.3 10^3/uL (0.5-4.7); ABSOLUTE MONOCYTES (AUTO) 0.9 10^3/uL (0.1-1.4); ABSOLUTE NEUT (AUTO) 8.1 10^3/uL (1.7-8.2); BASOPHILS % (AUTO) 0.2 % (0-2); EOSINOPHILS % (AUTO) 0.7 % (0-6); HEMATOCRIT 30.5 % (37.9-51.0); HEMOGLOBIN 9.9 g/dL (13.5-17.0); LYMPHOCYTES % (AUTO) 19.9 % (13-45); MEAN CORPUSCULAR HEMOGLOBIN 26.1 pg (27.0-33.4); MEAN CORPUSCULAR HGB CONC 32.4 g/dL (32.0-36.0); MEAN CORPUSCULAR VOLUME 81 fl (80-97); MONOCYTES % (AUTO) 7.9 % (3-13); PLATELET COUNT 217 10^3/uL (150-450); RED BLOOD COUNT 3.78 10^6/uL (4.35-5.55); RED CELL DISTRIBUTION WIDTH 17.8 % (11.5-14.0); SEGMENTED NEUTROPHILS % (AUTO) 71.3 % (42-78); TOTAL CELLS COUNTED % (AUTO) 100 %; WHITE BLOOD COUNT 11.3 10^3/uL (4.0-10.5)
[2018-09-30 13:36] LABS: ALANINE AMINOTRANSFERASE 30 U/L (21-72); ALKALINE PHOSPHATASE 62 U/L (38-126); ANION GAP 6 (5-19); ASPARTATE AMINO TRANSFERASE 22 U/L (17-59); BILIRUBIN,DIRECT 0.3 mg/dL (0.0-0.4); BLOOD UREA NITROGEN 14 mg/dL (7-20); CALCIUM 8.5 mg/dL (8.4-10.2); CARBON DIOXIDE 29 mmol/L (22-30); CHLORIDE 104 mmol/L (98-107); GLUCOSE 119 mg/dL (75-110); POTASSIUM 4.4 mmol/L (3.6-5.0); SODIUM 139.1 mmol/L (137-145)
--- NOTE | 2018-09-30 15:13 | Progress Note ---
Provider Note Provider Note: ID Consult Brief Follow Up Note Asked to review chart by Dr Nicolas and spoke with him briefly via telephone. Mr. 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 Due to the rarity of Aerococcus endocarditis, there is no guideline-based recommendation that specifically addresses best treatment. The [facility] was not able to provide susceptibilities for the Aerococcus, due to lack of standardized testing method. Most cases in the literature have been treated with a combination of a beta- lactam and a synergistic aminoglycoside for two weeks, followed by a beta-lactam for another two weeks (as is typically employed for viridans Strep endocarditis with intermediate resistance to penicillin). However, Mr Varghese has baseline renal dysfunction and Aerococcus urinae isolates reported in the literature appear to be highly penicillin susceptible, suggesting the increased nephrotoxicity risk of an aminoglycose is not clearly justified. Although ceftriaxone would offer a more convenient once daily IV infusion option, penicillin appears to be the drug of choice, and MICs for ceftriaxone have been more variable. For the patient's isolate, there is a lack of information about whether Rocephin would be just as effective as penicillin. 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 Continue IV pe nicillin G at current dose while in patient. - As an outpatient, for home IV antibioic therapy, consider whether IV penicillin G could be given as a continuous infusion of 18 million units every 24h via a pump. Penicillin G is stable as a continuous infusion, and many pharmacies that supply home IV antibiotics should be able to have this delivered via a pump. Although it may be more expensive than a simple IV infusion, trying to give IV penicillin every 4-6h dosing is fatiguing and unrealistic at home. Giving IV penicillin as a continuous infusion also takes advantage of time- dependent killing of microbes of beta-lactam antibiotics. - Recommend continuing IV penicillin G 18 million units as a continuous infusion (or current dose while inpatient) for a total of 4 weeks from date of negative blood cultures. Anticipated end date is October 23, 2018. While on IV penicillin, monitor CBC and CMP once weekly. Once IV penicillin G is completed, PICC should be removed unless otherwise indicated. Armin Brasher MD [facility] Infectious Diseases pager [phone]
[2018-09-30] MEDS ORDERED: ZOLPIDEM TARTRATE 5 MG TABLET PO SCH (22:00)
[2018-09-30] MEDS: SIMVASTATIN 40 MG TABLET PO SCH (22:49)
[2018-09-30] MEDS: INSULIN GLARGINE,HUM.REC.ANLOG 300 UNIT/3 ML INSULN.PEN SUBCUT SCH (22:49)
[2018-10-01] MEDS: IPRATROPIUM BROMIDE 0.02% NEB 0.5 MG/2.5 ML AMPUL NEB SCH ×2 (01:30→08:05)
[2018-10-01] MEDS: LANSOPRAZOLE 30 MG TAB.RAP.DR PO SCH (06:42)
[2018-10-01] MEDS: PENICILLIN G POTASSIUM 5,000,000 UNIT in DEXTROSE 5%-WATER 100 ML IV SCH ×2 (06:42→11:35)
[2018-10-01] MEDS: BUDESONIDE NEB 0.5 MG/2 ML AMPUL NEB SCH (08:05)
[2018-10-01 08:57] LABS: HEMATOCRIT 31.5 % (37.9-51.0); HEMOGLOBIN 9.9 g/dL (13.5-17.0); MEAN CORPUSCULAR HEMOGLOBIN 25.6 pg (27.0-33.4); MEAN CORPUSCULAR HGB CONC 31.6 g/dL (32.0-36.0); MEAN CORPUSCULAR VOLUME 81 fl (80-97); PLATELET COUNT 261 10^3/uL (150-450); RED BLOOD COUNT 3.87 10^6/uL (4.35-5.55); RED CELL DISTRIBUTION WIDTH 17.9 % (11.5-14.0); WHITE BLOOD COUNT 14.3 10^3/uL (4.0-10.5)
[2018-10-01 09:23] LABS: ALANINE AMINOTRANSFERASE 28 U/L (21-72); ALKALINE PHOSPHATASE 59 U/L (38-126); ANION GAP 6 (5-19); ASPARTATE AMINO TRANSFERASE 21 U/L (17-59); BILIRUBIN,DIRECT 0.3 mg/dL (0.0-0.4); BILIRUBIN,TOTAL 0.9 mg/dL (0.2-1.3); BLOOD UREA NITROGEN 14 mg/dL (7-20); CALCIUM 8.7 mg/dL (8.4-10.2); CARBON DIOXIDE 29 mmol/L (22-30); CHLORIDE 105 mmol/L (98-107); GLUCOSE 105 mg/dL (75-110); POTASSIUM 4.7 mmol/L (3.6-5.0); SODIUM 139.7 mmol/L (137-145); TOTAL PROTEIN 6.1 g/dL (6.3-8.2)
[2018-10-01] MEDS: METOPROLOL TARTRATE 50 MG TABLET PO SCH (10:43)
[2018-10-01] MEDS: GUAIFENESIN 600 MG TABLET.SA PO SCH (10:43)
[2018-10-01] MEDS: CETIRIZINE 10 MG TABLET PO SCH (10:44)
[2018-10-01] MEDS: FUROSEMIDE INJ/PF 40 MG/4 ML SDV IV SCH (10:44)
[2018-10-01] MEDS: FOLIC ACID 1 MG TABLET PO SCH (10:44)
[2018-10-01] MEDS: LOSARTAN POTASSIUM 50 MG TABLET PO SCH (10:44)
[2018-10-01] MEDS: POLYETHYLENE GLYCOL 3350 POWDER 17 GM/1 PACKET PO SCH (10:45)
--- NOTE | 2018-10-01 11:46 | PDOC DISCHARGE SUMMARY ---
General - Admit/Disc Date/PCP Admission Date/Primary Care Provider: 09/19/18 16:03 KATERINE NIEVES PA-C Discharge Date: 10/01/12 - Discharge Diagnosis (1) Endocarditis Is this a current diagnosis for this admission?: Yes Summary: 09/30/2018-patient was admitted with fevers and ID consult was done the cultures came back positive for Aerococcus patient is on penicillin G. Patient is also had a MARCELLE at [facility]. The findings of MARCELLE is endocarditis involving the posterior leaflet and second mass on the anterior aspect of the anterior leaflet of the mitral valve. Plan is to continue the IV antibiotic therapy for a total duration of 6 weeks. Family is aware that they need to follow-up with Dr. Solorio as an outpatient once the patient is discharged. Plan is to arrange for outpatient antibiotic therapy patient has a PICC line. Temperature today is 98.2. CT abdomen and pelvis renal ultrasound are negative rectal examination is benign the plan is patient may need a colonoscopy and follow-up with urology as an outpatient to look for the sources of bacteremia. 10/01/2018-patient is afebrile. No acute events in the last 24 hours. He is getting penicillin G 500,000 units every 6 hours while he was in the hospital. I discussed the discharge medications with Dr. Brasher her recommendation is patient is to go home on antibiotic infusion. She also recommended penicillin G 18,000,000 units every 24 hours as an infusion for 4 weeks from the day of cultures that are negative. And patient is to have CBC CMP on weekly basis. Patient agreed to go to his primary care physician every week for the lab work. Once the patient completed the antibiotic course plan is to remove the PICC line as an outpatient. As mentioned above patient came in with fevers ID consult was done strongly recommended a MARCELLE. MARCELLE was done in [facility] found to have endocarditis involving the posterior leaflet and second mass on the anterior aspect of the anterior leaflet of the mitral valve. The plan is to give her antibiotic therapy for a total duration of 6 weeks. Today we got the approval for the IV infusion at home from the insurance company. Patient and family is eager to go home today. They are aware of the need for the patient to follow-up with Dr. Solorio as an outpatient on October 15. Blood cultures are showing Aerococcus urinae. (2) Respiratory failure with hypoxia Is this a current diagnosis for this admission?: Yes Summary: 09/30/2018 acute respiratory failure with hypoxia probably secondary to sepsis. Patient is on is on 3.5 L oxygen pulse ox is 96%. Plan is to continue the p resent management to assist the home oxygen requirements. 10/01/2018-acute respiratory failure with hypoxia probably secondary to sepsis. Pulse ox on 3 L today is 95%. Patient is not in distress. Alert and awake communicating well. (3) Diabetes mellitus, type 2 Is this a current diagnosis for this admission?: Yes Summary: 09/30/2018 patient has history of type 2 diabetes mellitus the latest blood sugar is 128 plan is to continue the present management and check hemoglobin A1c. Hemoglobin A1c was done on 09/20/2018 it is 7.4. Patient is presently on Lantus 18 units at bedtime and is also on insulin sliding scale before meals and at bedtime. 10/01/2018-patient's blood sugars today are 105. Hemoglobin A1c is 7.4. He was on metformin at home advised him to continue metformin. Also was strongly advised to follow-up with his primary care physician for further management. (4) Anemia due to chronic blood loss Is this a current diagnosis for this admission?: Yes Summary: 09/30/2018 he anemia is due to chronic blood loss status post blood transfusion during the hospital stay. His latest hemoglobin is 10.0 plan is to recheck his CBC tomorrow. 10/01/2018 hemoglobin is 9.9 today. Stable. Patient received blood transfusion during the hospital stay. Anemia probably secondary to chronic blood loss. Patient may need outpatient colonoscopy for further management. (5) Hypertension Is this a current diagnosis for this admission?: Yes Summary: 09/30/2018-blood pressure today is 114/72. With heart rate 103. Patient is on losartan 50 mg p.o. daily and metoprolol 25 mg p.o. twice a day. Plan is to increase the metoprolol to 50 mg twice a day. 10/01/2018-blood pressure today is 106/65. Patient is asymptomatic. Heart rate is 103. Patient is on losartan 50 mg p.o. daily metoprolol 25 mg p.o. twice a day prescriptions were written for those medications. Patient is advised to follow-up with Primary care physician for further management of the blood pressure. (6) Cystitis Is this a current diagnosis for this admission?: Yes Summary: 09/30/2018 cystitis with her urine culture is positive for Aerococcus patient is presently on penicillin G. Patient is afebrile. 10/01/2018-urine culture is positive for Aerococcus. She is going home on penicillin G continuous infusion. - Additional Information Resuscitation Status: Full Code Discharge Diet: Diabetic Discharge Activity: Activity As Tolerated Prescriptions: Losartan Potassium [Cozaar 50 mg Tablet] 50 mg PO DAILY #30 tablet Metoprolol Tartrate [Lopressor 50 mg Tablet] 50 mg PO Q12 #60 tablet Home Medications: Cetirizine HCl [Zyrtec 10 mg Tablet] 10 mg PO DAILY 09/19/18 Folic Acid [Folvite 1 mg Tablet] 1 mg PO DAILY 09/19/18 Metformin HCl [Glucophage 500 mg Tablet] 1,000 mg PO BIDBS 09/19/18 Omeprazole 20 mg PO DAILY 09/19/18 Simvastatin [Zocor 40 mg Tablet] 40 mg PO QHS 09/19/18 Losartan Potassium [Cozaar 50 mg Tablet] 50 mg PO DAILY #30 tablet 10/01/18 Metoprolol Tartrate [Lopressor 50 mg Tablet] 50 mg PO Q12 #60 tablet 10/01/18 History of Present Illness History of Present Illness: MINERVA MANUEL is a 63 year old male who has been feeling progressively worse over the last 3-4 days. He has been feeling poorly on day and off over the last several weeks. Who developed what he felt might of been a viral respiratory infection. He would take some cold medicine. It would improve. Over the last 2-3 days he has noticed a fever, shaking chills, markedly decreased appetite and decreased energy levels. He typically does not complain and does not like to go to the doctor's office. In addition, he is due for a colonoscopy. He has been noticing blood in his stool. He was Hemoccult positive in the emergency department. Despite 2 L of fluid and a dose of Rocephin, the patient is not feeling any better. He remains tachycardic. His blood pressure was low and he did not take his medications today. His lactic acid was normal. He was referred for admission as he did not improve enough with the above interventions to return home. Physical Exam Vital Signs: Temp Pulse Resp BP Pulse Ox 98.7 F 103 H 18 106/65 95 10/01/18 07:52 10/01/18 08:07 10/01/18 08:07 10/01/18 07:52 10/01/18 08:07 Pulse Oximeter Continuous Start: 09/19/18 17:08 Freq: RTQ4 Status: Complete Protocol: Document 09/20/18 12:00 LDA (Rec: 09/20/18 14:03 LDA [email or web address]) Pulse Oximetry Assessment Equipment Usage Equipment Discontinued Continuous SpO2 Machine # 13 Intake & Output 09/30/18 10/01/18 10/02/18 06:59 06:59 06:59 Intake Total 400 400 100 Balance 400 400 100 Weight 95.2 kg 93 kg General appearance: PRESENT: no acute distress Head exam: PRESENT: atraumatic Eye exam: PRESENT: PERRLA Mouth exam: PRESENT: moist, tongue midline Neck exam: ABSENT: carotid bruit, JVD, lymphadenopathy, thyromegaly Respiratory exam: PRESENT: decreased breath sounds Cardiovascular exam: PRESENT: tachycardia Pulses: PRESENT: normal dorsalis pedis pul GI/Abdominal exam: PRESENT: normal bowel sounds, soft. ABSENT: distended, guarding, mass, organolmegaly, rebound, tenderness Extremities exam: PRESENT: full ROM. ABSENT: calf tenderness, clubbing, pedal edema Neurological exam: PRESENT: alert, awake, oriented to person, oriented to place, oriented to time, oriented to situation, CN II-XII grossly intact. ABSENT: motor sensory deficit Psychiatric exam: PRESENT: appropriate affect, normal mood. ABSENT: homicidal i deation, suicidal ideation Results Laboratory Results: 10/01/18 08:26 10/01/18 08:26 09/30/18 09/30/18 10/01/18 12:50 12:50 06:45 WBC 11.3 H RBC 3.78 L Hgb 9.9 L Hct 30.5 L MCV 81 MCH 26.1 L MCHC 32.4 RDW 17.8 H Plt Count 217 Seg Neutrophils % 71.3 Lymphocytes % 19.9 Monocytes % 7.9 Eosinophils % 0.7 Basophils % 0.2 Absolute Neutrophils 8.1 Absolute Lymphocytes 2.3 Absolute Monocytes 0.9 Absolute Eosinophils 0.1 Absolute Basophils 0.0 Sodium 139.1 Potassium 4.4 Chloride 104 Carbon Dioxide 29 Anion Gap 6 BUN 14 Creatinine 1.42 H Est GFR ( Amer) > 60 Est GFR (Non-Af Amer) 50 L Glucose 119 H Calcium 8.5 Magnesium 2.6 H Total Bilirubin 1.0 AST 22 ALT 30 Alkaline Phosphatase 62 Total Protein 6.0 L Albumin 3.0 L 10/01/18 10/01/18 10/01/18 06:45 08:26 08:26 WBC 14.3 H RBC 3.87 L Hgb 9.9 L Hct 31.5 L MCV 81 MCH 25.6 L MCHC 31.6 L RDW 17.9 H Plt Count 261 Seg Neutrophils % Lymphocytes % Monocytes % Eosinophils % Basophils % Absolute Neutrophils Absolute Lymphocytes Absolute Monocytes Absolute Eosinophils Absolute Basophils Sodium Cancelled 139.7 Potassium Cancelled 4.7 Chloride Cancelled 105 Carbon Dioxide Cancelled 29 Anion Gap Cancelled 6 BUN Cancelled 14 Creatinine Cancelled 1.43 H Est GFR ( Amer) Cancelled > 60 Est GFR (Non-Af Amer) Cancelled 50 L Glucose Cancelled 105 Calcium Cancelled 8.7 Magnesium Cancelled 2.6 H Total Bilirubin Cancelled 0.9 AST Cancelled 21 ALT Cancelled 28 Alkaline Phosphatase Cancelled 59 Total Protein Cancelled 6.1 L Albumin Cancelled 3.0 L 09/25/18 06:45 Blood Blood Culture - Final NO GROWTH IN 5 DAYS 09/21/18 09/21/18 09/22/18 09:15 18:49 00:12 Troponin I 0.118 0.095 0.078 NT-Pro-B Natriuret Pep 5710 H 09/22/18 09/27/18 09/30/18 05:48 05:30 06:50 Troponin I NT-Pro-B Natriuret Pep 7100 H 1120 H 1770 H Impressions: KUB X-Ray 09/19/18 09:45 IMPRESSION: NO RADIOGRAPHIC EVIDENCE FOR ACUTE ABDOMINAL DISEASE. Chest/Abdomen CTA 09/23/18 00:00 IMPRESSION: Mild persistent alveolar and interstitial pulmonary edema with trace pleural fluid. No CT angio evidence of acute pulmonary emboli. Renal Ultrasound 09/24/18 00:00 IMPRESSION: Normal bilateral renal ultrasound. Chest X-Ray 09/24/18 06:00 IMPRESSION: No significant change. Guidance Fluoroscopy 09/27/18 00:00 IMPRESSION: SUCCESSFUL PLACEMENT OF A 5 FR DUAL LUMEN 37 CM PICC IN THE RIGHT BASILIC VEIN. Interventional Vascular Procedure 09/27/18 00:00 IMPRESSION: SUCCESSFUL PLACEMENT OF A 5 FR DUAL LUMEN 37 CM PICC IN THE RIGHT BASILIC VEIN. PICC Line Insertion 09/27/18 00:00 IMPRESSION: SUCCESSFUL PLACEMENT OF A 5 FR DUAL LUMEN 37 CM PICC IN THE RIGHT BASILIC VEIN. Abdomen CT 09/28/18 00:00 IMPRESSION: No evidence of acute intra-abdominal infectious/inflammatory process. Qualifiers - * PATIENT BEING DISCHARGED WITH ANY OF THE FOLLOWING DIAGNOSIS: No VTE patient discharged on overlapping Therapy?: Yes
[2018-10-01 12:52] VITALS: BP 104/65
== END 2018-10-01 13:51 | disposition home health service (06) | DRG 689 ==
LOC: ER 09:10 → EH 16:03 → 3S 18:22 → ICU 09-20 12:29 → 3W 09-25 12:38
PROVIDERS: ADMIT Internal Medicine; ATTEND Internal Medicine
PROC: 3E0F73Z Introduction of Anti-inflammatory into Respiratory Tract, Via Natural or Artificial Opening (ICD-10-PCS; principal; 2018-09-19)
PROC: 02H633Z Insertion of Infusion Device into Right Atrium, Percutaneous Approach (ICD-10-PCS; 2018-09-20)
PROC: 30233N1 Transfusion of Nonautologous Red Blood Cells into Peripheral Vein, Percutaneous Approach (ICD-10-PCS; 2018-09-22)
PROC: 02HV33Z Insertion of Infusion Device into Superior Vena Cava, Percutaneous Approach (ICD-10-PCS; 2018-09-27)
PROC: B5181ZA Fluoroscopy of Superior Vena Cava using Low Osmolar Contrast, Guidance (ICD-10-PCS; 2018-09-27)
PROC: B548ZZA Ultrasonography of Superior Vena Cava, Guidance (ICD-10-PCS; 2018-09-27)
DX: N30.00 Acute cystitis without hematuria (principal); J96.01 Acute respiratory failure with hypoxia; I33.0 Acute and subacute infective endocarditis; K92.1 Melena; R78.81 Bacteremia; E11.9 Type 2 diabetes mellitus without complications; D50.0 Iron deficiency anemia secondary to blood loss (chronic); I10 Essential (primary) hypertension; B96.89 Other specified bacterial agents as the cause of diseases classified elsewhere; E78.00 Pure hypercholesterolemia, unspecified; K21.9 Gastro-esophageal reflux disease without esophagitis; F17.210 Nicotine dependence, cigarettes, uncomplicated; Z77.22 Contact with and (suspected) exposure to environmental tobacco smoke (acute) (chronic); Z79.84 Long term (current) use of oral hypoglycemic drugs; Z79.899 Other long term (current) drug therapy; Z82.49 Family history of ischemic heart disease and other diseases of the circulatory system; Z80.9 Family history of malignant neoplasm, unspecified
CPT/HCPCS: 36415; 36430; 36569; 36600; 71045; 71275; 74018; 74160; 76775; 76937; 77001; 80048; 80053; 80202; 81001; 82040; 82607; 82728; 82746; 82803; 82962; 83036; 83540; 83550; 83605; 83735; 83880; 84100; 84153; 84484; 85025; 85027; 85045; 85379; 85610; 85652; 86140; 86603; 86701; 86850; 86900; 86901; 86920; 87040; 87070; 87077; 87086; 87088; 87205; 87804; 93005; 93010; 93306; 94640; 94667; 94762; 96361; 96365; 99285; C1751; C1769; J0696; J1335; J1642; J1650; J1815; J1940; J1956; J2405; J2540; J2920; J2930; J2997; J3370; J3490; J7030; J7040; J7060; J7120; J7604; J7620; P9016

== ENCOUNTER 2018-10-09 16:07 | Inpatient (IN) | payer BC ==
[2018-10-09 16:48] LABS: ABSOLUTE EOSINOPHILS # (AUTO) 0.1 10^3/uL (0.0-0.6); ABSOLUTE LYMPHOCYTES (AUTO) 2.9 10^3/uL (0.5-4.7); ABSOLUTE MONOCYTES (AUTO) 0.6 10^3/uL (0.1-1.4); ABSOLUTE NEUT (AUTO) 4.6 10^3/uL (1.7-8.2); BASOPHILS % (AUTO) 0.6 % (0-2); EOSINOPHILS % (AUTO) 1.7 % (0-6); HEMATOCRIT 27.6 % (37.9-51.0); HEMOGLOBIN 8.9 g/dL (13.5-17.0); LYMPHOCYTES % (AUTO) 34.9 % (13-45); MEAN CORPUSCULAR HGB CONC 32.3 g/dL (32.0-36.0); MEAN CORPUSCULAR VOLUME 84 fl (80-97); MONOCYTES % (AUTO) 7.7 % (3-13); PLATELET COUNT 258 10^3/uL (150-450); RED CELL DISTRIBUTION WIDTH 19.7 % (11.5-14.0); SEGMENTED NEUTROPHILS % (AUTO) 55.1 % (42-78); TOTAL CELLS COUNTED % (AUTO) 100 %; WHITE BLOOD COUNT 8.3 10^3/uL (4.0-10.5)
--- NOTE | 2018-10-09 16:48 | RADIOLOGY REPORT (SQ) ---
EXAM DESCRIPTION: CHEST SINGLE VIEW COMPLETED DATE/TIME: 10/09/2018 4:30 pm REASON FOR STUDY: bed 11 sepsis protocol COMPARISON: None. EXAM PARAMETERS: NUMBER OF VIEWS: One view. TECHNIQUE: Single frontal radiographic view of the chest acquired. RADIATION DOSE: NA LIMITATIONS: None. FINDINGS: LUNGS AND PLEURA: Small pleural effusions. No infiltrate. No mass. Pulmonary vascular c ongestion. No josiah pulmonary edema. MEDIASTINUM AND HILAR STRUCTURES: No masses. Contour normal. HEART AND VASCULAR STRUCTURES: Cardiomegaly. BONES: No acute findings. HARDWARE: PICC line on the right. OTHER: No other significant finding. IMPRESSION: Cardiomegaly with no josiah pulmonary edema. TECHNICAL DOCUMENTATION: JOB ID: [id number] [employer]- All Rights Reserved Reading location - IP/workstation name: [email or web address]
[2018-10-09 16:55] LABS: PROTHROMBIN TIME 16.8 SEC (11.4-15.4)
[2018-10-09 17:01] LABS: ALANINE AMINOTRANSFERASE 414 U/L (21-72); ALKALINE PHOSPHATASE 249 U/L (38-126); ANION GAP 8 (5-19); ASPARTATE AMINO TRANSFERASE 404 U/L (17-59); BILIRUBIN,DIRECT 0.5 mg/dL (0.0-0.4); BILIRUBIN,TOTAL 0.7 mg/dL (0.2-1.3); BLOOD UREA NITROGEN 27 mg/dL (7-20); CALCIUM 8.5 mg/dL (8.4-10.2); CARBON DIOXIDE 26 mmol/L (22-30); CHLORIDE 106 mmol/L (98-107); GLUCOSE 105 mg/dL (75-110); POTASSIUM 4.9 mmol/L (3.6-5.0); SODIUM 139.5 mmol/L (137-145); TOTAL PROTEIN 5.9 g/dL (6.3-8.2)
[2018-10-09] MEDS ORDERED: PENICILLIN G-K 5 MILLION UNIT VIAL IV ONE (17:12)
[2018-10-09 17:13] LABS: VENOUS BLOOD BASE EXCESS -1.3 mmol/L; VENOUS BLOOD HCO3 24.7 mmol/L (20-32); VENOUS BLOOD PCO2 47.1 mmHg (35-63); VENOUS BLOOD PH 7.34 (7.30-7.42)
[2018-10-09] MEDS ORDERED: PENICILLIN POTASSIUM IV PRN (17:56)
[2018-10-09] MEDS ORDERED: NORMAL SALINE IV PRN (17:56)
[2018-10-09 18:15] LABS: CREATINE KINASE 41 U/L (55-170)
[2018-10-09 18:29] LABS: NT PRO BNP 5790 pg/mL (5-900)
[2018-10-09 18:30] LABS: TROPONIN I < 0.012 ng/mL
--- NOTE | 2018-10-09 18:52 | EKG REPORT ---
SEVERITY:- ABNORMAL ECG - SINUS RHYTHM ABNORMAL T, CONSIDER ISCHEMIA, ANTERIOR LEADS : Confirmed by: Issa Levin MD 09-Oct-2018 18:51:42
[2018-10-09 20:58] LABS: AMORPHOUS SEDIMENT,URINE TRACE /HPF; APPEARANCE,URINE SLIGHTLY-CLOUDY; BILIRUBIN,URINE NEGATIVE (NEGATIVE); COLOR,URINE YELLOW; GLUCOSE, URINE NEGATIVE (NEGATIVE); KETONES,URINE NEGATIVE (NEGATIVE); LEUKOCYTE ESTERASE,URINE NEGATIVE (NEGATIVE); NITRITE,URINE NEGATIVE (NEGATIVE); PROTEIN,URINE NEGATIVE (NEGATIVE); URINE SPECIFIC GRAVITY 1.023
[2018-10-09] MEDS ORDERED: MAG HYDROX/AL HYDROX/SIMETH SUSP 30 ML UDCUP PO PRN (22:38)
[2018-10-09] MEDS ORDERED: MAGNESIUM HYDROXIDE SUSP 30 ML UDCUP PO PRN (22:38)
[2018-10-09] MEDS ORDERED: LEVALBUTEROL HCL NEB 1.25 MG/3 ML AMPUL NEB PRN (22:38)
[2018-10-09] MEDS ORDERED: DOBUTAMINE HCL/D5W 500 MG/250 ML RTUINJ IV PRN (22:38)
[2018-10-09] MEDS ORDERED: ACETAMINOPHEN 325 MG TABLET PO PRN (22:38)
[2018-10-09] MEDS ORDERED: DOPAMINE HCL/DEXTROSE 5%-WATER 800 MG/250 ML RTUINJ IV PRN (22:38)
[2018-10-09] MEDS ORDERED: HEPARIN SOD (PORCINE) 5,000 UNIT/ML 1 ML SYRINGE SUBCUT ONE (23:00)
[2018-10-10 00:12] LABS: CREATINE KINASE MB 0.29 ng/mL (<4.55)
[2018-10-10] MEDS ORDERED: ALTEPLASE INJ 2 MG VIAL (CATH CLEARANCE) IV ONE (00:14)
[2018-10-10 00:17] LABS: TROPONIN I < 0.012 ng/mL
[2018-10-10] MEDS ORDERED: PENICILLIN G POTASSIUM 5,000,000 UNIT in DEXTROSE 5%-WATER 100 ML IV SCH ×2 (02:00→08:00)
[2018-10-10] MEDS ORDERED: PENICILLIN G-K 5 MILLION UNIT VIAL ONE (02:49)
--- NOTE | 2018-10-10 05:37 | PDOC H&P ---
History of Present Illness Admission Date/PCP: 10/09/18 22:58 KIKI NAVARRO MD Patient complains of: Shortness of breath and fatigue History of Present Illness: MINERVA MANUEL is a 63 year old male with a past medical history of UTI bacteremia followed by persistent Aerococcus positive blood culture followed by transesophageal echocardiogram obtained at [facility]. Finding severe mitral regurgitation and a 1.1 cm x 0.6 cm mass of the posterior leaflet. He was started on 500,000 units every 24 hours of penicillin G via PICC line from September 30 - October 09. Over the last 48 hours he has had exceptional fatigue and shortness of breath prompting reevaluation the emergency room where he is found to have hypotension, shock liver and acute on chronic renal failure. [facility] and [facility] are on diversion and unable to accept him in transfer. He is referred to the hospitalist for admission. I have discussed the case with Dr. Navas following his evaluation recommending ICU admission with dobutamine and dopamine pending bed availability and transfer. Patient's family is at bedside who understand the gravity of condition and limited local resources available. Past Medical History Cardiac Medical History: Reports: Hyperlipidema, Hypertension Endocrine Medical History: Reports: Diabetes Mellitus Type 2 GI Medical History: Reports: Gastroesophageal Reflux Disease Hematology: Reports: Anemia Social History Information Source: Patient Lives with: Spouse/Significant other Smoking Status: Unknown if Ever Smoked Frequency of Alcohol Use: Occasional Hx Recreational Drug Use: No Drugs: None Hx Prescription Drug Abuse: No - Advance Directive Resuscitation Status: Full Code Family History Family History: CAD, Hypertension, Malignancy Parental Family History Reviewed: Yes Children Family History Reviewed: Yes Sibling(s) Family History Reviewed.: Yes Medication/Allergy Home Medications: Cetirizine HCl [Zyrtec 10 mg Tablet] 10 mg PO DAILY 09/19/18 Folic Acid [Folvite 1 mg Tablet] 1 mg PO DAILY 09/19/18 Metformin HCl [Glucophage 500 mg Tablet] 1,000 mg PO BIDBS 09/19/18 Omeprazole 20 mg PO DAILY 09/19/18 Simvastatin [Zocor 40 mg Tablet] 40 mg PO QHS 09/19/18 Losartan Potassium [Cozaar 50 mg Tablet] 50 mg PO DAILY #30 tablet 10/01/18 Metoprolol Tartrate [Lopressor 50 mg Tablet] 50 mg PO Q12 #60 tablet 10/01/18 Allergies/Adverse Reactions: No Known Allergies Allergy (Verified 10/09/18 21:15) Review of Systems Constitutional: PRESENT: as per HPI, fatigue, weakness, weight gain Eyes: ABSENT: visual disturbances Ears: ABSENT: hearing changes Cardiovascular: PRESENT: as per HPI, dyspnea on exertion, edema, orthropnea. ABSENT: chest pain, palpitations Respiratory: PRESENT: as per HPI, dyspnea. ABSENT: cough, hemoptysis, sputum Gastrointestinal: PRESENT: bloating. ABSENT: abdominal pain, constipation, diarrhea, hematemesis, hematochezia, nausea, vomiting Genitourinary: ABSENT: dysuria, hematuria Musculoskeletal: ABSENT: joint swelling Integumentary: ABSENT: rash, wounds Neurological: ABSENT: abnormal gait, abnormal speech, confusion, dizziness, focal weakness, syncope Psychiatric: ABSENT: anxiety, depression, homidical ideation, suicidal ideation Endocrine: ABSENT: cold intolerance, heat intolerance, polydipsia, polyuria Hematologic/Lymphatic: ABSENT: easy bleeding, easy bruising Physical Exam Vital Signs: Temp Pulse Resp BP Pulse Ox 98.8 F 84 22 H 105/67 95 10/09/18 21:00 10/09/18 16:12 10/10/18 01:13 10/10/18 01:13 10/10/18 01:13 Intake & Output 10/08/18 10/09/18 10/10/18 11:59 11:59 11:59 Intake Total 97 Balance 97 Weight 94.3 kg General appearance: PRESENT: cooperative, mild distress. ABSENT: no acute distress, morbidly obese Head exam: PRESENT: atraumatic, normocephalic Eye exam: PRESENT: conjunctiva pink, EOMI, PERRLA. ABSENT: scleral icterus Ear exam: PRESENT: normal external ear exam Mouth exam: PRESENT: moist, tongue midline Neck exam: PRESENT: JVD. ABSENT: carotid bruit, lymphadenopathy, thyromegaly, tracheostomy Respiratory exam: PRESENT: accessory muscle use, crackles, symmetrical, tachypnea. ABSENT: chest wall tenderness, decreased breath sounds, rales, wheezes Cardiovascular exam: PRESENT: +S1, +S2, systolic murmur - With radiation to the back, tachycardia Pulses: PRESENT: normal dorsalis pedis pul Vascular exam: PRESENT: normal capillary refill GI/Abdominal exam: PRESENT: normal bowel sounds, soft. ABSENT: distended, guarding, mass, organolmegaly, rebound, tenderness Rectal exam: PRESENT: deferred Extremities exam: PRESENT: full ROM, +1 edema. ABSENT: calf tenderness, clubbing, pedal edema Neurological exam: PRESENT: alert, awake, oriented to person, oriented to place, oriented to time, oriented to situation, CN II-XII grossly intact. ABSENT: motor sensory deficit Psychiatric exam: PRESENT: appropriate affect, normal mood. ABSENT: homicidal ideation, suicidal ideation Skin exam: PRESENT: dry, intact, warm. ABSENT: cyanosis, rash Results Laboratory Results: 10/09/18 16:35 10/09/18 16:35 10/09/18 10/09/18 10/09/18 16:35 16:35 16:59 WBC 8.3 RBC 3.30 L Hgb 8.9 L Hct 27.6 L MCV 84 MCH 27.0 MCHC 32.3 RDW 19.7 H Plt Count 258 Seg Neutrophils % 55.1 Lymphocytes % 34.9 Monocytes % 7.7 Eosinophils % 1.7 Basophils % 0.6 Absolute Neutrophils 4.6 Absolute Lymphocytes 2.9 Absolute Monocytes 0.6 Absolute Eosinophils 0.1 Absolute Basophils 0.0 VBG pH VBG pCO2 VBG HCO3 VBG Base Excess Sodium 139.5 Potassium 4.9 Chloride 106 Carbon Dioxide 26 Anion Gap 8 BUN 27 H Creatinine 1.85 H Est GFR ( Amer) 45 L Est GFR (Non-Af Amer) 37 L Glucose 105 Lactic Acid 1.4 Calcium 8.5 Total Bilirubin 0.7 AST 404 H ALT 414 H Alkaline Phosphatase 249 H Total Protein 5.9 L Albumin 3.0 L Urine Color Urine Appearance Urine pH Ur Specific [place] Urine Protein Urine Glucose (UA) Urine Ketones Urine Blood Urine Nitrite Ur Leukocyte Esterase Urine WBC (Auto) Urine RBC (Auto) 10/09/18 10/09/18 16:59 20:40 WBC RBC Hgb Hct MCV MCH MCHC RDW Plt Count Seg Neutrophils % Lymphocytes % Monocytes % Eosinophils % Basophils % Absolute Neutrophils Absolute Lymphocytes Absolute Monocytes Absolute Eosinophils Absolute Basophils VBG pH 7.34 VBG pCO2 47.1 VBG HCO3 24.7 VBG Base Excess -1.3 Sodium Potassium Chloride Carbon Dioxide Anion Gap BUN Creatinine Est GFR ( Amer) Est GFR (Non-Af Amer) Glucose Lactic Acid Calcium Total Bilirubin AST ALT Alkaline Phosphatase Total Protein Albumin Urine Color YELLOW Urine Appearance SLIGHTLY-CLOUDY Urine pH 5.0 Ur Specific [place] 1.023 Urine Protein NEGATIVE Urine Glucose (UA) NEGATIVE Urine Ketones NEGATIVE Urine Blood NEGATIVE Urine Nitrite NEGATIVE Ur Leukocyte Esterase NEGATIVE Urine WBC (Auto) 4 Urine RBC (Auto) 1 10/09/18 10/09/18 10/09/18 16:35 16:35 23:36 Creatine Kinase 41 L 38 L CK-MB (CK-2) 0.30 Troponin I < 0.012 NT-Pro-B Natriuret Pep 5790 H 10/09/18 23:36 Creatine Kinase CK-MB (CK-2) 0.29 Troponin I < 0.012 NT-Pro-B Natriuret Pep Impressions: Chest X-Ray 10/09/18 16:10 IMPRESSION: Cardiomegaly with no josiah pulmonary edema. Assessment & Plan - Diagnosis (1) Endocarditis Is this a current diagnosis for this admission?: Yes Plan: Continue penicillin G 500,000 units every 24 hours, dobutamine and dopamine pending transfer to tertiary care with CT surgery. Cardiology consulted (2) Congestive heart failure Qualifiers: Heart failure type: other Qualified Code(s): I50.9 - Heart failure, unspecified Is this a current diagnosis for this admission?: Yes Plan: Secondary to #1 (3) Shock liver Is this a current diagnosis for this admission?: Yes Plan: Secondary to #1 (4) Acute on chronic renal failure Is this a current diagnosis for this admission?: Yes Plan: Secondary to reduced cardiac output, avoid nephrotoxic meds and doses, follow-up chemistry (5) Anemia Is this a current diagnosis for this admission?: Yes Plan: Follow-up anemia workup consider transfusion of packed red blood cells - Time Time Spent: 50 to 70 Minutes
[2018-10-10 06:00] LABS: ABSOLUTE BASOPHILS # (AUTO) 0.1 10^3/uL (0.0-0.2); ABSOLUTE EOSINOPHILS # (AUTO) 0.1 10^3/uL (0.0-0.6); ABSOLUTE LYMPHOCYTES (AUTO) 2.5 10^3/uL (0.5-4.7); ABSOLUTE MONOCYTES (AUTO) 0.5 10^3/uL (0.1-1.4); ABSOLUTE NEUT (AUTO) 4.2 10^3/uL (1.7-8.2); BASOPHILS % (AUTO) 0.8 % (0-2); EOSINOPHILS % (AUTO) 1.3 % (0-6); HEMATOCRIT 25.7 % (37.9-51.0); HEMOGLOBIN 8.5 g/dL (13.5-17.0); LYMPHOCYTES % (AUTO) 34.2 % (13-45); MEAN CORPUSCULAR HEMOGLOBIN 27.3 pg (27.0-33.4); MEAN CORPUSCULAR HGB CONC 33.1 g/dL (32.0-36.0); MEAN CORPUSCULAR VOLUME 83 fl (80-97); MONOCYTES % (AUTO) 7.1 % (3-13); PLATELET COUNT 233 10^3/uL (150-450); RED BLOOD COUNT 3.11 10^6/uL (4.35-5.55); RED CELL DISTRIBUTION WIDTH 19.9 % (11.5-14.0); SEGMENTED NEUTROPHILS % (AUTO) 56.6 % (42-78); TOTAL CELLS COUNTED % (AUTO) 100 %; WHITE BLOOD COUNT 7.4 10^3/uL (4.0-10.5)
[2018-10-10 06:14] LABS: ALANINE AMINOTRANSFERASE 362 U/L (21-72); ALBUMIN 2.6 g/dL (3.5-5.0); ALKALINE PHOSPHATASE 204 U/L (38-126); ANION GAP 9 (5-19); ASPARTATE AMINO TRANSFERASE 252 U/L (17-59); BILIRUBIN,DIRECT 0.4 mg/dL (0.0-0.4); BILIRUBIN,TOTAL 0.6 mg/dL (0.2-1.3); BLOOD UREA NITROGEN 25 mg/dL (7-20); CALCIUM 8.2 mg/dL (8.4-10.2); CARBON DIOXIDE 24 mmol/L (22-30); CHLORIDE 108 mmol/L (98-107); CREATINE KINASE 31 U/L (55-170); POTASSIUM 4.6 mmol/L (3.6-5.0); SODIUM 141.3 mmol/L (137-145); TOTAL PROTEIN 5.3 g/dL (6.3-8.2)
[2018-10-10 06:15] LABS: GLUCOSE 87 mg/dL (75-110)
[2018-10-10 06:25] LABS: CREATINE KINASE MB 0.25 ng/mL (<4.55); TROPONIN I 0.015 ng/mL
[2018-10-10] MEDS: HEPARIN SOD (PORCINE) 5,000 UNIT/ML 1 ML SYRINGE SUBCUT SCH ×2 (07:42→15:42)
[2018-10-10] MEDS: DOCUSATE SODIUM 100 MG CAPSULE PO SCH ×2 (09:35→17:03)
[2018-10-10] MEDS ORDERED: DEXTROSE 5%-WATER 250 ML with VASOPRESSIN 100 UNIT IV PRN ×2 (11:30)
[2018-10-10] MEDS ORDERED: DIGOXIN INJ 0.5 MG/2 ML AMPULE IV ONE (12:00)
[2018-10-10 14:06] LABS: CREATINE KINASE MB 0.31 ng/mL (<4.55)
[2018-10-10 14:08] LABS: TROPONIN I < 0.012 ng/mL
--- NOTE | 2018-10-10 16:35 | Progress Note ---
Provider Note Provider Note: ID Consult Note Asked to review chart by Dr Ron and spoke with him briefly via telephone. Pt not seen or examined. Mr. 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 He had MARCELLE at [facility] that showed 1.1 x 0.6 cm mass on the posterior leaflet of the mitral valve and severe mitral regurgitation. The bacteremia was detected on 09/19, he had repeat blood cultures that were negative on 09/25, and he was discharged from the hospital on 10/01/18 to continue IV penicillin G 18 million units as a continuous infusion over 24h. He returned to the hospital overnight between 10/09/18-10/10 and was admitted for complaints of 48h increased fatigue and SOB. He has no fever. He has a systolic murmur noted and 1+ edema. He was found to have hypotension requiring vasopressor support, acute liver injury and acute on chronic renal failure. NT pro BNP was 5790. U/A has only few WBCs and RBCs/hpf. Repeat blood cultures and TTE are ordered. CXR was read as showing cardiomegaly, pulmonary vascular congestion. Most recent creatinine is 1.4. 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 No MICs were able to be reported by the [facility] lab for the organism, but in the published literature isolates are highly penicillin susceptible with MICs less than or equal to 0.12. Given this, and the patient's FITZ on CKD, I would not recommend adding gentamicin for synergy. - Recommend continuing IV penicillin as a continuous infusion. Can increase the dose to 24 million units as a continuous infusion daily. - F/u bcx - If mitral regurgitation is severe enough to result in decompensated heart failure with shock, hepatic and renal congestion and hypotension, he might need transfer for cardiac surgery evaluation. Armin Brasher MD [facility] pager [phone]
[2018-10-10] MEDS ORDERED: PENICILLIN POTASSIUM IV SCH ×2 (18:00)
[2018-10-10] MEDS ORDERED: WATER IV SCH (18:00)
[2018-10-10] MEDS ORDERED: DEXTROSE 5% IV SCH (18:00)
[2018-10-10] MEDS ORDERED: NORMAL SALINE IV SCH (18:00)
--- NOTE | 2018-10-10 18:08 | PDOC TRANSFER SUMMARY ---
General Admission Date/PCP: 10/09/18 22:58 KIKI NAVARRO MD Resuscitation Status: Full Code - Transfer Diagnosis (1) Cardiogenic shock Is this a current diagnosis for this admission?: Yes (2) Congestive heart failure Is this a current diagnosis for this admission?: Yes (3) Severe mitral regurgitation Is this a current diagnosis for this admission?: Yes (4) Infective endocarditis Is this a current diagnosis for this admission?: Yes - Transfer Medications Home Medications: Furosemide [Lasix 20 mg Tablet] 20 mg PO DAILY 10/10/18 Losartan Potassium [Cozaar 50 mg Tablet] 50 mg PO DAILY 10/10/18 Metoprolol Tartrate [Lopressor 50 mg Tablet] 50 mg PO Q12 10/10/18 Ondansetron HCl [Zofran 8 mg Tablet] 8 mg PO Q12HP PRN 10/10/18 Transfer Medications: Current Medications Acetaminophen (Tylenol 325 Mg Tablet) 325 mg PO Q4HP PRN PRN Reason: FOR PAIN OR TEMP Stop: 11/08/18 22:37 Al Hydrox/Mg Hydrox/Simethicone (Maalox Plus Susp 30 Udcup) 30 ml PO Q6HP PRN PRN Reason: HEARTBURN Stop: 11/08/18 22:37 Docusate Sodium (Colace 100 Mg Capsule) 100 mg PO BID [facility] Stop: 11/09/18 09:59 Last Admin: 10/10/18 17:03 Dose: 100 mg Documented by: Heparin Sodium (Porcine) (Heparin Inj 5,000 Units/Ml 1 Ml Syringe) 5,000 unit SUBCUT Q8 [facility] Stop: 11/09/18 05:59 Last Admin: 10/10/18 15:42 Dose: 5,000 unit Documented by: Dobutamine HCl/Dextrose (Dobutrex Rtu 500 Mg-D5w 250 Ml Premixed Bag) 500 mg in 250 mls @ 0 mls/hr IV CONTINUOUS PRN; Protocol PRN Reason: THIS MED IS NOT "PRN" Stop: 11/08/18 22:37 Last Admin: 10/09/18 23:32 Dose: 6.68 mls/hr, 6.68 mls/hr Documented by: Penicillin G Potassium 18,000, (000 unit/ Sodium Chloride) 400 mls @ 16.667 mls/hr IV QPM [facility] Stop: 10/17/18 17:59 Last Admin: 10/10/18 17:28 Dose: 16.667 ml/hr, 16.67 mls/hr Documented by: Vasopressin 100 unit/ Dextrose 250 mls @ 0 mls/hr IV CONTINUOUS PRN; Protocol PRN Reason: THIS MED IS NOT "PRN" Stop: 11/09/18 11:29 Last Admin: 10/10/18 11:56 Dose: 0.03 unit/min, 4.5 mls/hr Documented by: Levalbuterol HCl (Xopenex Neb 1.25 Mg/3 Ml Ampul) 1.25 mg NEB RTQ8HP PRN PRN Reason: SHORTNESS OF BREATH Stop: 11/08/18 22:37 Magnesium Hydroxide (Milk Of Magnesia 30 Ml Udcup) 30 ml PO HSP PRN PRN Reason: FOR CONSTIPATION Stop: 11/08/18 22:37 - Allergies Allergies/Adverse Reactions: No Known Allergies Allergy (Verified 10/09/18 21:15) - Diet/Activity Discharge Diet: Cardiac Hospital Course Hospital Course: MINERVA MANUEL is a 63 year old male who was recently admitted and discharged from [facility] on 10/01/18 with infective endocarditis. He had a MARCELLE done which showed a 1.1x0.6 cm vegetation on the posterior leaflet of the mitral valve and another mass on the atrial aspect of the anterior leaflet of the mitral valve. His blood cultures grew Aerococcus. No sensitivity was done as study was unavailable here. He was discharged on IV antibiotics (Penicillin G) per ID recommendation. Patient went home but says he did not feel significantly better. He developed progressive SOB and went back to the ER last night where he was noted to be hypotensive at 70/50. He was started on dopamine and dobutamine initially. Cardiology also evaluated patient. Discussed with ID and cardio. Patient will likely need thoracic surgical intervention for decompensated heart failure and severe mitral regurgitation from infective endocarditis. Dopamine was switched to vasopressin per cardiology. Discussed with Dr. Martinez, cement car dumper at [facility] who has accepted the transfer. Physical Exam Vital Signs: Temp Pulse Resp BP Pulse Ox 97.8 F 101 H 31 H 86/76 L 99 10/10/18 14:00 10/10/18 17:04 10/10/18 17:44 10/10/18 17:44 10/10/18 17:44 Intake & Output 10/09/18 10/10/18 10/11/18 06:59 06:59 06:59 Intake Total 97 400 Output Total 400 Balance 97 0 Weight 207 lb 14.334 oz General appearance: PRESENT: no acute distress, well-developed, well-nourished Head exam: PRESENT: atraumatic, normocephalic Eye exam: PRESENT: conjunctiva pink, EOMI, PERRLA. ABSENT: scleral icterus Ear exam: PRESENT: normal external ear exam Mouth exam: PRESENT: moist, tongue midline Neck exam: ABSENT: carotid bruit, JVD, lymphadenopathy, thyromegaly Respiratory exam: PRESENT: clear to auscultation cleve. ABSENT: rales, rhonchi, wheezes Cardiovascular exam: PRESENT: diastolic murmur, RRR, systolic murmur. ABSENT: rubs Pulses: PRESENT: normal dorsalis pedis pul GI/Abdominal exam: PRESENT: normal bowel sounds, soft. ABSENT: distended, guarding, mass, organolmegaly, rebound, tenderness Rectal exam: PRESENT: deferred Neurological exam: PRESENT: alert, awake, oriented to person, oriented to place, oriented to time, oriented to situation, CN II-XII grossly intact. ABSENT: motor sensory deficit Results Laboratory Results: 10/10/18 05:35 10/10/18 05:35 10/09/18 10/10/18 10/10/18 20:40 05:35 05:35 WBC 7.4 RBC 3.11 L Hgb 8.5 L Hct 25.7 L MCV 83 MCH 27.3 MCHC 33.1 RDW 19.9 H Plt Count 233 Seg Neutrophils % 56.6 Lymphocytes % 34.2 Monocytes % 7.1 Eosinophils % 1.3 Basophils % 0.8 Absolute Neutrophils 4.2 Absolute Lymphocytes 2.5 Absolute Monocytes 0.5 Absolute Eosinophils 0.1 Absolute Basophils 0.1 Sodium 141.3 Potassium 4.6 Chloride 108 H Carbon Dioxide 24 Anion Gap 9 BUN 25 H Creatinine 1.44 H Est GFR ( Amer) > 60 Est GFR (Non-Af Amer) 50 L Glucose 87 Calcium 8.2 L Total Bilirubin 0.6 AST 252 H ALT 362 H Alkaline Phosphatase 204 H Total Protein 5.3 L Albumin 2.6 L Urine Color YELLOW Urine Appearance SLIGHTLY-CLOUDY Urine pH 5.0 Ur Specific [place] 1.023 Urine Protein NEGATIVE Urine Glucose (UA) NEGATIVE Urine Ketones NEGATIVE Urine Blood NEGATIVE Urine Nitrite NEGATIVE Ur Leukocyte Esterase NEGATIVE Urine WBC (Auto) 4 Urine RBC (Auto) 1 10/09/18 10/09/18 10/09/18 16:35 16:35 23:36 Creatine Kinase 41 L 38 L CK-MB (CK-2) 0.30 Troponin I < 0.012 NT-Pro-B Natriuret Pep 5790 H 10/09/18 10/10/18 10/10/18 23:36 05:35 05:35 Creatine Kinase 31 L CK-MB (CK-2) 0.29 0.25 Troponin I < 0.012 0.015 NT-Pro-B Natriuret Pep 10/10/18 10/10/18 13:00 13:00 Creatine Kinase 36 L CK-MB (CK-2) 0.31 Troponin I < 0.012 NT-Pro-B Natriuret Pep Impressions: Chest X-Ray 10/09/18 16:10 IMPRESSION: Cardiomegaly with no josiah pulmonary edema.
[2018-10-10] MEDS ORDERED: LORAZEPAM INJ 2 MG/1 ML VIAL ONE (18:54)
[2018-10-10 18:59] VITALS: BP 111/77
--- NOTE | 2018-10-10 22:46 | PDOC CONSULTATION ---
Consultation-Blank Consultation: CARDIOLOGY CONSULTATION by Dr. Callie Navas. The patient was seen on 130 in the emergency room, and subsequently a formal consult done on 10/10/2018 at 10 AM . Subsequently the patient was briefly seen in the evening around the time of her transfer the patient to [facility]. Earlier this evening spoke to Dr. Norris, and the cardiothoracic surgeon, at [facility] regarding the patient is endocarditis and the significant severe mitral regurgitation. And that the patient being transferred there. He states that he will consult when the patient reaches his facility. REASON FOR CONSULTATION: Patient with mitral valve endocarditis with hypotension, fatigue, shortness of breath and weakness. HISTORY OF PRESENT ILLNESS: The patient is a 63-year-old Afro-Maur[place] male, with a history of hypertension, and recently recently diagnosed with tetlin mitral valve endocarditis, who was discharged on antibiotics via PICC LINE recently, states this that since the last 48 hours has been having progressively increasing fatigue and weakness and dizziness. He also has been having shortness of breath. We do with the some episodes of PND and also some orthopnea. He denies any fever. In the emergency room the patient was slightly lethargic, with a blood pressure in the 80s systolic. I had initially advised the patient to be started on IV dobutamine infusion at 2.5 mcg/kg/min, and also to start the patient on IV dopamine at 2.5 mcg/kg/min, and to place the patient in the ICU. His antibiotics were continued. With this the blood pressure did come up, but last night/early this morning the nurse called me stating that his heart rate was in the 130s, with the patient having sinus tachycardia. At that point the patient's dopamine was discontinued. The patient was started continued on IV dobutamine. Although the patient claims that he passed urine, there is no record of his urine output. He looks much improved and his blood pressure is much improved. He denies any chest pain or discomfort. There is no palpitations. There is no syncope although this patient has been having dizziness with exertion and near syncope. There is no peripheral embolization symptoms or signs. Of note in the emergency room the patient's renal function was compromised with a GFR of 47, and also his liver function tests were elevated suggestive of hepatic congestion. The patient denies any cough or sputum production or wheezing. There is no TIA or CVA symptoms. The patient s tates that he had mild bilateral ankle edema. PAST MEDICAL HISTORY: The patient recently was admitted with UTI due to already a coccus urinary. In spite of treatment the patient continues to be bacteremic. Hence a transthoracic echocardiogram was done here at [facility] during the last admission, which showed some mild mitral regurgitation, and no definite vegetation was seen. In view of the patient's clinical symptoms highly suspicious of endocarditis the patient had a MARCELLE in the [facility] in [place]. History he showed a vegetation on the posterior mitral valve, and there was severe mitral regurgitation. His left ventricle ejection fraction was preserved. The patient was discharged home on IV antibiotics. This led to the patient coming back to the hospital with the symptoms as mentioned in history of present illness. He has a history of hypertension. He also has a history of hyperlipidemia. There is no history of NC or anginal symptoms or coronary artery disease. There is no history of palpitations or cardiac arrhythmia there is no prior history of congestive heart failure. There is no history of syncope. There is no history of prior PND orthopnea or leg edema. There is no TIA CVA symptoms. There is a history of diabetes mellitus type 2, but no thyroid disease. There is no prior history of chronic kidney disease. He has a history of GERD. He also has a history of anemia. PAST SURGICAL HISTORY: No known surgeries. FAMILY HISTORY is positive for coronary artery disease, hypertension, and malignancy. ALLERGIES: No known drug allergies. SOCIAL HISTORY: The patient is a non-smoker. There is no history of EtOH abuse. DISPOSITION: The patient is a full code. His is a surrogate healthcare decision maker. REVIEW OF SYSTEMS: HEAD: Denies headache or head injury. Has dizziness dizziness. CONSTITUTIONAL: No fever chills or rigors. Recently has developed severe generalized fatigue and weakness. EYES: No history of amblyopia. Diplopia, and no for amaurosis fugax. NOSE: No history of deviated nasal septum, no hay fever and no nosebleeds. THROAT: No history of odynophagia dysphagia no history of recurrent sore throats. MOUTH: No altered taste sensation no ulcers in the mouth no bleeding from the gums. SKIN: No history of pruritus no history of allergies discoloration of the skin, no skin cancer or eczema. There is no splinter hemorrhages in the nails. NECK: No history of neck pain,, no swelling in the neck. No goiter. LUNGS: No history of asthma COPD. No recent symptoms of upper or lower respiratory tract infection. No history of pulmonary embolism or sleep apnea. No cough or sputum production, no wheezing. No acute hemoptysis. Although no pleuritic chest pain the patient did have left sharp left-sided pain which increases on deep breathing. HEART: He has a history of hypertension, no prior history of NC or congestive heart failure or cardiac arrhythmia . Recent symptoms of PND orthopnea and ankle edema.. He has no history of syncope GI: No history of GERD symptoms. No history of jaundice. No history of fatty food intolerance. Note that the patient's liver function tests are slightly abnormal. There is no history of GI bleed. No abdominal pain. No cirrhosis of the liver. No altered bowel movements. No abdominal pain. He has decreased appetite. And also liver function tests are abnormal. Endocrine: He has a history of diabetes mellitus, but no thyroid disease. No history of polydipsia polyuria no history of heat or cold intolerance. No history of hirsutism. No history of excessive sweating. RENAL: No history of chronic kidney disease no symptoms of UTI no history of hematuria pyuria or dysuria. But the patient's GFR is reduced to 47 this admission. Musculoskeletal: Denies arthritis or collagen vascular disease. Metabolic: No history of obesity. No history of gout. He has a history of hyperlipidemia. 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 PSYCHIATRIC: No history of anxiety depression. No suicidal ideation no homicidal ideation. VASCULAR: No history of calf or buttock claudication, and no history of DVT. Hematological: No history of bleeding diathesis or clotting disorders. He has a history of anemia. PHYSICAL EXAMINATION: The patient is mildly obese. Looks slightly ill, although in no acute distress. He is well-groomed. Selected Entries 10/10/18 10:00 Temperature 98.3 F Pulse Rate 108 H Respiratory 27 H Rate Blood Pressure 98/66 L [Right Upper Arm] Blood Pressure 76 Mean [Right Upper Arm] Blood Pressure Supine Position [Right Upper Arm] O2 Sat by Pulse 91 L Oximetry Oxygen Delivery Nasal Cannula Method ( includes room air) Oxygen Flow 3 Rate HEAD: Is atraumatic normocephalic. EYES: Pupils are equal round regular reactive to light accommodation. There is no clinical pallor. There is no scleral icterus. EARS: Tympanic membranes are intact. External artery canal is clear. NOSE: There is no deviated nasal septum. There is no inflammation of the nasal mucous membrane. MOUTH: Mucous membranes of the mouth are slightly dry. Tongue is dry. There is no ulcers in the mouth. There is no bleeding from the gums. THROAT: There is no redness of the oropharynx. There is no exudates. SKIN: There is no petechia or ecchymosis. There is no skin lesions. The nailbeds do not show any cyanosis or clubbing. There is no splinter hemorrhages. NECK: Is supple. There is no JVD. Carotids are equal there is no bruits. There is no lymphadenopathy. There is no goiter. There is no accessory muscle respiration use. Trachea central. LUNGS: Show a few bibasilar fine rales of CHF. There is no chest wall tenderness. There is no rhonchi or wheezing. HEART: S1-S2 is heard S1 is of normal intensity. There is no definite S3 gallop. There is a moderate murmur of mitral regurgitation heard in the apex with radiation posteriorly to the mid interscapular region in the back. There is no rub. There are no diastolic murmurs. ABDOMEN: Is soft. There is slight gaseous distention. There is no hepatosplenomegaly. There is no hepatic tenderness. Bowel sounds are well heard. There is no rebound guarding or rigidity. EXTREMITIES: Femorals are slightly diminished. There is no femoral bruits. Leg pulses are diminished. There is no DVT or cellulitis. There is mild bilateral ankle edema. There is no cyanosis or clubbing. There is no calf tenderness. RAILROAD REPAIRER: The patient is conscious awake alert oriented x3 with no focal deficits. PSYCH psychiatric: Patient judgment and insight are intact his affect is normal. 10/09/18 10/09/18 10/09/18 16:35 16:35 16:35 WBC RBC Hgb Hct MCV MCH MCHC RDW Plt Count PT 16.8 H INR 1.30 VBG pH VBG pCO2 VBG HCO3 VBG Base Excess Sodium 139.5 Potassium 4.9 Chloride 106 Carbon Dioxide 26 Anion Gap 8 BUN 27 H Creatinine 1.85 H Est GFR ( Amer) 45 L Glucose 105 POC Glucose Lactic Acid Calcium 8.5 Total Bilirubin 0.7 Direct Bilirubin 0.5 H Neonat Total Bilirubin Not Reportable Neonat Direct Bilirubin Not Reportable Neonat Indirect Bili AST 404 H ALT 414 H Alkaline Phosphatase 249 H Creatine Kinase 41 L CK-MB (CK-2) Troponin I NT-Pro-B Natriuret Pep Total Protein 5.9 L Albumin 3.0 L 10/09/18 10/09/18 10/09/18 16:35 16:56 16:59 WBC RBC Hgb Hct MCV MCH MCHC RDW Plt Count PT INR VBG pH VBG pCO2 VBG HCO3 VBG Base Excess Sodium Potassium Chloride Carbon Dioxide Anion Gap BUN Creatinine Est GFR ( Amer) Glucose POC Glucose 107 Lactic Acid 1.4 Calcium Total Bilirubin Direct Bilirubin Neonat Total Bilirubin Neonat Direct Bilirubin Neonat Indirect Bili AST ALT Alkaline Phosphatase Creatine Kinase CK-MB (CK-2) 0.30 Troponin I < 0.012 NT-Pro-B Natriuret Pep 5790 H Total Protein Albumin 10/09/18 10/09/18 10/09/18 16:59 23:36 23:36 WBC RBC Hgb Hct MCV MCH MCHC RDW Plt Count PT INR VBG pH 7.34 VBG pCO2 47.1 VBG HCO3 24.7 VBG Base Excess -1.3 Sodium Potassium Chloride Carbon Dioxide Anion Gap BUN Creatinine Est GFR ( Amer) Glucose POC Glucose Lactic Acid Calcium Total Bilirubin Direct Bilirubin Neonat Total Bilirubin Neonat Direct Bilirubin Neonat Indirect Bili AST ALT Alkaline Phosphatase Creatine Kinase 38 L CK-MB (CK-2) 0.29 Troponin I < 0.012 NT-Pro-B Natriuret Pep Total Protein Albumin 10/10/18 10/10/18 10/10/18 05:35 05:35 05:35 WBC 7.4 RBC 3.11 L Hgb 8.5 L Hct 25.7 L MCV 83 MCH 27.3 MCHC 33.1 RDW 19.9 H Plt Count 233 PT INR VBG pH VBG pCO2 VBG HCO3 VBG Base Excess Sodium 141.3 Potassium 4.6 Chloride 108 H Carbon Dioxide 24 Anion Gap 9 BUN 25 H Creatinine 1.44 H Est GFR ( Amer) > 60 Glucose 87 POC Glucose Lactic Acid Calcium 8.2 L Total Bilirubin 0.6 Direct Bilirubin 0.4 Neonat Total Bilirubin Not Reportable Neonat Direct Bilirubin Not Reportable Neonat Indirect Bili Not Reportable AST 252 H ALT 362 H Alkaline Phosphatase 204 H Creatine Kinase 31 L CK-MB (CK-2) 0.25 Troponin I 0.015 NT-Pro-B Natriuret Pep Total Protein 5.3 L Albumin 2.6 L 10/10/18 10/10/18 13:00 13:00 WBC RBC Hgb Hct MCV MCH MCHC RDW Plt Count PT INR VBG pH VBG pCO2 VBG HCO3 VBG Base Excess Sodium Potassium Chloride Carbon Dioxide Anion Gap BUN Creatinine Est GFR ( Amer) Glucose POC Glucose Lactic Acid Calcium Total Bilirubin Direct Bilirubin Neonat Total Bilirubin Neonat Direct Bilirubin Neonat Indirect Bili AST ALT Alkaline Phosphatase Creatine Kinase 36 L CK-MB (CK-2) 0.31 Troponin I < 0.012 NT-Pro-B Natriuret Pep Total Protein Albumin Home Meds Table Furosemide [Lasix 20 mg Tablet] 20 mg PO DAILY 10/10/18 Losartan Potassium [Cozaar 50 mg Tablet] 50 mg PO DAILY 10/10/18 Metoprolol Tartrate [Lopressor 50 mg Tablet] 50 mg PO Q12 10/10/18 Ondansetron HCl [Zofran 8 mg Tablet] 8 mg PO Q12HP PRN 10/10/18 10/09/18 17:12 Penicillin G Potassium [Pfizerpen Inj 5 Million Unit Vial] 18,000,000 unit IV IVBAG (ED) ONE 10/09/18 23:00 Heparin Sodium,Porcine [Heparin Inj 5,000 Units/ml 1 ml Syringe] 5,000 unit SUBCUT NOW ONE 10/10/18 00:14 Alteplase [Activase Cathflo Inj 2 mg (Cath Clearance)] 2 mg IV NOW ONE 10/10/18 02:49 Penicillin G Potassium [Pfizerpen Inj 5 Million Unit Vial] 5,000,000 unit .ROUTE .STK-MED ONE 10/10/18 12:00 Digoxin Inj [Lanoxin Inj 0.5 mg/2 ml Ampule] 0.25 mg IV NOW ONE 10/10/18 18:54 Lorazepam [Ativan Inj 2 mg/1 ml Vial] 2 mg .ROUTE .STK-MED ONE Bedside look at the echocardiogram, but being done shows severe mitral regurgitation. There is a good sized vegetation on the anterior mitral leaflet. There is also vegetation on the posterior mitral leaflet. Definitely ejection fraction seems to be preserved. Form will report to follow-up (please see report). CHEST X-ray: Shows cardiomegaly without josiah pulmonary edema. EKG shows sinus rhythm there is T inversion in leads III aVF, and leads V1, V2 and V3 suggestive of ischemia. IMPRESSION/recommendation: 1. Cardiogenic and septic shock: Continue antibiotics. Will start will continue the patient on dobutamine. Since this is brought the blood pressure up and also on the renal function is normalized, and the hepatic function tests are improving. Will add in view of the sepsis, vasopressin also. Continue antibiotics. Watch patient for any decompensation. Would strongly recommend to transfer the patient to tertiary [facility], since the patient in view of the patient's severe mitral regurgitation and tetlin mitral valve endocarditis may need CT surgery evaluation for possible surgical intervention on the valve. 2. [place] mitral valve endocarditis with mitral regurgitation which is severe. 3. Severe mitral regurgitation with a murmur heard in the apex radiating to the back at the mid intercostal area suggestive of a posteriorly directed mitral valve jet. 4. RENAL INSUFFICIENCY: Most likely secondary to patient's hypotension and sepsis. This seems to be improving. 5. Abnormal liver function tests, this is secondary to the patient's cardiac dysfunction. This is improved with current treatment. 6. History of hypertension, although at present the patient is hypotensive. At present we will hold the patient's Cozaar and metoprolol. 7. Diabetes mellitus type 2 [id number]: Continue monitor blood sugars, and treat accordingly. 8. Hyperlipidemia: At present we will hold the statins in view of the patient's abnormal liver function test. MEDICATIONS reviewed. Medications adjusted, and new medications added. Management plan discussed with the hospitalist attending physician. And also as mentioned earlier discussed the case with the CT surgeon. Medical decision making is of high complexity. 60 minutes spent on this patient with more than 50% of time spent in direct patient care. Since the patient being transferred to [facility], will sign off the case. Discussed with the patient, and the patient's and daughter. All questions answered. If the patient and the family so desires they can follow-up with me on return from [facility].
--- NOTE | 2018-10-10 23:26 | XCELERA REPORT ---
[address] [address] Transthoracic Echocardiogram Report Name: MINERVA MANUEL Age: 63 yrs Gender: Male : 1955 Patient Status: Inpatient Patient Location: ICU^603^A Study Date: 10/10/2018 10:35 AM Height: 68 in Weight: 207 lb BSA: 2.1 m2 Procedure: A two-dimensional transthoracic echocardiogram with color flow and Doppler was performed. Study Quality: Good. Reason For Study: Endocarditis / MR History: Endocarditis / MR. Ordering Physician: CALLIE OMALLEY Performed By: Ruby Mendoza Interpretation Summary The left ventricle is normal in size. There is normal left ventricular wall thickness. LV EF is 70% The left ventricular ejection fraction is normal. Doppler measurements suggest normal left ventricular diastolic function The left ventricular wall motion is normal. There is no thrombus. There is no ventricular septal defect visualized. The right ventricle is mild to moderately dilated. The right ventricular systolic function is mildly reduced. The right atrium is mildly dilated. The left atrium is moderately dilated. The interatrial septum is intact with no evidence for an atrial septal defect. There is no Doppler evidence for an interatrial shunt There is no evidence of mitral valve prolapse. There is a moderate size vegetation or mass on the mitral valve. on the anterior MV leaflet and small vegetation on the posterior MV leaflet. There is no mitral valve stenosis. There is a severe amount of mitral regurgitation Flow reversal noted in pulmonary veins consistent with significant mitral regurgitation. There is no aortic valvular vegetation. There is no aortic valve stenosis There is aortic sclerosis without aortic stenosis. There is no LVOT obstruction. No aortic regurgitation is present. There is no tricuspid stenosis. There is no tricuspid valve vegetation. There is a moderate amount of tricuspid regurgitation There is servere pulmonary hypertension by echo RVSP is 79 to 84 mm of Hg , with RA man of 15 to 20. There is no pulmonic valvular stenosis. There is a mild amount of pulmonic regurgitation The aortic root is normal size. The inferior vena cava appeared dilated and decreased < 50% with respiration (RAP 15-20 mmHg) There is no pericardial effusion. MMode/2D Measurements & Calculations RVDd: 3.4 cm LVIDd: 5.6 cm FS: 43.6 % Ao root diam: 2.5 cm IVSd: 0.89 cm LVIDs: 3.2 cm EDV(Teich): Ao root area: LVPWd: 0.94 cm 155.6 ml 4.9 cm2 ESV(Teich): 40.3 mlLA dimension: 4.5 cm EF(Teich): 74.1 % LVLd ap4: 8.4 cm SV(MOD-sp4): EDV(MOD-sp4): 65.0 ml 99.0 ml LVLs ap4: 6.5 cm ESV(MOD-sp4): 34.0 ml EF(MOD-sp4): 65.7 % Doppler Measurements & Calculations MV E max caterina: MV P1/2t max caterina: Ao V2 max: LV V1 max P.4 cm/sec 151.9 cm/sec 134.7 cm/sec 4.5 mmHg MV A max caterina: MV P1/2t: 50.0 msec Ao max PG: LV V1 max: 91.6 cm/sec MVA(P1/2t): 4.4 cm2 7.3 mmHg 105.8 cm/sec MV E/A: 1.7 MV dec slope: 889.0 cm/sec2 MV dec time: 0.18 sec PA V2 max: PI end-d caterina: TR max caterina: MV P1/2t-pr_phl: 64.1 cm/sec 195.5 cm/sec 397.7 cm/sec 50.0 msec PA max P.6 mmHg TR max P.3 mmHg Left Ventricle The left ventricle is normal in size. There is normal left ventricular wall thickness. LV EF is 70%. The left ventricular ejection fraction is normal. Doppler measurements suggest normal left ventricular diastolic function. The left ventricular wall motion is normal. There is no thrombus. There is no ventricular septal defect visualized. Right Ventricle The right ventricle is mild to moderately dilated. The right ventricular systolic function is mildly reduced. Atria The right atrium is mildly dilated. The left atrium is moderately dilated. The interatrial septum is intact with no evidence for an atrial septal defect. There is no Doppler evidence for an interatrial shunt. Mitral Valve There is no evidence of mitral valve prolapse. There is a moderate size vegetation or mass on the mitral valve. on the anterior MV leaflet and small vegetation on the posterior MV leaflet. There is no mitral valve stenosis. There is a severe amount of mitral regurgitation. Flow reversal noted in pulmonary veins consistent with significant mitral regurgitation. Aortic Valve There is no aortic valvular vegetation. There is no aortic valve stenosis. There is aortic sclerosis without aortic stenosis. There is no LVOT obstruction. No aortic regurgitation is present. Tricuspid Valve There is no tricuspid valve vegetation. There is no tricuspid stenosis. There is a moderate amount of tricuspid regurgitation. There is servere pulmonary hypertension by echo. RVSP is 79 to 84 mm of Hg , with RA man of 15 to 20. Pulmonic Valve There is no pulmonic valvular stenosis. There is a mild amount of pulmonic regurgitation. Great Vessels The aortic root is normal size. The inferior vena cava appeared dilated and decreased < 50% with respiration (RAP 15-20 mmHg). Effusions There is no pericardial effusion. : CALLIE OMALLEY > Callie Omalley
--- NOTE | 2018-10-11 14:38 | ER Document Report ---
Entered by ISA ESPINAL SCRIBE 10/09/18 1648 Acting as scribe for:VIKTORIA VILLARREAL MD ED General - General Chief Complaint: General Weakness Stated Complaint: LOW BLOOD PRESSURE Time Seen by Provider: 10/09/18 16:26 Mode of Arrival: Ambulatory Information source: Patient, Relative Notes: Patient is a 63 year old male presenting to the emergency department complaining of generalized weakness onset yesterday worsening today. Patient was admitted to the hospital on 09/19/2018 for pneumonia and discharged on 10/01/2018. During his hospitalization, patient's blood cultures was found to have grown Aerococcus and he subsequently had a PICC line inserted and placed on penicillin G. He was also diagnosed with endocarditis after a MARCELLE was performed. also reports decreased appetite. reports the patient being on 4L of oxygen at home since being discharged from the hospital. TRAVEL OUTSIDE OF THE [place] IN LAST 30 DAYS: No - Related Data Allergies/Adverse Reactions: No Known Allergies Allergy (Verified 10/09/18 21:15) Past Medical History - General Information source: Patient - Social History Smoking Status: Unknown if Ever Smoked Family History: CAD, Hypertension, Malignancy - Past Medical History Cardiac Medical History: Reports: Hx Hypercholesterolemia, Hx Hypertension Endocrine Medical History: Reports: Hx Diabetes Mellitus Type 2 GI Medical History: Reports: Hx Gastroesophageal Reflux Disease Review of Systems - Review of Systems Constitutional: See HPI, Weakness EENT: No symptoms reported Cardiovascular: No symptoms reported Respiratory: No symptoms reported Gastrointestinal: See HPI, Poor appetite Genitourinary: No symptoms reported Male Genitourinary: No symptoms reported Musculoskeletal: No symptoms reported Skin: No symptoms reported Hematologic/Lymphatic: No symptoms reported Neurological/Psychological: No symptoms reported -: Yes All other systems reviewed and negative Physical Exam - Vital signs Vitals: Temp Pulse Resp BP Pulse Ox 97.6 F 84 18 87/63 L 97 10/09/18 16:12 10/09/18 16:12 10/09/18 16:12 10/09/18 16:12 10/09/18 16:12 - Notes Notes: GENERAL: Alert, appear fatigued, follows commands. No acute distress. HEAD: Normocephalic, atraumatic. EYES: Pupils equal, round, and reactive to light. Extraocular movements intact. ENT: Oral mucosa moist, tongue midline. NECK: Full range of motion. Supple. Trachea midline. LUNGS: 92% oxygen saturation on 4L of nasal cannula. Rales bilaterally. No respiratory distress. HEART: 2/6 systolic murmur. ABDOMEN: Soft, obese, non-tender. Bowel sounds present in all 4 quadrants. EXTREMITIES: Moves all 4 extremities spontaneously. NEUROLOGICAL: Alert and oriented x3. Normal speech. PSYCH: Normal affect, normal mood. SKIN: Warm, dry, normal turgor. No rashes or lesions noted. Course - Re-evaluation Re-evalutation: 10/09/18 20:44 [facility] transfer line was contacted, Eloy reported that they are on diversion and would probably be at least 2 days before they can accept the patient. I did request that he faxed me a copy of the MARCELLE so I will have it when I call other facilities to find placement for this patient. At this time the patient is sitting up in bed leaning against the upright back rest. He is receiving his penicillin infusion. His blood pressure at this time is 108/80 with pulse of 90 and O2 sat of 100%. His blood pressures recorded just prior to discharge after a lengthy hospitalization this month showed systolic pressures in the mid 90s. 10/09/18 21:51 An echocardiogram done at this facility on 09/21/2018 reported a trace to mild amount of mitral valve regurgitation. A MARCELLE done on 09/27/2018 reported severe mitral regurgitation. - Vital Signs Vital signs: Temp Pulse Resp BP Pulse Ox 97.7 F 113 H 34 H 111/77 96 10/10/18 18:00 10/10/18 18:00 10/10/18 18:44 10/10/18 18:44 10/10/18 18:44 - Laboratory Result Diagrams: 10/10/18 05:35 10/10/18 05:35 Laboratory results interpreted by me: 10/09/18 10/09/18 10/09/18 16:35 16:35 16:35 RBC 3.30 L Hgb 8.9 L Hct 27.6 L RDW 19.7 H PT 16.8 H BUN 27 H Creatinine 1.85 H Est GFR ( Amer) 45 L Est GFR (Non-Af Amer) 37 L Direct Bilirubin 0.5 H AST 404 H ALT 414 H Alkaline Phosphatase 249 H Creatine Kinase NT-Pro-B Natriuret Pep Total Protein 5.9 L Albumin 3.0 L Urine Urobilinogen Urine Ascorbic Acid 10/09/18 10/09/18 10/09/18 16:35 16:35 20:40 RBC Hgb Hct RDW PT BUN Creatinine Est GFR ( Amer) Est GFR (Non-Af Amer) Direct Bilirubin AST ALT Alkaline Phosphatase Creatine Kinase 41 L NT-Pro-B Natriuret Pep 5790 H Total Protein Albumin Urine Urobilinogen 2.0 H Urine Ascorbic Acid 40 H - Diagnostic Test Radiology reviewed: Image reviewed, Reports reviewed - Cardiomegaly, small bilateral pleural effusions, no josiah pulmonary edema - EKG Interpretation by Me EKG shows normal: Sinus rhythm, [place], Intervals, QRS Complexes. abnormal: ST-T Waves - Abnormal T waves in the anterior leads Rate: Normal - 83 Rhythm: NSR When compared to previous EKG there are: Changes noted - Consults Dr. Christian Time consulted: 20:06 Consulted provider: other - Dr. Christian reviewed the case with me and the recent admission and the lab work from 2 days ago. He is concerned about abscess on 1 of the valve leaflets. He wants Dr. Navas to consult and see the patient prior to the patient being admitted here. Critical Care Note - Critical Care Note Total time excluding time spent on procedures (mins): 40 Discharge - Discharge Clinical Impression: Weakness, Elevated liver function tests, Severe mitral valve regurgitation Subacute infective endocarditis Qualifiers: Infective endocarditis organism: bacterial Qualified Code(s): I33.0 - Acute and subacute infective endocarditis Hypotension Qualifiers: Hypotension type: unspecified hypotension type Qualified Code(s): I95.9 - Hypotension, unspecified Disposition: ADMITTED INPATIENT I personally performed the services described in the documentation, reviewed and edited the documentation which was dictated to the scribe in my presence, and it accurately records my words and actions.
== END 2018-10-10 19:40 | disposition short-term general hospital (02) | DRG 306 ==
LOC: ER 16:07 → EH 22:58 → ICU 10-10 01:00
PROVIDERS: ADMIT Internal Medicine; ATTEND Internal Medicine
DX: I05.8 Other rheumatic mitral valve diseases (principal); K72.00 Acute and subacute hepatic failure without coma; R57.0 Cardiogenic shock; I33.0 Acute and subacute infective endocarditis; N17.9 Acute kidney failure, unspecified; I13.0 Hypertensive heart and chronic kidney disease with heart failure and stage 1 through stage 4 chronic kidney disease, or unspecified chronic kidney disease; I95.9 Hypotension, unspecified; N18.9 Chronic kidney disease, unspecified; D64.9 Anemia, unspecified; I50.9 Heart failure, unspecified; E11.22 Type 2 diabetes mellitus with diabetic chronic kidney disease; B96.89 Other specified bacterial agents as the cause of diseases classified elsewhere; Z79.84 Long term (current) use of oral hypoglycemic drugs; Z79.899 Other long term (current) drug therapy
CPT/HCPCS: 36415; 71045; 80053; 81001; 82550; 82553; 82803; 82962; 83605; 83880; 84484; 85025; 85610; 87040; 87086; 93005; 93010; 93306; 96365; 96366; 99291; J1160; J1250; J1265; J1644; J2060; J2540; J2997; J3490; J7040; J7060

== ENCOUNTER 2019-12-13 17:14 | Emergency (ER) | payer BC ==
--- NOTE | 2019-12-13 17:40 | ER Document Report ---
ED Medical Screen (RME) - General Chief Complaint: Arm Pain Stated Complaint: LEFT ARM PAIN Time Seen by Provider: 12/13/19 17:20 Primary Care Provider: KIKI NAVARRO MD [Primary Care Provider] - Follow up as needed Mode of Arrival: Ambulatory Information source: Patient Notes: 64-year-old male with history of diabetes high blood pressure cardiac disease presents to the emergency department with complaints of left arm pain and then numbness that started approximately 1800 last night. Denies trauma. Reports this never happened to him before. Denies history of stroke. Reports recent treatment for pneumonia. Patient definitely weaker in the left than in the right. Clear voice answers all question appropriately. Denies chest pain. I have greeted and performed a rapid initial assessment of this patient. A comprehensive ED assessment and evaluation of the patient, analysis of test results and completion of the medical decision making process will be conducted by additional ED providers. TRAVEL OUTSIDE OF THE [place] IN LAST 30 DAYS: No - Related Data Allergies/Adverse Reactions: No Known Allergies Allergy (Verified 10/09/18 21:15) Past Medical History - Past Medical History Cardiac Medical History: Reports: Hx Hypercholesterolemia, Hx Hypertension Endocrine Medical History: Reports: Hx Diabetes Mellitus Type 2 Renal/ Medical History: Denies: Hx Peritoneal Dialysis GI Medical History: Reports: Hx Gastroesophageal Reflux Disease Psychiatric Medical History: Denies: Hx Depression Physical Exam - Vital signs Vitals: Temp Pulse Resp BP Pulse Ox 97.5 F 100 24 H 151/84 H 100 12/13/19 17:18 12/13/19 17:18 12/13/19 17:18 12/13/19 17:18 12/13/19 17:18 Course - Vital Signs Vital signs: Temp Pulse Resp BP Pulse Ox 97.5 F 100 24 H 151/84 H 100 12/13/19 17:18 12/13/19 17:18 12/13/19 17:18 12/13/19 17:18 12/13/19 17:18 Doctor's Discharge - Discharge Referrals: KIKI NAVARRO MD [Primary Care Provider] - Follow up as needed
--- NOTE | 2019-12-13 17:49 | RADIOLOGY REPORT (SQ) ---
EXAM DESCRIPTION: CHEST SINGLE VIEW IMAGES COMPLETED DATE/TIME: 12/13/2019 5:39 pm REASON FOR STUDY: left arm numbness, pain COMPARISON: 10/09/2018 NUMBER OF VIEWS: One view. TECHNIQUE: Single frontal radiographic view of the chest acquired. LIMITATIONS: None. FINDINGS: LUNGS AND PLEURA: No opacities, masses or pneumothorax. No pleural effusion. MEDIASTINUM AND HILAR STRUCTURES: No masses. Contour normal. HEART AND VASCULAR STRUCTURES: Heart normal in size. Normal vasculature. Prior CABG. BONES: No acute findings. HARDWARE: CABG hardware. OTHER: No other significant finding. IMPRESSION: NO SIGNIFICANT RADIOGRAPHIC FINDING IN THE CHEST. PRIOR CABG. TECHNICAL DOCUMENTATION: JOB ID: [id number] 2010 [employer]- All Rights Reserved Reading location - IP/workstation name: [email or web address]
--- NOTE | 2019-12-13 18:16 | RADIOLOGY REPORT (SQ) ---
EXAM DESCRIPTION: CT HEAD WITHOUT IMAGES COMPLETED DATE/TIME: 12/13/2019 4:59 pm REASON FOR STUDY: left arm numbness, pain, weakness, eval for stroke COMPARISON: None. TECHNIQUE: Axial images acquired through the brain without intravenous contrast. Images reviewed wi th bone, brain and subdural windows. Images stored on PACS. All CT scanners at this facility use dose modulation, iterative reconstruction, and/or weight based d osing when appropriate to reduce radiation dose to as low as reasonably achievable (ALARA). [facility]: Dose Right [facility]: CareDose [facility]: Dose Right [facility]: Teradose 4D [facility]: Smart [place] RADIATION DOSE: CT Rad equipment meets quality standard of care and radiation dose reduction techniq ues were employed. CTDIvol: 53.2 mGy. DLP: 937 mGy-cm. mGy. LIMITATIONS: None. FINDINGS: VENTRICLES: Normal size and contour. CEREBRUM: No masses. No hemorrhage. No midline shift. No evidence for acute infarction. Normal gra y/white matter differentiation. No areas of low density in the white matter. CEREBELLUM: No masses. No hemorrhage. No alteration of density. No evidence for acute infarction. EXTRAAXIAL SPACES: No fluid collections. No masses. ORBITS AND GLOBE: No intra- or extraconal masses. Normal contour of globe without masses. CALVARIUM: No fracture. PARANASAL SINUSES: Polypoid mucosal secretions within the right maxillary sinus. No mucosal thickeni ng or sinus wall buttressing. SOFT TISSUES: No mass or hematoma. OTHER: No other significant finding. IMPRESSION: 1. No acute intracranial hemorrhage, mass, or evidence of acute territorial infarct. 2. Acute right maxillary sinusitis. EVIDENCE OF ACUTE STROKE: NO. COMMENT: Quality ID # [id number]: Final reports with documentation of one or more dose reduction techniques (e.g., Automated exposure control, adjustment of the mA and/or kV according to patient size, use of iterative reconstruction technique) TECHNICAL DOCUMENTATION: JOB ID: [id number] [employer]- All Rights Reserved Reading location - IP/workstation name: [email or web address]
[2019-12-13 18:17] LABS: ABSOLUTE LYMPHOCYTES (AUTO) 2.6 10^3/uL (0.5-4.7); ABSOLUTE MONOCYTES (AUTO) 0.7 10^3/uL (0.1-1.4); ABSOLUTE NEUT (AUTO) 7.2 10^3/uL (1.7-8.2); BASOPHILS % (AUTO) 0.3 % (0-2); EOSINOPHILS % (AUTO) 0.2 % (0-6); HEMOGLOBIN 9.6 g/dL (13.5-17.0); LYMPHOCYTES % (AUTO) 24.7 % (13-45); MEAN CORPUSCULAR HEMOGLOBIN 24.7 pg (27.0-33.4); MEAN CORPUSCULAR VOLUME 77 fl (80-97); PLATELET COUNT 251 10^3/uL (150-450); RED CELL DISTRIBUTION WIDTH 17.9 % (11.5-14.0); SEGMENTED NEUTROPHILS % (AUTO) 67.8 % (42-78); TOTAL CELLS COUNTED % (AUTO) 100 %; WHITE BLOOD COUNT 10.6 10^3/uL (4.0-10.5)
[2019-12-13 18:19] LABS: INTERNATIONAL RATION (INR) 1.21; PROTHROMBIN TIME 15.4 SEC (11.4-15.4)
[2019-12-13 18:20] LABS: PARTIAL THROMBOPLASTIN TIME 32.7 SEC (23.5-35.8)
[2019-12-13 18:34] LABS: ALBUMIN 3.5 g/dL (3.5-5.0); ALKALINE PHOSPHATASE 77 U/L (38-126); ANION GAP 11 (5-19); ASPARTATE AMINO TRANSFERASE 23 U/L (17-59); BILIRUBIN,DIRECT 0.3 mg/dL (0.0-0.4); BILIRUBIN,TOTAL 0.5 mg/dL (0.2-1.3); BLOOD UREA NITROGEN 10 mg/dL (7-20); CALCIUM 9.2 mg/dL (8.4-10.2); CARBON DIOXIDE 26 mmol/L (22-30); CHLORIDE 100 mmol/L (98-107); CREATINE KINASE 42 U/L (55-170); GLUCOSE 173 mg/dL (75-110); POTASSIUM 3.9 mmol/L (3.6-5.0); TOTAL PROTEIN 7.5 g/dL (6.3-8.2)
[2019-12-13 18:46] LABS: CREATINE KINASE MB 0.89 ng/mL (<4.55)
[2019-12-13 18:49] LABS: TROPONIN I 0.173 ng/mL
[2019-12-13] MEDS ORDERED: ONDANSETRON HCL INJ/PF 4 MG/2 ML SDV IV ONE (21:23)
--- NOTE | 2019-12-13 22:01 | RADIOLOGY REPORT (SQ) ---
EXAM DESCRIPTION: CT angiogram of the left upper extremity, chest, abdomen and pelvis. CLINICAL HISTORY: 64 years Male eval for occlusion, diminished pulse left upper extremity numbness, pain and weakness. TECHNIQUE: CT angiogram of the left upper extremity, chest, abdomen and pelvis was performed following the administration of IV contrast. Images were reconstructed on an independent workstation and sagittal and coronal thin section mid imaging was performed. All CT scans at this facility use dose modulation, iterative reconstruction, and/or weight based dosing when appropriate to reduce radiation dose to as low as reasonably achievable. COMPARISON: None. FINDINGS: CT angiogram of the left upper extremity: The left subclavian artery is normal. The axillary artery is normal. There is short segment occlusion of the proximal brachial artery in the upper arm. A proximally 5 cm distally there is reconstitution of the brachial artery in the mid upper extremity. Below the elbow joint there is trifurcation into the radial, ulnar and interosseous artery. There appears to be three-vessel runoff to the distal forearm. Soft tissues of the left upper extremity are unremarkable. Shoulder joint is located. No fracture is seen. Chest: Lungs: Bibasilar volume loss is seen in the dependent fashion along the fissure and in the posterior chest bilaterally. No focal consolidation. No pneumothorax or pleural effusion. Mediastinum: Four-chamber cardiac enlargement is noted and there is postsurgical change in the mitral valve. No pericardial abnormality. Small sliding hiatal hernia is present. Visualized portion of the thyroid gland is normal. The atrial appendages appear patent. Vascular: The thoracic aorta and proximal great vessels are normal. There is postsurgical change of CABG. No dissection or aneurysm. Central pulmonary arteries are normal. Bones: The sternum is healed after sternotomy. There is endplate spondylosis in the thoracic spine. No destructive bone lesions. Abdomen: Liver and Biliary tree: The early enhanced liver has a 2 cm low-density area in the right liver lobe. The liver is otherwise unremarkable. Gallbladder appears normal. No biliary dilatation. Hepatic artery is patent. Pancreas:Within normal limits Spleen:Within normal limits Kidneys: Kidneys are normal in size shape and position. No mass, stones or hydronephrosis. Symmetric renal enhancement. Adrenal glands:Within normal limits Vascular structures: The celiac access and SMA are patent. There are two right and two left renal arteries which are patent. Minimal mural plaque is seen in the infrarenal aorta. No aneurysm or dissection. In the right pelvis there is mild plaque in the distal common and proximal internal iliac artery. There is moderate narrowing of the proximal external iliac artery. In the left there is moderate plaque in the distal common iliac artery extending into the internal iliac artery origin. No occlusions or dissection. Retroperitoneum: No Mass or lymphadenopathy Abdominal Wall: Thinning and attenuation of the linea alba is seen. There is bilateral inguinal hernia contains containing fat. GI: Bowel is of normal caliber. No obstruction. No focal bowel wall thickening. Appendix: Appendix appears normal General: No free air. No free fluid. Pelvis: Lymph nodes: No pelvic mass or adenopathy. Organs: The bladder is mostly empty but does appear to be thick-walled. Prostate gland is unremarkable. Bones degenerative changes noted in the spine. No destructive bone lesions. IMPRESSION: 1. 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 Three-vessel runoff to the distal forearm. 2. Cardiomegaly with dependent density present in the lungs which may represent atelectasis or mild pulmonary edema. No aneurysm. No dissection. 3. Scattered vascular plaque most pronounced in the iliac vessels bilaterally. No significant stenosis. Note dissection or aneurysm. 4. No acute process is seen in the abdomen or pelvis.
--- NOTE | 2019-12-13 22:25 | ER Document Report ---
ED General - General Chief Complaint: Arm Pain Stated Complaint: LEFT ARM PAIN Time Seen by Provider: 12/13/19 17:20 Primary Care Provider: KIKI NAVARRO MD [Primary Care Provider] - Follow up as needed Mode of Arrival: Ambulatory TRAVEL OUTSIDE OF THE [place] IN LAST 30 DAYS: No - HPI Notes: Patient is a 64-year-old male, he is a very difficult historian. Evidently around 6 PM yesterday he started having pain in his arm, and he felt like it was numb. He states he was having difficulty using it. He states he was not sure if it was because of pain, but the pain seemed to worsen when he was trying to use his arm. He denies any chest pain or shortness of breath. No nausea. No difficulty seeing, speaking, swallowing. Is moving his legs without difficulty. He denies any recent head injuries. He has had no change in medications, with the exception of a Levaquin that was started for pneumonia. He only has 1 more dose left.. He currently puts his pain at a 1 out of 5, he states it really is not bothering him. He states that the numbness and tingling sensation seem to wax and wane. - Related Data Allergies/Adverse Reactions: No Known Allergies Allergy (Verified 12/13/19 18:04) Home Medications: Metformin 1 g daily, hydralazine 10 mg 3 times a day, metoprolol 25 mg twice a day, ferrous sulfate 325 mg twice a day, bare aspirin 325 mg daily, simvastatin 40 mg daily, vitamin D2 1.25 once a week, Levaquin 500 mg daily Past Medical History - General Information source: Patient - Social History Smoking Status: Former Smoker Family History: CAD, Hypertension, Malignancy Patient has suicidal ideation: No Patient has homicidal ideation: No - Past Medical History Cardiac Medical History: Reports: Hx Coronary Artery Disease, Hx Hypercholesterolemia, Hx Hypertension, Other - History of endocarditis with valve replacement Endocrine Medical History: Reports: Hx Diabetes Mellitus Type 2 Renal/ Medical History: Denies: Hx Peritoneal Dialysis GI Medical History: Reports: Hx Gastroesophageal Reflux Disease Psychiatric Medical History: Denies: Hx Depression Past Surgical History: Reports: Hx Cardiac Surgery - valve replacement Review of Systems - Review of Systems Musculoskeletal: See HPI Neurological/Psychological: See HPI Physical Exam - Vital signs Vitals: Temp Pulse Resp BP Pulse Ox 97.5 F 100 24 H 151/84 H 100 12/13/19 17:18 12/13/19 17:18 12/13/19 17:18 12/13/19 17:18 12/13/19 17:18 - Notes Notes: Vital signs reviewed, please refer to chart. Head is normocephalic, atraumatic. Pupils equal round, reactive to light. Neck is supple without meningismus. Heart is regular rate and rhythm. Lungs are clear to auscultation bilaterally. Abdomen is soft, nontender, normoactive bowel sounds throughout. Extremities without cyanosis, clubbing. Posterior calves are nontender. Examination of the left upper extremity yields no obvious visual deformity. He is chilled to the touch throughout the entire hand. He is full range of motion of the shoulder, elbow, wrist, fingers, thumb. I am unable to palpate radial or ulnar pulse. Capillary refill is slowed, although my assessment of this is limited secondary to his skin pigment. His refractory specialist strength is 4+ out of 5. Course - Re-evaluation Re-evalutation: 12/13/19 22:23 Patient presents emergency department for evaluation. He had laboratory investigations as ordered through triage. Evidently he was not flagged as needing to be seen by a physician, I was notified after his troponin came back as positive that he needed to be seen. I went and evaluated the patient, and found that he had no apparent pulse in his left upper extremity. Blood pressure in the left upper extremity was 82/34, while it was normal in the right upper extremity. I was concerned about the possibility of a dissection in this diabetic patient, who could potentially be having a more significant problem in his chest that was leading to this without having any significant symptoms. CT angiogram of the chest and left upper extremity were ordered. CT angiogram of the left upper extremity revealed a short segment occlusion of the brachial artery in the left just distal to the origin of the brachial artery to the level of the mid humerus. He does have three-vessel runoff to the distal forearm. Ongoing contact vascular surgery for next step in management. 12/13/19 23:[address] Duffy, vascular surgeon at [facility]. Initially had ordered low-dose heparin for the patient, he asked that high-dose heparin protocol be initiated. He accepted the patient to the emergency department for further evaluation. Dr. Hodan Willams will be excepting ED attending. 12/13/19 23:20 12/14/19 00:44 Patient's came back into the emergency department. I explained to her the details regarding his diagnosis, his transfer. Evidently the patient had gotten up and gone to the bathroom. Upon arriving back in the bed his heart rate was in the 130s. He is still exhibiting a sinus mechanism. On further questioning, the patient has not had any of his evening medications. He is on metoprolol 25 mg twice daily. Patient was told to get back into bed. He is not to stand up under any circumstances. I will order his metoprolol 25 mg orally. Still awaiting transport. 12/14/19 01:20 Patient's heart rate is down to 119. Respiratory rate is normal. I still strongly suspect this is all secondary to deconditioning and lack of metoprolol. Patient is stable for transport. - Vital Signs Vital signs: Temp Pulse Resp BP Pulse Ox 97.5 F 98 33 H 157/88 H 100 12/13/19 17:18 12/13/19 18:01 12/14/19 00:01 12/14/19 00:01 12/14/19 00:01 - Laboratory Result Diagrams: 12/13/19 18:06 12/13/19 18:06 Laboratory results interpreted by me: 12/13/19 12/13/19 12/13/19 18:01 18:06 18:06 WBC 10.6 H RBC 3.90 L Hgb 9.6 L Hct 30.0 L MCV 77 L MCH 24.7 L RDW 17.9 H Sodium 136.7 L Glucose 173 H POC Glucose 226 H Creatine Kinase 42 L - Diagnostic Test Radiology reviewed: Image reviewed, Reports reviewed Radiology results interpreted by me: 12/13/19 23:20 Abdomen/Pelvis CTA 12/13/19 00:00 IMPRESSION: 1. 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 Three-vessel runoff to the distal forearm. 2. Cardiomegaly with dependent density present in the lungs which may represent atelectasis or mild pulmonary edema. No aneurysm. No dissection. 3. Scattered vascular plaque most pronounced in the iliac vessels bilaterally. No significant stenosis. Note dissection or aneurysm. 4. No acute process is seen in the abdomen or pelvis. Chest X-Ray 12/13/19 17:31 IMPRESSION: NO SIGNIFICANT RADIOGRAPHIC FINDING IN THE CHEST. PRIOR CABG. Head CT 12/13/19 17:31 IMPRESSION: 1. No acute intracranial hemorrhage, mass, or evidence of acute territorial infarct. 2. Acute right maxillary sinusitis. EVIDENCE OF ACUTE STROKE: NO. Chest/Abdomen CTA 12/13/19 19:08 IMPRESSION: 1. 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 Three-vessel runoff to the distal forearm. 2. Cardiomegaly with dependent density present in the lungs which may represent atelectasis or mild pulmonary edema. No aneurysm. No dissection. 3. Scattered vascular plaque most pronounced in the iliac vessels bilaterally. No significant stenosis. Note dissection or aneurysm. 4. No acute process is seen in the abdomen or pelvis. Upper Extremity Angiography 12/13/19 19:09 IMPRESSION: 1. 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 Three-vessel runoff to the distal forearm. 2. Cardiomegaly with dependent density present in the lungs which may represent atelectasis or mild pulmonary edema. No aneurysm. No dissection. 3. Scattered vascular plaque most pronounced in the iliac vessels bilaterally. No significant stenosis. Note dissection or aneurysm. 4. No acute process is seen in the abdomen or pelvis. - EKG Interpretation by Me Additional EKG results interpreted by me: 12/13/19 23:20 Sinus tachycardia with rate of 104 bpm. Left axis deviation. Right bundle branch block. This is a change from prior study performed October 09, 2018 Critical Care Note - Critical Care Note Total time excluding time spent on procedures (mins): 55 Discharge - Discharge Clinical Impression: Occlusion of left brachial artery, Elevated troponin Condition: Stable Disposition: [facility] Admitting Provider: Dr. Willams, ED physician and Dr. Duffy, vascular surgeon Referrals: KIKI NAVARRO MD [Primary Care Provider] - Follow up as needed
[2019-12-13] MEDS ORDERED: HEPARIN SODIUM,PORCINE/D5W 25,000 UNIT/250 ML RTUINJ IV PRN ×2 (22:28→23:07)
[2019-12-13] MEDS: HEPARIN SOD (PORCINE) 1,000 UNIT/ML 10 ML VIAL IV ONE ×2 (23:00→23:16)
[2019-12-13] MEDS ORDERED: HEPARIN SOD (PORCINE) 1,000 UNIT/ML 10 ML VIAL IV ONE (23:07)
[2019-12-14 00:18] VITALS: BP 157/88
[2019-12-14] MEDS ORDERED: METOPROLOL TARTRATE 25 MG TABLET PO ONE (00:44)
[2019-12-14] MEDS ORDERED: HEPARIN SOD (PORCINE) 1,000 UNIT/ML 10 ML VIAL IV PRN ×2 (01:28→02:08)
--- NOTE | 2019-12-14 10:57 | EKG REPORT ---
SEVERITY:- ABNORMAL ECG - SINUS TACHYCARDIA RIGHT BUNDLE BRANCH BLOCK : Confirmed by: Jordin Trujillo 14-Dec-2019 10:56:28
== END 2019-12-14 02:35 | disposition short-term general hospital (02) ==
LOC: ER 17:14
DX: I70.208 Unspecified atherosclerosis of native arteries of extremities, other extremity (principal); I70.8 Atherosclerosis of other arteries; M79.602 Pain in left arm; R20.2 Paresthesia of skin; I45.10 Unspecified right bundle-branch block; R79.89 Other specified abnormal findings of blood chemistry; J01.00 Acute maxillary sinusitis, unspecified; E11.9 Type 2 diabetes mellitus without complications; I25.10 Atherosclerotic heart disease of native coronary artery without angina pectoris; E78.00 Pure hypercholesterolemia, unspecified; I11.9 Hypertensive heart disease without heart failure; J18.9 Pneumonia, unspecified organism; Z79.84 Long term (current) use of oral hypoglycemic drugs; Z79.82 Long term (current) use of aspirin; Z79.899 Other long term (current) drug therapy; Z95.2 Presence of prosthetic heart valve; Z87.891 Personal history of nicotine dependence; Z82.49 Family history of ischemic heart disease and other diseases of the circulatory system
CPT/HCPCS: 93005; 99291; 96375; 96365; 96366; 36415; 82553; 82962; 82550; 85025; 85610; 85730; 80053; 84484; 71045; 70450; 71275; 74174; 73206; 93010; J1644 ×2; J2405

== ENCOUNTER → 2020-02-23 | Outpatient (CLI) | payer BC, MEDICARE ==
[2020-02-23 12:31] LABS: INTERNATIONAL RATION (INR) 1.11; PROTHROMBIN TIME 14.4 SEC (11.4-15.4)
[2020-02-23 12:32] LABS: PARTIAL THROMBOPLASTIN TIME 34.7 SEC (23.5-35.8)
== END ==
LOC: OD 12:00
PROVIDERS: ATTEND Specialist
DX: Z95.2 Presence of prosthetic heart valve (principal); Z79.01 Long term (current) use of anticoagulants
CPT/HCPCS: 36415; 85610; 85730

== ENCOUNTER → 2020-03-25 | Outpatient (CLI) | payer MEDICARE ==
[2020-03-25 14:51] LABS: INTERNATIONAL RATION (INR) 1.07
== END ==
LOC: OD 13:59
PROVIDERS: ATTEND Specialist
DX: I25.10 Atherosclerotic heart disease of native coronary artery without angina pectoris (principal); I10 Essential (primary) hypertension; E11.9 Type 2 diabetes mellitus without complications; E78.49 Other hyperlipidemia; I45.19 Other right bundle-branch block; I45.2 Bifascicular block; R94.31 Abnormal electrocardiogram [ECG] [EKG]; R01.1 Cardiac murmur, unspecified; I51.3 Intracardiac thrombosis, not elsewhere classified; Z79.899 Other long term (current) drug therapy; Z95.1 Presence of aortocoronary bypass graft; Z95.2 Presence of prosthetic heart valve
CPT/HCPCS: 36415; 85610

== ENCOUNTER → 2020-05-19 | Outpatient (CLI) | payer MEDICARE ==
[2020-05-19 15:42] LABS: ABSOLUTE EOSINOPHILS # (AUTO) 0.1 10^3/uL (0.0-0.6); ABSOLUTE LYMPHOCYTES (AUTO) 2.3 10^3/uL (0.5-4.7); ABSOLUTE MONOCYTES (AUTO) 0.7 10^3/uL (0.1-1.4); ABSOLUTE NEUT (AUTO) 4.1 10^3/uL (1.7-8.2); BASOPHILS % (AUTO) 0.3 % (0-2); HEMATOCRIT 34.5 % (37.9-51.0); HEMOGLOBIN 11.2 g/dL (13.5-17.0); LYMPHOCYTES % (AUTO) 31.8 % (13-45); MEAN CORPUSCULAR HEMOGLOBIN 28.3 pg (27.0-33.4); MEAN CORPUSCULAR HGB CONC 32.5 g/dL (32.0-36.0); MEAN CORPUSCULAR VOLUME 87 fl (80-97); MONOCYTES % (AUTO) 9.2 % (3-13); PLATELET COUNT 236 10^3/uL (150-450); RED BLOOD COUNT 3.97 10^6/uL (4.35-5.55); RED CELL DISTRIBUTION WIDTH 15.8 % (11.5-14.0); SEGMENTED NEUTROPHILS % (AUTO) 56.7 % (42-78); TOTAL CELLS COUNTED % (AUTO) 100 %; WHITE BLOOD COUNT 7.2 10^3/uL (4.0-10.5)
[2020-05-19 15:46] LABS: INTERNATIONAL RATION (INR) 1.03; PROTHROMBIN TIME 13.7 SEC (11.4-15.4)
[2020-05-19 15:58] LABS: ANION GAP 9 (5-19); BLOOD UREA NITROGEN 15 mg/dL (7-20); CALCIUM 9.6 mg/dL (8.4-10.2); CARBON DIOXIDE 27 mmol/L (22-30); CHLORIDE 103 mmol/L (98-107); GLUCOSE 170 mg/dL (75-110); POTASSIUM 4.4 mmol/L (3.6-5.0)
== END ==
LOC: OD 14:51
PROVIDERS: ATTEND Specialist
DX: I25.10 Atherosclerotic heart disease of native coronary artery without angina pectoris (principal); Z95.2 Presence of prosthetic heart valve; Z95.1 Presence of aortocoronary bypass graft; I10 Essential (primary) hypertension; E11.9 Type 2 diabetes mellitus without complications; E78.49 Other hyperlipidemia; I45.19 Other right bundle-branch block; I45.2 Bifascicular block; R94.31 Abnormal electrocardiogram [ECG] [EKG]; R01.1 Cardiac murmur, unspecified; I51.3 Intracardiac thrombosis, not elsewhere classified; E78.5 Hyperlipidemia, unspecified; Z79.899 Other long term (current) drug therapy
CPT/HCPCS: 36415; 80048; 85025; 85610

== ENCOUNTER → 2020-06-30 | Outpatient (CLI) | payer MEDICARE, BC ==
[2020-06-30 14:05] LABS: INTERNATIONAL RATION (INR) 1.25; PROTHROMBIN TIME 15.9 SEC (11.4-15.4)
== END ==
LOC: OD 13:24
PROVIDERS: ATTEND Specialist
DX: I25.10 Atherosclerotic heart disease of native coronary artery without angina pectoris (principal); E11.9 Type 2 diabetes mellitus without complications; E78.49 Other hyperlipidemia; I45.19 Other right bundle-branch block; I10 Essential (primary) hypertension; I25.5 Ischemic cardiomyopathy; I51.3 Intracardiac thrombosis, not elsewhere classified; I45.2 Bifascicular block; R01.1 Cardiac murmur, unspecified; Z95.2 Presence of prosthetic heart valve; Z95.1 Presence of aortocoronary bypass graft; Z79.899 Other long term (current) drug therapy
CPT/HCPCS: 36415; 85610

== ENCOUNTER → 2020-07-14 | Outpatient (CLI) | payer MEDICARE, BC ==
[2020-07-14 15:50] LABS: INTERNATIONAL RATION (INR) 1.29; PROTHROMBIN TIME 16.3 SEC (11.4-15.4)
== END ==
LOC: OD 15:07
PROVIDERS: ATTEND Specialist
DX: I25.10 Atherosclerotic heart disease of native coronary artery without angina pectoris (principal); I10 Essential (primary) hypertension; E11.9 Type 2 diabetes mellitus without complications; E78.49 Other hyperlipidemia; I45.19 Other right bundle-branch block; I45.2 Bifascicular block; R94.31 Abnormal electrocardiogram [ECG] [EKG]; R01.1 Cardiac murmur, unspecified; I51.3 Intracardiac thrombosis, not elsewhere classified; I25.5 Ischemic cardiomyopathy; L27.1 Localized skin eruption due to drugs and medicaments taken internally; Z95.2 Presence of prosthetic heart valve; Z95.1 Presence of aortocoronary bypass graft; Z86.79 Personal history of other diseases of the circulatory system; Z79.899 Other long term (current) drug therapy
CPT/HCPCS: 36415; 85610

== ENCOUNTER → 2020-07-19 | Outpatient (CLI) | payer MEDICARE, BC ==
[2020-07-20 12:47] LABS: INTERNATIONAL RATION (INR) 2.32
[2020-07-20 12:49] LABS: PROTHROMBIN TIME 25.5 SEC (11.4-15.4)
== END ==
LOC: OD 13:35
PROVIDERS: ATTEND Specialist
DX: Z53.8 Procedure and treatment not carried out for other reasons (principal)
CPT/HCPCS: 36415; 85610